=== PATIENT | male | born 1935 | race Caucasian/White ===

== ENCOUNTER 2020-05-06 13:52 | Emergency (ER) | payer MEDICARE, MEDICAID, SELFPAY ==
[2020-05-06] VITALS (7 sets, daily range): BP systolic 131–147; BP diastolic 65–89; PULSE 89–106; RESP 14–26; TEMP 36.7; O2SAT 82–97
--- NOTE | ~2020-05-06 | CT_ITS ---
EXAMINATION: CT brain wo con DATE: 05/06/2020 14:26 INDICATION: Fall. Confusion. TECHNIQUE: Computed tomography (CT) of the head was performed without intravenous contrast. The mA wa s adjusted according to patient size. Iterative reconstruction technique was employed. Exam dose: 68 1.00 mGy-cm total exam DLP. COMPARISON: 01/27/2019 CT brain FINDINGS: No intracranial mass lesion or hemorrhage, midline shift or mass effect effect. Chronic lac unar infarct of right basal ganglia. Chronic lacunar infarct of left thalamus. There is central and cortical cerebral atrophy. There is nonspecific diminished attenuation of the ce rebral white matter, likely due to chronic small vessel ischemic changes. Prominent bilateral interna l carotid artery calcifications and vertebral artery calcifications. No subdural or epidural hematoma. Mucous retention cyst or polyp of the anteromedial wall of the left maxillary sinus. Mild mucoperiost eal thickening of the anterior and lateral song of the left maxillary sinus. The paranasal sinuses o therwise are normally developed and aerated. Mastoid air cells are normally developed and aerated. No fracture or bone destruction of the cranial vault. IMPRESSION: Cerebral atherosclerosis and chronic small vessel ischemic changes of cerebral white mat ter, and bilateral chronic lacunar infarcts No acute intracranial finding Reviewed, dictated and finalized at [facility]. Reviewed, dictated and finalized at [facility]. TLING COACH IMPRESSION: Cerebral atherosclerosis and chronic small vessel ischemic changes of cerebral white matter, and bilateral chronic lacunar infarcts No acute intracranial finding
--- NOTE | 2020-05-06 14:01 | ECG_ITS ---
Measurements Intervals [place] Rate: 102 P: [place]: 0 QRS: -47 QRSD: 118 T: 78 QT: 339 QTc: 443 Interpretive Statements ATRIAL FIBRILLATION WITH RAPID VENTRICULAR RESPONSE VENTRICULAR PREMATURE COMPLEX LEFT ANTERIOR FASCICULAR BLOCK VOLTAGE CRITERIA FOR LVH BORDERLINE ST-T WAVE ABNORMALITY- HIGH LATERAL LEADS ABNORMAL ECG Electronically Signed On 05-06-2020 19:56:06 [employer] by Perez Nolen D.O.
--- NOTE | 2020-05-06 14:03 | ED.FALL ---
HPI - Fall General Chief Complaint: Fall Stated Complaint: rolled out of bed Source: patient and EMS Mode of arrival: EMS Limitations: no limitations History of Present Illness HPI Narrative: 85-year-old male came into the emergency department after a [facility] bed [facility]. Reportedly he was reaching for a drink on exam table, rolled too far and fell out of bed. According to penitentiary staff the patient had no complaints but they wanted him to get checked out anyway . Patient is able to tell me where he is, the month and year. He cannot exactly recall the events of the fall and is uncertain if he hit his head. Patient complains of no pain at this time. Related Data Home Medications Medication Instructions Recorded Confirmed clonazepam 05/06/20 furosemide 05/06/20 05/06/20 levetiracetam PO 05/06/20 lisinopril 05/06/20 memantine-donepezil [Namzaric] PO 05/06/20 mirtazapine mg 05/06/20 potassium chloride [Klor-Con 10] meq PO 05/06/20 quetiapine 05/06/20 tamsulosin mg PO 05/06/20 Allergies Allergy/AdvReac Type Severity Reaction Status Date / Time chlorpromazine Allergy Mild Unknown Verified 05/06/20 15:34 haloperidol Allergy Mild Unknown Verified 05/06/20 15:34 iodine Allergy Mild Unknown Verified 05/06/20 15:34 medrysone Allergy Mild Unknown Verified 05/06/20 15:34 olanzapine Allergy Mild Unknown Verified 05/06/20 15:34 tetanus toxoid, adsorbed Allergy Mild Unknown Verified 05/06/20 15:34 codeine Allergy Unknown Unknown Verified 05/06/20 15:34 digoxin Allergy Unknown Unknown Verified 05/06/20 15:34 fluphenazine Allergy Unknown Unknown Verified 05/06/20 15:34 LIVER AND STOM Allergy Mild Unknown Uncoded 05/06/20 15:34 SEAFOOD Allergy Mild Unknown Uncoded 05/06/20 15:34 MIKE HOSE AdvReac Unknown Unknown Uncoded 05/06/20 15:34 Review of Systems Review of Systems: Narrative: CONSTITUTIONAL: Denies fever, chills, or sweats. EYES: Denies visual changes, redness, or discharge. ENT: Denies rhinorrhea, congestion, sore throat, or otalgia. CARDIOVASCULAR: Denies chest pain, palpitations, or edema. RESPIRATORY: Denies cough or dyspnea. GASTROINTESTINAL: Denies abdominal pain, nausea, vomiting, or diarrhea. GENITOURINARY: Denies dysuria or hematuria. SKIN: Denies rash or itching. MUSCULOSKELETAL: Denies back pain, joint pain, or myalgia. NEUROLOGIC: Denies headache, numbness, dizziness, or weakness. PSYCHIATRIC: Denies anxiety or depression. Exam Narrative: Exam Narrative: GENERAL: Well-appearing, well-nourished, and in no acute distress. HEAD: Normocephalic, atraumatic. EYES: PERRLA and EOMI. ENT: Nares clear, no rhinorrhea or epistaxis. Mucous membranes moist. Oropharynx without tonsillar hypertrophy exudate or other lesions. Bilateral TMs pearly barrgia nonbulging NECK: Supple. No adenopathy or masses. No carotid bruits or JVD CHEST: Clear to auscultation. No respiratory distress. No wheezes rales or rhonchi HEART: Regular rate and rhythm. No murmur heard. Normal peripheral pulses. ABDOMEN: Soft, nontender, nondistended, normal active bowel sounds. EXTREMITIES: Normal range of motion. No edema. No TTP on either bilateral lower extremities. Chronic contractures of the bilateral upper extremities. SKIN: Warm, dry, no rash. NEURO: No focal deficits. Alert and oriented x3. PSYCH: Normal mood and affect. Course Vital Signs Vital signs: Vital Signs Temperature 36.7 C 05/06/20 13:45 Pulse Rate 95 05/06/20 13:45 Respiratory Rate 14 05/06/20 13:45 Blood Pressure 131/89 05/06/20 13:45 Temperature 36.7 C 05/06/20 13:45 Pulse Rate 95 05/06/20 13:45 Respiratory Rate 14 05/06/20 13:45 Blood Pressure 131/89 05/06/20 13:45 MDM - Fall MDM Narrative Medical decision making narrative: In brief this 85-year-old male came into the emergency department with no complaints. As the story was a little bit confused I did go ahead and CT the patient's head to rule out any signs of
== END 2020-05-06 19:15 ==
PROVIDERS: Emergency Provider Emergency Medicine; PCP Internal Medicine
DX: Z04.3 Encounter for examination and observation following other accident (principal); I48.91 Unspecified atrial fibrillation; I49.3 Ventricular premature depolarization; I44.4 Left anterior fascicular block; R94.31 Abnormal electrocardiogram [ECG] [EKG]; I67.2 Cerebral atherosclerosis; W06.XXXA Fall from bed, initial encounter
CPT/HCPCS: 70450; 93005; 99284

== ENCOUNTER 2020-09-09 13:03 | Inpatient (IN) | payer MEDICARE, MEDICAID, SELFPAY ==
[2020-09-09] VITALS (24 sets, daily range): BP systolic 72–134; BP diastolic 53–96; PULSE 54–137; RESP 16–29; TEMP 36.2; O2SAT 83–98
--- NOTE | ~2020-09-09 | US_ITS ---
EXAMINATION: US thoracentesis DATE: 09/18/2020 14:13 INDICATION: pleural effusion TECHNIQUE: The skin was prepped and draped in sterile fashion. 1% lidocaine was used for local anesth esia. Under ultrasound guidance, a 5 Fr catheter with trochar was advanced into the left pleural effu moe. Fluid was aspirated. The catheter was removed, and a dressing was applied. There were no immedi ate complications. FINDINGS: Ultrasound images demonstrate a left pleural effusion and the catheter within the fluid. IMPRESSION: 1. Successful ultrasound-guided thoracentesis yielding 1150 mL of ccfibpx-eibzs-idjeijl fluid. Reviewed, dictated and finalized at location [facility]. IMPRESSION: 1. Successful ultrasound-guided thoracentesis yielding 1150 mL of reddish-ambe r-colored fluid.
--- NOTE | ~2020-09-09 | XR_ITS ---
EXAMINATION: [id number] DATE: 09/17/2020 16:02 INDICATION: Left pleural effusion status post thoracentesis. TECHNIQUE: Anteroposterior and lateral views of the chest were obtained. COMPARISON: Chest single view 09/14/2020 FINDINGS: The patient is rotated to his left on the frontal view. There is complete opacification of left hemithorax with rightward displacement of the mediastinum, consistent with large pleural effusio n. There is a small right pleural effusion. No pneumothorax. Calcified right hilar lymph nodes are co nsistent with old granulomatous disease. The heart size is obscured. There are surgical clips in the abdomen. IMPRESSION: 1. Large left pleural effusion with complete opacification of left hemithorax and rightward displacem ent of the mediastinum. 2. Stable small right pleural effusion. Reviewed, dictated and finalized at location [facility]. IMPRESSION: 1. Large left pleural effusion with complete opacification of left hemithorax a nd rightward displacement of the mediastinum. 2. Stable small right pleural effusion.
--- NOTE | ~2020-09-09 | XR_ITS ---
EXAMINATION: XR chest 1V portable INDICATION: Pleural effusion TECHNIQUE: Portable AP chest at 0946 hours COMPARISON: 09/10/2020 FINDINGS: There is persistent complete opacification of the left hemithorax. There is mild persistent rightward shift of the mediastinum. A small right pleural effusion is noted. The cardiac silhouette is obscured. No pneumothorax is identified. Healed left-sided rib fractures are noted. IMPRESSION: 1. Persistent complete opacification of the left hemithorax, predominantly pleural effusion. 2. Small right pleural effusion. Reviewed, dictated and finalized at location [facility]. IMPRESSION: 1. Persistent complete opacification of the left hemithorax, predominantly pleu ral effusion. 2. Small right pleural effusion.
--- NOTE | ~2020-09-09 | XR_ITS ---
EXAMINATION: XR chest 1V portable INDICATION: Cough TECHNIQUE: Portable AP chest at 1359 hours COMPARISON: 01/01/2018 FINDINGS: There is complete opacification of the left hemithorax. The cardiac silhouette is obscured. There are patchy opacities of the right mid and lower lung zones. No pneumothorax is identified. IMPRESSION: 1. Complete opacification of the left hemithorax which could be due to effusion, atelectasis, mass, o r a combination thereof. Further evaluation with CT of the chest with contrast is recommended. 2. Patchy opacities of the right mid and lower lung zones, consistent with atelectasis versus pneumon ia. Reviewed, dictated and finalized at location [facility]. IMPRESSION: 1. Complete opacification of the left hemithorax which could be due to effusion , atelectasis, mass, or a combination thereof. Further evaluation with CT of th e chest with contrast is recommended. 2. Patchy opacities of the right mid and lower lung zones, consistent with atel ectasis versus pneumonia.
--- NOTE | ~2020-09-09 | US_ITS ---
EXAMINATION: US thoracentesis DATE: 09/10/2020 16:08 INDICATION: Left pleural effusion. TECHNIQUE: The skin was prepped and draped in sterile fashion. 1% lidocaine was used for local anesth esia. Under ultrasound guidance, a 5 Fr catheter with trochar was advanced into the left pleural effu moe. Fluid was aspirated. The catheter was removed, and a dressing was applied. There were no immedi ate complications. FINDINGS: Ultrasound images demonstrate a left pleural effusion and the catheter within the fluid. IMPRESSION: 1. Successful ultrasound-guided thoracentesis yielding 1000 mL of clear, yellow fluid. Reviewed, dictated and finalized at location [facility]. IMPRESSION: 1. Successful ultrasound-guided thoracentesis yielding 1000 mL of clear, yello w fluid.
--- NOTE | ~2020-09-09 | XR_ITS ---
EXAMINATION: XR barium swallow modified DATE: 09/13/2020 09:10 INDICATION: Cough TECHNIQUE: Modified barium esophagram was performed by myself to administered fluoroscopy, in conjun ction with speech pathologist who administered barium in varying consistencies as per speech patholog ist documentation. This was recorded on tape. A single fluoroscopic spot image was recorded. The DAP for this procedure was 14.662 Gycm2. Fluoroscopy exposure time was 5.9 minutes. FINDINGS: Oral stage: Adequate function. Pharyngeal phase: Adequate function. Laryngeal penetration: Present with thin and mildly thickened liquids. Aspiration: Suspected. Laryngeal sensitivity: Absent. IMPRESSION: Laryngeal penetration with suspected aspiration. Please refer to speech pathologist findi ngs and specific feeding recommendations. Reviewed, dictated and finalized at location [facility]. IMPRESSION: Laryngeal penetration with suspected aspiration. Please refer to sp eech pathologist findings and specific feeding recommendations.
--- NOTE | ~2020-09-09 | XR_ITS ---
[id number] 09/12/2020 13:59 Indication: Postthoracentesis. Evaluate for pneumothorax. Procedure: AP portable chest Comparison: 09/10/2020 Findings: Large left pleural effusion with complete opacification left hemithorax. No pneumothorax id entified. Right basilar airspace disease. Cardiomegaly. There is atherosclerosis of the aorta. Small right pleural effusion. Impression: 1: Large left pleural effusion with complete opacification of the left hemithorax. 2: Right basilar airspace disease, atelectasis versus pneumonia. 3: Small right pleural effusion. Reviewed, dictated and finalized at location [facility]. Impression: 1: Large left pleural effusion with complete opacification of the left hemithor ax. 2: Right basilar airspace disease, atelectasis versus pneumonia. 3: Small right pleural effusion.
--- NOTE | ~2020-09-09 | US_ITS ---
EXAMINATION: US art doppler w press UE BI DATE: 09/13/2020 14:11 INDICATION: Cyanosis at the right hand. TECHNIQUE: Segmental pressures and plethysmographic and Doppler waveforms of the upper extremity margarita kathy were obtained. COMPARISON: None. FINDINGS: Right and left brachial artery pressures of 137 mm Hg and 149 mm Hg, respectively, are concordant (no rmal difference <= 30 mmHg). The right wrist-brachial index is 0.96 (normal > 1.0). Finger pressures were unable to be obtained to assess for finger brachial indices due to artifact from persistent coral ent movement. Arterial waveforms are biphasic with brisk systolic upstrokes throughout the right uppe r limb (normal upstroke < 0.2 s). The right wrist brachial index is 0.96. The right wrist-brachial index is 0.96 (normal > 1.0). Finger pressures were unable to be obtained to assess for finger brachial indices due to artifact from pers istent patient movement. Arterial waveforms are biphasic with brisk systolic upstrokes throughout the left upper limb. IMPRESSION: 1. Mild arterial occlusive disease to the bilateral upper limits with mildly decreased bilateral wris t brachial indices. 2. Cardiac arrhythmia is present. Correlate with EKG. Reviewed, dictated and finalized at location A. IMPRESSION: 1. Mild arterial occlusive disease to the bilateral upper limits with mildly de creased bilateral wrist brachial indices. 2. Cardiac arrhythmia is present. Correlate with EKG.
--- NOTE | ~2020-09-09 | XR_ITS ---
XR hip RT min 3V w AP pelvis 09/12/2020 13:59 Indication: Right hip pain Procedure: AP pelvis and 3 views right hip Comparison: No prior studies for comparison. Findings: Moderate osteoarthritis of the hips. Moderate rectal fecal loading. No fracture or traumati c malalignment is identified. There are extensive vascular calcifications. Impression: 1: No acute fracture. 2: Moderate bilateral osteoarthritis of the hips. Reviewed, dictated and finalized at location B. Impression: 1: No acute fracture. 2: Moderate bilateral osteoarthritis of the hips.
--- NOTE | ~2020-09-09 | US_ITS ---
EXAMINATION: US thoracentesis DATE: 09/14/2020 13:24 INDICATION: Left pleural effusion TECHNIQUE: The procedure and its risks and benefits were discussed with the patient. Potential risks discussed included bleeding, infection, and pneumothorax. The patient understood the risks and agreed to proceed. The skin was prepped and draped in sterile fashion. 1% lidocaine was used for local anes thesia. Under ultrasound guidance, a 5 Fr catheter with trochar was advanced into the left pleural ef fusion. Fluid was aspirated. The catheter was removed, and a dressing was applied. There were no imme diate complications. FINDINGS: Ultrasound images demonstrate a large left pleural effusion and the catheter within the fluid. IMPRESSION: 1. Successful ultrasound-guided thoracentesis yielding 1100 mL of kdvgday-[id number] fluid. Reviewed, dictated and finalized at location A. IMPRESSION: 1. Successful ultrasound-guided thoracentesis yielding 1100 mL of reddish-ambe r-colored fluid.
--- NOTE | ~2020-09-09 | US_ITS ---
EXAMINATION: US venous doppler [facility] DATE: 09/10/2020 17:25 INDICATION: Lower limb swelling. TECHNIQUE: Grayscale ultrasound images without and with compression and Doppler ultrasound images of the bilateral lower extremity veins were obtained. COMPARISON: None. FINDINGS: The visualized portions of right common femoral vein, profunda (deep) femoral vein, femoral vein, pop liteal vein, peroneal veins, posterior tibial veins, and greater saphenous vein outflow are patent. The visualized portions of left common femoral vein, profunda femoral vein, femoral vein, popliteal v ein, peroneal veins, posterior tibial veins, and greater saphenous vein outflow are patent. IMPRESSION: 1. No deep venous thrombosis. Reviewed, dictated and finalized at location A.
--- NOTE | ~2020-09-09 | XR_ITS ---
EXAMINATION: [id number]_CR DATE: 09/10/2020 16:20 INDICATION: Left pleural effusion status post thoracentesis. TECHNIQUE: A single frontal view of the chest was obtained. COMPARISON: Chest single view 09/09/2020, chest CT 09/10/2020 FINDINGS: The patient is rotated to his left. There is complete opacification of left hemithorax. The re is a small right pleural effusion. There are airspace opacities at right lung base, likely atelect asis. No pneumothorax. The heart size is obscured. There are old healed left rib fractures. IMPRESSION: 1. Complete opacification of left hemithorax, likely predominantly large pleural effusion. Improvemen t in the previously seen rightward mediastinal shift status post left-sided thoracentesis. 2. Small right pleural effusion. Reviewed, dictated and finalized at location A. IMPRESSION: 1. Complete opacification of left hemithorax, likely predominantly large pleura l effusion. Improvement in the previously seen rightward mediastinal shift stat us post left-sided thoracentesis. 2. Small right pleural effusion.
--- NOTE | ~2020-09-09 | US_ITS ---
EXAMINATION: US thoracentesis DATE: 09/17/2020 16:04 INDICATION: pleural effusion TECHNIQUE: Consent was provided by the patient's daughter. The skin was prepped and draped in sterile fashion. 1% lidocaine was used for local anesthesia. Under ultrasound guidance, a 5 Fr catheter with trochar was advanced into the left pleural effusion. Fluid was aspirated. The catheter was removed, and a dressing was applied. There were no immediate complications. FINDINGS: Ultrasound images demonstrate a left pleural effusion and the catheter within the fluid. IMPRESSION: 1. Successful ultrasound-guided thoracentesis yielding 1000 mL of reddish tiffany-colored fluid. Reviewed, dictated and finalized at location A. IMPRESSION: 1. Successful ultrasound-guided thoracentesis yielding 1000 mL of reddish ambe r-colored fluid.
--- NOTE | ~2020-09-09 | XR_ITS ---
EXAMINATION: [id number]_CR DATE: 09/14/2020 13:24 INDICATION: Left pleural effusion postthoracentesis TECHNIQUE: frontal view of the chest was obtained. COMPARISON: 09/13/2020 FINDINGS: Persistent complete opacification of left hemithorax consistent with large left pleural effusion and near-complete of not complete left lung collapse. Persistent opacities in the right lower lung zone c onsistent with small right pleural effusion and associated basilar atelectasis and/or pneumonia. No p neumothorax. Cardiomegaly. IMPRESSION: 1. Persistent complete opacification of the left hemithorax consistent with large left pleural effusi on and complete or near complete collapse of the left lung. 2. Unchanged small right pleural effusion with right basilar atelectasis and/or pneumonia. Reviewed, dictated and finalized at location A. IMPRESSION: 1. Persistent complete opacification of the left hemithorax consistent with lar ge left pleural effusion and complete or near complete collapse of the left pito g. 2. Unchanged small right pleural effusion with right basilar atelectasis and/or pneumonia.
--- NOTE | ~2020-09-09 | XR_ITS ---
EXAMINATION: [id number]_CR DATE: 09/18/2020 14:17 INDICATION: Left pleural effusion status post thoracentesis. TECHNIQUE: Frontal and lateral views of the chest were obtained. COMPARISON: Chest 2 views 09/17/2020 FINDINGS: The patient is rotated to his left on the frontal view. There is a small right pleural effu moe. There is complete opacification of left hemithorax with rightward displacement of the mediastin um. There is mild atelectasis at right lung base. No pneumothorax. The heart size is obscured. There are old healed bilateral rib fractures. Surgical clips in the right upper quadrant are likely from ch olecystectomy. IMPRESSION: 1. Large left pleural effusion with complete opacification of left hemithorax and rightward displacem ent of the mediastinum. 2. Stable small right pleural effusion. Reviewed, dictated and finalized at location A. IMPRESSION: 1. Large left pleural effusion with complete opacification of left hemithorax a nd rightward displacement of the mediastinum. 2. Stable small right pleural effusion.
--- NOTE | ~2020-09-09 | CT_ITS ---
EXAMINATION: CT chest high resolution wo co DATE: 09/10/2020 08:14 INDICATION: Abnormal chest x-ray. Pleural effusion. TECHNIQUE: Computed tomography (CT) of the chest was performed without intravenous contrast. The dose -length product was 299.53 mGy-cm. Automated exposure control and iterative reconstruction technique were employed. COMPARISON: Chest x-ray dated 09/09/2020 FINDINGS: Large left pleural effusion. Moderate right pleural effusion. Mediastinal shift to the righ t. There is atherosclerosis of the aorta and coronary arteries. There is mediastinal lymphadenopathy. There is compressive atelectasis of the left lung which is completely collapsed. There is compressiv e atelectasis of the right lung. There is focal masslike consolidation in the right upper lobe with a ir bronchograms, most likely infectious/inflammatory, although neoplasm is not excluded. There is dex troscoliosis with mild thoracic spondylosis. IMPRESSION: 1. Masslike consolidation right upper lobe near the apex, most likely infectious/inflammatory, althou gh neoplasm excluded. 2: Large left and moderate right pleural effusions with underlying compressive atelectasis. 3: Mediastinal shift to the right. 4: Mediastinal lymphadenopathy, nonspecific. Reviewed, dictated and finalized at location B. IMPRESSION: 1. Masslike consolidation right upper lobe near the apex, most likely infectiou s/inflammatory, although neoplasm excluded. 2: Large left and moderate right pleural effusions with underlying compressive atelectasis. 3: Mediastinal shift to the right. 4: Mediastinal lymphadenopathy, nonspecific.
--- NOTE | ~2020-09-09 | CT_ITS ---
EXAMINATION: CT brain wo con INDICATION: Altered mental status COMPARISON: 05/06/2020 TECHNIQUE: Standard unenhanced head CT. The dose-length product (DLP) was 908.00 mGy-cm. The mA was a djusted according to patient size. Iterative reconstruction technique was employed. FINDINGS: Motion artifact 6limits the examination. There is no acute intraparenchymal hemorrhage. No evidence of mass lesion. No evidence of acute infarction. There is moderate periventricular and subco rtical hypodensity probably related to small vessel ischemic disease. There is moderate prominence of the sulci and ventricles related to cerebral atrophy. Intracranial calcified cerebral atherosclerosi s is noted. There are no extra-axial collections. There is no mass effect or midline shift. The orbit s and soft tissues are unremarkable. There is mild mucosal thickening of the paranasal sinuses. IMPRESSION: 1. No acute intracranial abnormality. 2. Age related findings. Reviewed, dictated and finalized at location A.
--- NOTE | ~2020-09-09 | US_ITS ---
EXAMINATION: US thoracentesis DATE: 09/13/2020 14:00 INDICATION: Left pleural effusion TECHNIQUE: The procedure and its risks and benefits were discussed with the patient. Potential risks discussed included bleeding, infection, and pneumothorax. The patient understood the risks and agreed to proceed. The skin was prepped and draped in sterile fashion. 1% lidocaine was used for local anes thesia. Under ultrasound guidance, a 5 Fr catheter with trochar was advanced into the left pleural ef fusion. Fluid was aspirated. The catheter was removed, and a dressing was applied. There were no imme diate complications. FINDINGS: Ultrasound images demonstrate a large left pleural effusion and the catheter within the fluid. IMPRESSION: 1. Successful ultrasound-guided thoracentesis yielding 1000 mL of clear tiffany-colored fluid. Reviewed, dictated and finalized at location A. IMPRESSION: 1. Successful ultrasound-guided thoracentesis yielding 1000 mL of clear tiffany- colored fluid.
--- NOTE | ~2020-09-09 | XR_ITS ---
EXAMINATION: [id number]_[id number]_CR DATE: 09/13/2020 14:03 INDICATION: Left pleural effusion postthoracentesis TECHNIQUE: frontal view of the chest was obtained. COMPARISON: Chest radiograph dated 09/12/2020 FINDINGS: Persistent complete opacification of the left hemithorax consistent with large left pleural effusion and near complete if not complete left lower lobar collapse. Opacities in the right lower lung zone c onsistent with small right pleural effusion and associated basilar atelectasis and/or pneumonia. No p neumothorax. Borderline heart size accounting for AP technique. Aneurysmal thoracic aorta. Thoracic d extrocurvature with moderate spondylosis. Chronic nonunited lateral left clavicle fracture. IMPRESSION: 1. Persistent complete opacification of the left hemithorax consistent with large left pleural effusi on and complete or near complete collapse of the left lung. 2. Small right pleural effusion with right basilar atelectasis and/or pneumonia. Reviewed, dictated and finalized at location A. IMPRESSION: 1. Persistent complete opacification of the left hemithorax consistent with lar ge left pleural effusion and complete or near complete collapse of the left pito g. 2. Small right pleural effusion with right basilar atelectasis and/or pneumonia .
--- NOTE | ~2020-09-09 | US_ITS ---
EXAMINATION: US renal BI DATE: 09/10/2020 17:25 INDICATION: Acute kidney injury. TECHNIQUE: Multiple ultrasound grayscale images of the kidneys were obtained. COMPARISON: None. FINDINGS: The right kidney measures 9.1 x 5.1 x 4.8 cm. The left kidney measures 7.8 x 3.8 x 4.2 cm. The kidney s demonstrate normal parenchymal echogenicity. There is a 1.3 cm cyst in left kidney. There is no hyd ronephrosis. The bladder is decompressed by a Verdugo catheter. There is a small volume of perihepatic ascites. IMPRESSION: 1. Mild atrophy of left kidney. No hydronephrosis. 2. Small volume of perihepatic ascites. Reviewed, dictated and finalized at location A.
--- NOTE | ~2020-09-09 | US_ITS ---
EXAMINATION: US venous doppler [facility] DATE: 09/18/2020 14:14 INDICATION: Lower limb swelling TECHNIQUE: Cruz scale images without and with compression and Doppler images of the bilateral lower e xtremity veins were obtained. COMPARISON: 09/10/2020 FINDINGS: The right common femoral vein, profunda femoral vein, femoral vein, popliteal vein, peroneal trunk, p osterior tibial veins, and greater saphenous vein are patent. The left common femoral vein, profunda femoral vein, femoral vein, popliteal vein, peroneal trunk, po sterior tibial veins, and greater saphenous vein are patent. IMPRESSION: 1. Patent bilateral lower extremity veins. No evidence of deep venous thrombosis. Reviewed, dictated and finalized at location B. IMPRESSION: 1. Patent bilateral lower extremity veins. No evidence of deep venous thrombosi s.
--- NOTE | ~2020-09-09 | US_ITS ---
EXAMINATION: US thoracentesis DATE: 09/12/2020 13:56 INDICATION: Left pleural effusion TECHNIQUE: The procedure and its risks and benefits were discussed with the patient. Potential risks discussed included bleeding, infection, and pneumothorax. The patient understood the risks and agreed to proceed. The skin was prepped and draped in sterile fashion. 1% lidocaine was used for local anes thesia. Under ultrasound guidance, a 5 Fr catheter with trochar was advanced into the left pleural ef fusion. Fluid was aspirated. The catheter was removed, and a dressing was applied. There were no imme diate complications. FINDINGS: Ultrasound images demonstrate a large left pleural effusion and the catheter within the fluid. IMPRESSION: 1. Successful ultrasound-guided thoracentesis yielding 1000 mL of clear tiffany-colored fluid. Reviewed, dictated and finalized at location A. IMPRESSION: 1. Successful ultrasound-guided thoracentesis yielding 1000 mL of clear tiffany- colored fluid.
--- NOTE | 2020-09-09 13:19 | ECG_ITS ---
Measurements Intervals [place] Rate: 115 P: [place]: 0 QRS: -3 QRSD: 94 T: 208 QT: 296 QTc: 410 Interpretive Statements ATRIAL FIBRILLATION WITH RAPID VENTRICULAR RESPONSE INCOMPLETE RIGHT BUNDLE BRANCH BLOCK ST-T WAVE ABNORMALITY IN ANTEROLAT/HIGH LAT LEADS- CONSIDER ISCHEMIA ABNORMAL ECG Electronically Signed On 09-09-2020 19:25:05 CDT by Perez Nolen D.O.
[2020-09-09] MEDS: IPRATROPIUM BR 0.02% INH SOLN 0.5 MG/2.5 ML VIAL INHALATION ×2 (13:58→21:10)
[2020-09-09] MEDS: ALBUTEROL SULFATE NEB 2.5 MG/0.5 ML INH 5 MG INHALATION ×2 (13:58→21:10)
[2020-09-09 14:22] LABS: Basophils Percent Auto 0.3 % (0.2-1.2); Hematocrit 47.2 % (42.0-52.0); Hemoglobin 14.4 g/dL (14.0-18.0); Immature Granulocyte Absolute 0.04 K/mm3 (0.00-0.031); Immature Granulocyte Percent A 0.4 % (0-0.5); Lymphocytes Absolute Auto 0.77 K/mm3 (0.9-3.2); Mean Corpuscular HGB Conc 30.5 g/dl (32-36); Mean Corpuscular Hemoglobin 31.1 pg (26-34); Mean Corpuscular Volume 101.9 fl (80-100); Monocytes Absolute Auto 0.5 K/mm3 (0.1-0.6); Neutrophils Absolute Auto 8.3 K/mm3 (1.3-6.7); Neutrophils Percent Auto 86.3 % (45.5-73.1); Platelet Count Result 256 k/mm3 (150-375); Red Blood Count 4.63 M/mm3 (4.6-6.20); White Blood Count 9.6 K/mm3 (4.5-10.0)
[2020-09-09 14:31] LABS: Lactic Acid Reflex 1.4 mmol/L (0.7-2.1)
[2020-09-09 15:03] LABS: Anion Gap 13 mmol/L (8-16); Blood Urea Nitrogen 62 mg/dL (9-20); Calcium 9.7 mg/dL (8.4-10.2); Carbon Dioxide 20 mmol/L (22-30); Chloride 111 mmol/L (98-107); Estimated CRCL calculation 22 ml/min; Estimated Glomerular Filt Rate 30; Glucose 122 mg/dL (75-110); Potassium 5.2 mmol/L (3.4-5.0); Sodium 144 mmol/L (137-145)
--- NOTE | 2020-09-09 16:34 | ED.AMS ---
HPI - Altered Mental Status General Chief Complaint: Altered Mental Status Stated Complaint: unresponsive Time Seen by Provider: 09/09/20 13:41 Source: EMS and old records reviewed Mode of arrival: EMS Limitations: clinical condition and dementia History of Present Illness HPI narrative: 85-year-old male Sent from nursing facility for evaluation of unresponsiveness There is a bit of lack of clarity as to whether he is a comfort measures patient or a DNR patient penitentiary is unclear and family cannot be reached Either way there is not a ton of history in their paperwork and the patient cannot contribute Related Data Home Medications Medication Instructions Recorded Confirmed clonazepam 05/06/20 furosemide 05/06/20 05/06/20 levetiracetam PO 05/06/20 lisinopril 05/06/20 memantine-donepezil [Namzaric] PO 05/06/20 mirtazapine mg 05/06/20 potassium chloride [Klor-Con 10] meq PO 05/06/20 quetiapine 05/06/20 tamsulosin mg PO 05/06/20 Allergies Allergy/AdvReac Type Severity Reaction Status Date / Time chlorpromazine Allergy Mild Unknown Verified 05/06/20 15:34 haloperidol Allergy Mild Unknown Verified 05/06/20 15:34 iodine Allergy Mild Unknown Verified 05/06/20 15:34 medrysone Allergy Mild Unknown Verified 05/06/20 15:34 olanzapine Allergy Mild Unknown Verified 05/06/20 15:34 tetanus toxoid, adsorbed Allergy Mild Unknown Verified 05/06/20 15:34 codeine Allergy Unknown Unknown Verified 05/06/20 15:34 digoxin Allergy Unknown Unknown Verified 05/06/20 15:34 fluphenazine Allergy Unknown Unknown Verified 05/06/20 15:34 LIVER AND STOM Allergy Mild Unknown Uncoded 05/06/20 15:34 SEAFOOD Allergy Mild Unknown Uncoded 05/06/20 15:34 MIKE HOSE AdvReac Unknown Unknown Uncoded 05/06/20 15:34 Review of Systems Review of Systems: ROS unobtainable: Yes unobtainable due to medical condition and unobtainable due to mental status PMFSH Social History Social History Gender identity (if verbalized by the patient): Male Exam Const: General: cooperative Limitations: altered mental status Other: Opens eyes to command HENMT: Head: normal to inspection, normocephalic and atraumatic Ears: external ears normal General nose exam: no epistaxis Mouth: Yes dry mucous membranes Eyes: Conjunctivae: conjunctivae normal EOM: EOMs intact bilaterally Neck: Neck: normal visual inspection, supple and no JVD Resp: Effort & Inspection: normal respiratory effort, labored and tachypneic Auscultation: diminished lung sounds and other (BS =) Cardio: Rate: tachycardic Rhythm: abnormal rhythm irregularly irregular GI: GI Palp: Yes Soft to palpation and No Guarding due to palpation present (GI) Skin: General skin exam: normal color and no rashes or lesions noted Neuro: Other: Limited exam, opens eyes Extrem: General: edema Course Vital Signs Vital signs: Vital Signs Temperature 36.2 C L 09/09/20 13:15 Pulse Rate 125 H 09/09/20 13:15 Respiratory Rate 18 09/09/20 13:15 Blood Pressure 122/96 H 09/09/20 13:15 Pulse Oximetry 98 09/09/20 13:15 Temperature 36.2 C L 09/09/20 13:15 Pulse Rate 115 H 09/09/20 15:27 Respiratory Rate 26 H 09/09/20 15:27 Blood Pressure 101/78 09/09/20 15:27 Pulse Oximetry 94 09/09/20 15:27 MDM - Altered Mental Status Lab Data Result diagrams: 09/09/20 14:15 09/09/20 14:44 Labs: Lab Results 09/09/20 09/09/20 09/09/20 Range/Units 14:15 14:15 14:44 WBC 9.6 (4.5-10.0) K/mm3 RBC 4.63 (4.6-6.20) M/mm3 Hgb 14.4 (14.0-18.0) g/dL Hct 47.2 (42.0-52.0) % MCV 101.9 H (80-100) fl MCH 31.1 (26-34) pg MCHC 30.5 L (32-36) g/dl RDW 15.0 H (11.5-14.5) % Plt Count 256 (150-375) k/mm3 MPV 11.0 H (7.4-10.4) fl Immature Gran % (Auto) 0.4 (0-0.5) % Neut % (Auto) 86.3 H (45.5-73.1) % Lymph % (Auto) 8.0 L (18.3-44.2) % [place] % (Auto) 5
[2020-09-09] MEDS: METOPROLOL TARTRATE INJ 5 MG/5 ML VIAL IV PUSH (17:13)
[2020-09-09] MEDS: LACTATED RINGERS 1,000 ML 150 ML IV CONT (17:17)
[2020-09-09] MEDS: LORazepam INJ (*CRX) 2 MG/ML VIAL 1 MG IV PUSH (18:09)
--- NOTE | 2020-09-09 21:35 | PM.IMHP ---
H&P: HPI History of Present Illness Date/Time: 09/09/20 21:35 this is a 85-year-old male patient who resides at [facility]. The patient is listed as a DNR. Patient is not able to answer questions. Initially in the emergency room there was some question whether the patient was DNR full code. But after reviewing the half-way paperwork it is clear that the patient is a DNR. The patient does have a history of altered mental status. He has signs involving cognitive function and awareness. The patient has a history of nontraumatic intracranial hemorrhage. He has a history of dysphagia. Of the left blue thorax which could be due to fusion, atelectasis, mass or combination thereof. Patchy opacities of the right in the lower lung zones, consistent with atelectasis versus pneumonia. The patient was started on azithromycin Rocephin. The patient is hypoxic. He was placed on oxygen 2-3 L. He was started on IV fluids. He was given Ativan, a azithromycin Rocephin in the emergency room. The patient is being admitted to inpatient services on the date of service of 09/09/2020. Chief Complaint: Unresponsiveness Review of Systems Review of Systems: ROS unobtainable: Yes unobtainable due to mental status PMFSH Past Medical History Medical History (Updated 09/09/20 @ 22:05 by Angeli Renteria NP) Anxiety Atrial fibrillation BPH (benign prostatic hyperplasia) Chronic GERD Dementia Dysphagia History of DVT (deep vein thrombosis) History of intracranial hemorrhage HTN (hypertension), malignant Seizure disorder Surgical History Surgical History (Updated 09/09/20 @ 21:49 by Angeli Renteria NP) H/O abdominal surgery The patient has multiple scars on his abdomen Family History Family History (Updated 09/09/20 @ 21:51 by Angeli Renteria NP) Unknown Unknown family medical history Social History Social History (Updated 09/09/20 @ 21:52 by Angeli Renteria NP) Social History: The patient is listed as a DNR. According to his face sheet he is retired and . There was a ector that is listed as durable power litigation attorney. Gender identity (if verbalized by the patient): Male Meds Home Medications and Allergies Home Medications Medication Instructions Recorded Confirmed Type clonazepam 05/06/20 History furosemide 05/06/20 05/06/20 History levetiracetam PO 05/06/20 History lisinopril 05/06/20 History memantine-donepezil [Namzaric] PO 05/06/20 History mirtazapine mg 05/06/20 History potassium chloride [Klor-Con 10] meq PO 05/06/20 History quetiapine 05/06/20 History tamsulosin mg PO 05/06/20 History acetaminophen 325 mg PO ONCE PRN 09/09/20 09/09/20 History azithromycin 09/09/20 History calcium carbonate 600 mg PO DAILY 09/09/20 09/09/20 History ferrous sulfate [iron] 325 mg PO DAILY 09/09/20 09/09/20 History Allergies Allergy/AdvReac Type Severity Reaction Status Date / Time chlorpromazine Allergy Mild Unknown Verified 09/09/20 19:14 haloperidol Allergy Mild Unknown Verified 09/09/20 19:14 iodine Allergy Mild Unknown Verified 09/09/20 19:14 medrysone Allergy Mild Unknown Verified 09/09/20 19:14 olanzapine Allergy Mild Unknown Verified 09/09/20 19:14 tetanus toxoid, adsorbed Allergy Mild Unknown Verified 09/09/20 19:14 codeine Allergy Unknown Unknown Verified 09/09/20 19:14 digoxin Allergy Unknown Unknown Verified 09/09/20 19:14 fluphenazine Allergy Unknown Unknown Verified 09/09/20 19:14 LIVER AND STOM Allergy Mild Unknown Uncoded 09/09/20 19:14 SEAFOOD Allergy Mild Unknown Uncoded 09/09/20 19:14 MIKE HOSE AdvReac Unknown Unknown Uncoded 09/09/20 19:14 Vital Signs Vital Signs - 24 hr 09/09/20 13:15 09/09/20 13:31 09/09/20 13:46 Temperature 36.2 C L Pulse Rate 125 H 135 H 135 H Respiratory Rate 18 20 22 H Blood Pressure 122/96 H 134/94 H 120/81 Pulse Oximetry 98 94 94 09/09/20 13:58 09/09/20 14:02 09/09/20 14:09 Temperature Pulse Rate 122 H 137 H
[2020-09-09] MEDS: FAMOTIDINE 20 MG/2 ML VIAL IV PUSH (22:37)
[2020-09-09] MEDS: levETIRAcetam 500MG/NACL 100ML 500 MG/100 ML BAG 400 MG IVPB (23:22)
[2020-09-10] VITALS (18 sets, daily range): BP systolic 87–132; BP diastolic 61–90; PULSE 50–102; RESP 20–47; TEMP 35.8–36.7; O2SAT 81–100
[2020-09-10] MEDS: IPRATROPIUM BR 0.02% INH SOLN 0.5 MG/2.5 ML VIAL INHALATION ×4 (02:07→20:23)
[2020-09-10] MEDS: ALBUTEROL SULFATE NEB 2.5 MG/0.5 ML INH 5 MG INHALATION ×4 (02:07→20:23)
--- NOTE | 2020-09-10 06:26 | ADMGEN ---
This patient, Rich Elliott, was admitted to [address] [facility] Surg Room 321-01. Patient/family oriented to hospital policies and general routines including ID bracelet, bed and alarms, visiting hours, pain management, procedures, bathroom and other care routines, personal items, smoking policy, room service/diet, and visiting hours. Information on how to activate the Rapid Response Team has been discussed. Patient/Family are encouraged to report perceived risks to care and to ask questions if they do not understand what they are told or what they should do. Patient has been unresponsive for the entire shift. He was admitted at 1930. ED held him for approximately 3 hours after they said they would admit him. Then the ED nurse demanded that the receiving RN take report immediately while they were taking shift report for their other patients. Report was taken by the charge nurse and it was briefly relayed to the receiving nurse after shift report. It was reported that he was here for comfort care though the orders and report appear to indicate he is here for treatment of pleural effusion. Only his R upper lobe appeared clear, the rest of his lung su were severely diminished to absent. He was not responsive to anything but sternal rub, all 4 extremities were flaccid. He came with a medication list from his facility. A Verdugo was inserted with immediate results of about 50 ml clear yellow urine. It was reported that family was not responding to phone calls.
[2020-09-10 06:31] LABS: Basophils Percent Auto 0.4 % (0.2-1.2); Hematocrit 44.5 % (42.0-52.0); Hemoglobin 13.6 g/dL (14.0-18.0); Immature Granulocyte Absolute 0.03 K/mm3 (0.00-0.031); Immature Granulocyte Percent A 0.4 % (0-0.5); Lymphocytes Absolute Auto 0.92 K/mm3 (0.9-3.2); Lymphocytes Percent Auto 11.5 % (18.3-44.2); Mean Corpuscular HGB Conc 30.6 g/dl (32-36); Mean Corpuscular Hemoglobin 31.1 pg (26-34); Mean Corpuscular Volume 101.6 fl (80-100); Mean Platelet Volume 10.2 fl (7.4-10.4); Monocytes Absolute Auto 0.6 K/mm3 (0.1-0.6); Neutrophils Absolute Auto 6.4 K/mm3 (1.3-6.7); Neutrophils Percent Auto 79.7 % (45.5-73.1); Platelet Count Result 250 k/mm3 (150-375); Red Blood Count 4.38 M/mm3 (4.6-6.20); Red Cell Distribution Width 14.7 % (11.5-14.5)
[2020-09-10 06:39] LABS: Alanine Aminotransferase 26 U/L (4-50); Albumin Level 3.8 g/dL (3.5-5.1); Alkaline Phosphatase 105 U/L (38-126); Anion Gap 12 mmol/L (8-16); Aspartate Amino Transferase 34 U/L (17-59); Bilirubin,Total 0.5 mg/dL (0.2-1.3); Blood Urea Nitrogen 70 mg/dL (9-20); Calcium 9.5 mg/dL (8.4-10.2); Carbon Dioxide 25 mmol/L (22-30); Chloride 108 mmol/L (98-107); Estimated CRCL calculation 16 ml/min; Estimated Glomerular Filt Rate 22; Glucose 108 mg/dL (75-110); Lactic Acid Reflex 1.7 mmol/L (0.7-2.1); Magnesium 2.4 mg/dL (1.6-2.3); Potassium 5.1 mmol/L (3.4-5.0); Sodium 145 mmol/L (137-145)
[2020-09-10 10:10] LABS: Alveolar/Arterial O2 Gradient 86.5 mmHg; Base Excess ABG -4.8 mEq/l (+/-2.0); Carboxyhemoglobin 0.4 % THb (0-2.0); Fractional Inspired Oxygen 32 %; HCO3 ABG 23.7 mEq/l (22.0-26.0); Methemoglobin ABG 0.3 %THb (0-1.5); Oxygen Content ABG 19.2 %vol (16.0-22.0); Oxygen Saturation ABG 91.8 % (95.0-100.0); PO2 ABG 73.8 mmHg (80.0-100.0); PO2 FiO2 Ratio Arterial Blood 2.31 %; Reduced Hemoglobin 6.3 %THb (0-5.0); Total Hemoglobin 14.7 g/dL (12.0-18.0)
[2020-09-10 10:12] LABS: Ammonia < 9 umol/L (9-30)
[2020-09-10 10:13] LABS: Lactic Acid Reflex 1.5 mmol/L (0.7-2.1)
[2020-09-10 10:15] LABS: Modified Allen's Test Pass; Site Drawn LEFT RADIAL; pH ABG 7.229 (7.350-7.450)
[2020-09-10 10:15] LABS: INR 1.2; Prothrombin Time 16.2 Seconds (11.1-14.7)
[2020-09-10 10:16] LABS: Device NASAL CANNULA
[2020-09-10 10:27] LABS: Troponin I 0.072 ng/mL (0.000-0.034)
[2020-09-10 10:29] LABS: Estimated CRCL calculation 16 ml/min; Estimated Glomerular Filt Rate 21
[2020-09-10 11:22] LABS: Folic Acid 11.5 ng/mL (2.76->20); Vitamin B12 > 1000.0 pg/mL (239-931)
--- NOTE | 2020-09-10 12:06 | PM.IMPN ---
Progress Note: A&P Assessment and Plan (1) Respiratory acidosis: Code(s): E87.2 - Acidosis Status: Acute Assessment and Plan: ABG reveals respiratory acidosis with a pH is 7.229 -consistent with primary respiratory acidosis with possible metabolic acidosis. Anion gap is normal. Lactic acid normal -likely due to pneumonia -patient is a DNR and I cannot get a hold of any family for further direction. He is unable to answer any questions -will start BiPAP therapy and recheck an ABG in 2 hours -proceed with urgent thoracentesis since he is in respiratory failure (2) Acute respiratory failure with hypoxia and hypercapnia: Code(s): J96.01 - Acute respiratory failure with hypoxia; J96.02 - Acute respiratory failure with hypercapnia Status: Acute Assessment and Plan: Patient will be placed on BiPAP, please see above (3) PNA (pneumonia): Code(s): J18.9 - Pneumonia, unspecified organism Status: Acute Assessment and Plan: Patient was placed on Zosyn and vancomycin -thoracentesis ordered (4) Pleural effusion: Code(s): J90 - Pleural effusion, not elsewhere classified Status: Acute Assessment and Plan: As above (5) Atrial fibrillation: Code(s): I48.91 - Unspecified atrial fibrillation Status: Chronic Assessment and Plan: Patient is in atrial fibrillation -I am unsure if he has a history of this but when he was in the ER April this year it was noted -he is not on any rate controlling medications or anticoagulation -obtain stat EKG -troponins mildly elevated likely due to AFib with RVR and acute illness (6) Sacral ulcer: Code(s): L98.429 - Non-pressure chronic ulcer of back with unspecified severity Status: Acute Assessment and Plan: Patient was being treated at the shelter -will continue IV antibiotics as above -wound consult once the patient is more stable (7) BPH (benign prostatic hyperplasia): Code(s): N40.0 - Benign prostatic hyperplasia without lower urinary tract symptoms Status: Chronic Assessment and Plan: Verdugo catheter inserted (8) Dementia: Code(s): F03.90 - Unspecified dementia without behavioral disturbance Status: Chronic Assessment and Plan: Chronic (9) Seizure disorder: Code(s): G40.909 - Epilepsy, unspecified, not intractable, without status epilepticus Status: Chronic Assessment and Plan: Continue IV Keppra, increase to 750 BID (10) Anxiety: Code(s): F41.9 - Anxiety disorder, unspecified Status: Chronic (11) Chronic GERD: Code(s): K21.9 - Gastro-esophageal reflux disease without esophagitis Status: Chronic (12) HTN (hypertension), malignant: Code(s): I10 - Essential (primary) hypertension Status: Chronic Assessment and Plan: Patient is hypotensive this morning at 96/72 -recheck blood pressure (13) Acute kidney injury: Code(s): N17.9 - Acute kidney failure, unspecified Status: Acute Assessment and Plan: Patient's creatinine 2.9 today -unclear baseline as he has never had a BMP here -request records -he appears fluid overloaded, will hold on fluids at this time. He is receiving vancomycin and Keppra which has a good amount of fluids. -could be 3rd spacing, albumin is normal. (14) Acute metabolic encephalopathy: Code(s): G93.41 - Metabolic encephalopathy Status: Acute Assessment and Plan: Likely due to pneumonia -will order UA -cannot exclude seizure activity, continue Keppra. Check CK. Order EEG. -continue zosyn & Vanc -blood cultures pending Additional Plan 65 min of critical care time spent with this patient due to life threatening findings. Time Spent With Patient Time with patient: 25 - 35 minutes Subjective Date/time seen: 09/10/20 12:06 Interval h
[2020-09-10] MEDS: PANTOPRAZOLE SODIUM IV 40 MG VIAL IV PUSH ×2 (12:23→20:52)
--- NOTE | 2020-09-10 12:35 | ECG_ITS ---
Measurements Intervals [place] Rate: 117 P: [place]: 0 QRS: 2 QRSD: 98 T: 180 QT: 314 QTc: 439 Interpretive Statements ATRIAL FIBRILLATION WITH RAPID VENTRICULAR RESPONSE VENTRICULAR PREMATURE COMPLEX BORDERLINE R WAVE PROGRESSION, ANTERIOR LEADS BORDERLINE ST-T WAVE ABNORMALITY- INF/LAT LEADS ABNORMAL ECG Electronically Signed On 09-10-2020 13:23:51 CDT by Perez Nolen D.O.
[2020-09-10 13:28] LABS: Anion Gap 10 mmol/L (8-16); Blood Urea Nitrogen 76 mg/dL (9-20); Calcium 9.2 mg/dL (8.4-10.2); Carbon Dioxide 25 mmol/L (22-30); Chloride 109 mmol/L (98-107); Estimated CRCL calculation 16 ml/min; Estimated Glomerular Filt Rate 22; Glucose 116 mg/dL (75-110); Potassium 5.4 mmol/L (3.4-5.0); Sodium 144 mmol/L (137-145)
[2020-09-10 13:40] LABS: Creatine Kinase 130 U/L (55-170); Troponin I 0.069 ng/mL (0.000-0.034)
[2020-09-10 14:38] LABS: Alveolar/Arterial O2 Gradient 188.7 mmHg; Base Excess ABG -3.5 mEq/l (+/-2.0); Carboxyhemoglobin 0.5 % THb (0-2.0); Fractional Inspired Oxygen 60 %; HCO3 ABG 24.5 mEq/l (22.0-26.0); Methemoglobin ABG 0.2 %THb (0-1.5); Oxygen Content ABG 20.5 %vol (16.0-22.0); Oxyhemoglobin 98.1 % THb (90.0-100.0); PCO2 ABG 56.4 mmHg (35.0-45.0); PO2 ABG 177.1 mmHg (80.0-100.0); PO2 FiO2 Ratio Arterial Blood 2.95 %; Reduced Hemoglobin 1.2 %THb (0-5.0); Total Hemoglobin 14.6 g/dL (12.0-18.0)
[2020-09-10 14:40] LABS: Device NON-INVASIVE VENT; Modified Allen's Test Pass; Site Drawn LEFT RADIAL; pH ABG 7.256 (7.350-7.450)
[2020-09-10 14:41] LABS: Non-Invasive Expiratory Pressure 6 CMH2O; Non-Invasive Inspiratory Pressure 12 CMH2O; Non-Invasive Vent Rate 20 /MIN
[2020-09-10 16:20] LABS: pH Pleural Fluid 7.266 (7.210-7.500)
[2020-09-10 17:23] LABS: Troponin I 0.065 ng/mL (0.000-0.034)
[2020-09-10] MEDS: levETIRAcetam IV 750 MG in DEXTROSE 5% 100 ML 430 MG IVPB (20:52)
[2020-09-10] MEDS: FAMOTIDINE 20 MG/2 ML VIAL IV PUSH (20:52)
--- NOTE | 2020-09-10 23:22 | PC.NURSE ---
Called Angeli Renteria about patient being nonresponsive and respiratory status, lab work that was completed during the day and ECG. Orders are to give Ativan to help with if respiratory status. She is aware of patient status.
[2020-09-11] VITALS (19 sets, daily range): BP systolic 102–129; BP diastolic 79–88; PULSE 58–117; RESP 16–43; TEMP 35.5–36.6; O2SAT 91–96
[2020-09-11] MEDS: LORazepam INJ (*CRX) 2 MG/ML VIAL 0.5 MG IV PUSH (00:12)
[2020-09-11] MEDS: IPRATROPIUM BR 0.02% INH SOLN 0.5 MG/2.5 ML VIAL INHALATION ×4 (02:00→20:38)
[2020-09-11] MEDS: ALBUTEROL SULFATE NEB 2.5 MG/0.5 ML INH 5 MG INHALATION ×4 (02:01→20:38)
[2020-09-11 06:13] LABS: Basophils Absolute Auto 0.1 K/mm3 (0.0-0.1); Basophils Percent Auto 0.7 % (0.2-1.2); Eosinophils Percent Auto 0.4 % (0-4.4); Hematocrit 41.2 % (42.0-52.0); Hemoglobin 13.1 g/dL (14.0-18.0); Immature Granulocyte Absolute 0.03 K/mm3 (0.00-0.031); Immature Granulocyte Percent A 0.4 % (0-0.5); Lymphocytes Absolute Auto 0.53 K/mm3 (0.9-3.2); Mean Corpuscular HGB Conc 31.8 g/dl (32-36); Mean Corpuscular Volume 97.4 fl (80-100); Mean Platelet Volume 10.5 fl (7.4-10.4); Monocytes Absolute Auto 0.5 K/mm3 (0.1-0.6); Monocytes Percent Auto 6.7 % (2.6-8.5); Neutrophils Absolute Auto 6.5 K/mm3 (1.3-6.7); Neutrophils Percent Auto 84.8 % (45.5-73.1); Nucleated Red Blood Cells Perc 0.3 % (0.0-0.2); Platelet Count Result 197 k/mm3 (150-375); Red Blood Count 4.23 M/mm3 (4.6-6.20); Red Cell Distribution Width 14.6 % (11.5-14.5); White Blood Count 7.6 K/mm3 (4.5-10.0)
[2020-09-11 06:24] LABS: Alanine Aminotransferase 21 U/L (4-50); Albumin Level 3.4 g/dL (3.5-5.1); Alkaline Phosphatase 88 U/L (38-126); Anion Gap 10 mmol/L (8-16); Aspartate Amino Transferase 28 U/L (17-59); Bilirubin,Total 0.6 mg/dL (0.2-1.3); Blood Urea Nitrogen 85 mg/dL (9-20); CRP 5.4 mg/dL (<1.0); Calcium 9.2 mg/dL (8.4-10.2); Carbon Dioxide 23 mmol/L (22-30); Chloride 111 mmol/L (98-107); Estimated CRCL calculation 15 ml/min; Estimated Glomerular Filt Rate 19; Glucose 99 mg/dL (75-110); Magnesium 2.5 mg/dL (1.6-2.3); Potassium 4.2 mmol/L (3.4-5.0); Sodium 144 mmol/L (137-145)
[2020-09-11 08:24] LABS: Creatinine Urine 113.3 mg/dL
[2020-09-11 08:26] LABS: Sodium Urine Random 7 meq/L
[2020-09-11 08:32] LABS: Add Urine Microscopic? YES; Appearance Urine Cloudy (Clear); Bacteria Urine Trace /hpf; Bilirubin Urine Negative (Negative); Blood Urine 3+ (Negative); Color Urine Yellow (Yellow); Glucose Urine UA Negative (Negative); Ketones Urine Negative (Negative); Leukocyte Esterase Ur 2+ LEU/UL (Negative); Mucus Urine Rare /lpf; Nitrate Urine Negative (Negative); Protein Urine 1+ mg/dL (Negative); RBC Urine 51-75 /hpf (0-2); Specific Grav Ur 1.015 (1.001-1.035); Squamous Epithelial Cell Urine Occasional /hpf (Few); Urobilinogen Urine Negative mg/dL (<2.0); WBC Clumps Urine Present /HPF; WBC Urine 21-30 /hpf
[2020-09-11] MEDS: levETIRAcetam IV 750 MG in DEXTROSE 5% 100 ML 430 MG IVPB ×2 (09:24→22:32)
[2020-09-11] MEDS: SODIUM CHLORIDE 0.9% IV 1,000 ML 70 ML IV CONT (09:24)
[2020-09-11] MEDS: PANTOPRAZOLE SODIUM IV 40 MG VIAL IV PUSH ×2 (09:30→22:32)
--- NOTE | 2020-09-11 10:22 | PM.IMPN ---
Progress Note: A&P Assessment and Plan (1) Acute respiratory failure with hypoxia and hypercapnia: Code(s): J96.01 - Acute respiratory failure with hypoxia; J96.02 - Acute respiratory failure with hypercapnia Status: Acute Assessment and Plan: ABG reveals respiratory acidosis with a pH is 7.23 with pCO2 of 58 and a PO2 of 74 on 3 L. Serum bicarb was normal. Patient was started on BiPAP. Most likely primary respiratory acidosis with possible metabolic acidosis (less likely with normal Anion gap and Lactic acid). Resp failure related to PNA and large pleural effusion. Consider malignancy also. Patient is a DNR. COntinue supportive care. (2) Acute kidney injury: Code(s): N17.9 - Acute kidney failure, unspecified Status: Acute Assessment and Plan: Patient's creatinine 2.1 on admission but climbed quickly to 2.9. Creatinine this morning is 3.1. Renal ultrasound was negative. Unclear baseline but BUN elevated to suggest dehydration. Urine sodium is 7. Will start IV fluids. Monitor renal function. (3) Pleural effusion: Code(s): J90 - Pleural effusion, not elsewhere classified Status: Acute Assessment and Plan: Patient has a large left pleural effusion unclear etiology. Studies are pending. No cell count was ordered. No pathology was ordered which was added. Trying to contact family to discuss about repeat thoracentesis. If not able to contact, will proceed with a repeat thoracentesis later today. (4) PNA (pneumonia): Code(s): J18.9 - Pneumonia, unspecified organism Status: Acute Assessment and Plan: CT of the chest showing masslike consolidation right upper lobe near the apex as well as a large left and moderate right pleural effusion with atelectasis. There was a mediastinal shift to the right and adenopathy. Patient started on Zosyn and vancomycin. Thoracentesis has been done with minimal change on the repeat chest x-ray. Cultures thus far are no growth. Continue to monitor. (5) Acute metabolic encephalopathy: Code(s): G93.41 - Metabolic encephalopathy Status: Acute Assessment and Plan: Patient with underlying dementia. Patient is DNR and it is unclear if he is comfort measures. Having difficulty contacting family to clarify this. Staff have spoken to the half-way will also has stated that the family is difficult to contact. Patient alert today. Suspect patient with acute encephalopathy related to the pneumonia with chronic component with dementia. Related to seizure seems less likely. EEG has been ordered. Will follow. (6) Atrial fibrillation: Code(s): I48.91 - Unspecified atrial fibrillation Status: Chronic Assessment and Plan: Patient has chronic atrial fibrillation. Patient is not on any rate controlling medications or anticoagulation. EKG showing Atrial fibrillation with RVR. Occasionally elevated but would be more concerned that this is related to either dehydration and/or his large pleural effusion. Troponins are mildly elevated likely due to AFib with RVR and acute illness (7) Sacral ulcer: Code(s): L98.429 - Non-pressure chronic ulcer of back with unspecified severity Status: Acute Assessment and Plan: Present on admission. Patient was being treated at the half-way. Will continue IV antibiotics as above. Wound consult (8) BPH (benign prostatic hyperplasia): Code(s): N40.0 - Benign prostatic hyperplasia without lower urinary tract symptoms Status: Chronic Assessment and Plan: Patient on Flomax chronically. Verdugo catheter has been inserted. Continue to hold Flomax for now. (9) Dementia: Code(s): F03.90 - Unspecified dementia without behavioral disturbance Status: Chronic Assessment and Plan: Patient with chronic dementia. His Namenda and Aricept on hold. Resume when able. (10) Seizure disorder:
[2020-09-11 11:50] LABS: Alveolar/Arterial O2 Gradient 219.7 mmHg; Base Excess ABG -3.3 mEq/l (+/-2.0); Fractional Inspired Oxygen 50 %; HCO3 ABG 21.6 mEq/l (22.0-26.0); Oxygen Content ABG 18.9 %vol (16.0-22.0); Oxyhemoglobin 95.7 % THb (90.0-100.0); PCO2 ABG 38.4 mmHg (35.0-45.0); PO2 ABG 93.6 mmHg (80.0-100.0); PO2 FiO2 Ratio Arterial Blood 1.87 %; pH ABG 7.367 (7.350-7.450)
[2020-09-11 11:52] LABS: Device NON-INVASIVE VENT; Site Drawn RIGHT BRACHIAL
[2020-09-11 11:53] LABS: Non-Invasive Expiratory Pressure 6 CMH2O; Non-Invasive Inspiratory Pressure 12 CMH2O; Non-Invasive Vent Rate 20 /MIN
[2020-09-12] VITALS (20 sets, daily range): BP systolic 118–140; BP diastolic 72–89; PULSE 53–120; RESP 10–25; TEMP 36.3–36.5; O2SAT 91–100
[2020-09-12] MEDS: IPRATROPIUM BR 0.02% INH SOLN 0.5 MG/2.5 ML VIAL INHALATION ×4 (01:54→21:31)
[2020-09-12] MEDS: ALBUTEROL SULFATE NEB 2.5 MG/0.5 ML INH 5 MG INHALATION ×4 (01:54→21:31)
[2020-09-12 06:20] LABS: Basophils Absolute Auto 0.1 K/mm3 (0.0-0.1); Basophils Percent Auto 0.6 % (0.2-1.2); Eosinophils Absolute Auto 0.1 K/mm3 (0-0.3); Eosinophils Percent Auto 0.7 % (0-4.4); Hematocrit 46.4 % (42.0-52.0); Hemoglobin 14.1 g/dL (14.0-18.0); Immature Granulocyte Absolute 0.03 K/mm3 (0.00-0.031); Immature Granulocyte Percent A 0.4 % (0-0.5); Lymphocytes Absolute Auto 0.53 K/mm3 (0.9-3.2); Lymphocytes Percent Auto 6.3 % (18.3-44.2); Mean Corpuscular HGB Conc 30.4 g/dl (32-36); Monocytes Absolute Auto 0.6 K/mm3 (0.1-0.6); Monocytes Percent Auto 7.5 % (2.6-8.5); Neutrophils Absolute Auto 7.2 K/mm3 (1.3-6.7); Neutrophils Percent Auto 84.5 % (45.5-73.1); Platelet Count Result 189 k/mm3 (150-375); Red Blood Count 4.55 M/mm3 (4.6-6.20); Red Cell Distribution Width 14.9 % (11.5-14.5); White Blood Count 8.5 K/mm3 (4.5-10.0)
[2020-09-12 06:29] LABS: Alanine Aminotransferase 21 U/L (4-50); Albumin Level 3.5 g/dL (3.5-5.1); Alkaline Phosphatase 82 U/L (38-126); Anion Gap 10 mmol/L (8-16); Aspartate Amino Transferase 30 U/L (17-59); Bilirubin,Total 0.8 mg/dL (0.2-1.3); Blood Urea Nitrogen 86 mg/dL (9-20); Calcium 9.1 mg/dL (8.4-10.2); Carbon Dioxide 22 mmol/L (22-30); Chloride 113 mmol/L (98-107); Estimated CRCL calculation 14 ml/min; Estimated Glomerular Filt Rate 19; Glucose 94 mg/dL (75-110); Magnesium 2.7 mg/dL (1.6-2.3); Phosphorus 4.7 mg/dL (2.5-4.5); Potassium 4.4 mmol/L (3.4-5.0); Sodium 145 mmol/L (137-145)
[2020-09-12] MEDS: levETIRAcetam IV 750 MG in DEXTROSE 5% 100 ML 430 MG IVPB ×2 (08:26→20:48)
[2020-09-12] MEDS: SODIUM CHLORIDE 0.9% IV 1,000 ML 70 ML IV CONT ×2 (08:26→20:50)
[2020-09-12] MEDS: PANTOPRAZOLE SODIUM IV 40 MG VIAL IV PUSH ×2 (08:26→20:49)
--- NOTE | 2020-09-12 09:17 | PM.IMPN ---
Progress Note: A&P Assessment and Plan (1) Acute respiratory failure with hypoxia and hypercapnia: Code(s): J96.01 - Acute respiratory failure with hypoxia; J96.02 - Acute respiratory failure with hypercapnia Status: Acute Assessment and Plan: ABG reveals respiratory acidosis with a pH is 7.23 with pCO2 of 58 and a PO2 of 74 on 3 L. Serum bicarb was normal. Patient was started on BiPAP. Most likely primary respiratory acidosis with possible metabolic acidosis (less likely with normal Anion gap and Lactic acid). Resp failure related to PNA and large pleural effusion. Consider lung malignancy also. Patient is a DNR. Wean off BiPAP today. Repeat thoracentesis. Continue supportive care. (2) Acute kidney injury: Code(s): N17.9 - Acute kidney failure, unspecified Status: Acute Assessment and Plan: Patient's creatinine 2.1 on admission but climbed quickly to 2.9. Creatinine this morning is 3.2. Renal ultrasound was negative. UOP 600mL overnight. Unclear baseline. Urine sodium is 7 to suggest dehydration but no improvement with IV fluids. Probably ATN from the HoTN/infection/resp failure. Will monitor renal function. (3) Pleural effusion: Code(s): J90 - Pleural effusion, not elsewhere classified Status: Acute Assessment and Plan: Patient has a large left pleural effusion unclear etiology. Studies are pending. No cell count or cultures were ordered. Pathology was added. Tried to contact family yesterday and again today to discuss about repeat thoracentesis but not able to contact. Will proceed with a repeat thoracentesis today. No RBC/WBC but 51% PMNs and 42% lymph. pH 7.29. Gram stain negative for MO. 1L removed of cloudy yellow fluid. CXR still showing large pleural effusion. No hip fracture noted. (4) PNA (pneumonia): Code(s): J18.9 - Pneumonia, unspecified organism Status: Acute Assessment and Plan: CT of the chest showing masslike consolidation right upper lobe near the apex as well as a large left and moderate right pleural effusion with atelectasis. There was a mediastinal shift to the right and adenopathy. Patient started on Zosyn and vancomycin. Thoracentesis has been done with minimal change on the repeat chest x-ray. Cultures thus far are no growth. Continue to monitor. (5) Acute metabolic encephalopathy: Code(s): G93.41 - Metabolic encephalopathy Status: Acute Assessment and Plan: Patient with underlying dementia. Patient is DNR and it is unclear if he is comfort measures. Having difficulty contacting family to clarify this. Staff have spoken to the correction who also has stated that the family is difficult to contact. Patient alert today. Suspect patient with acute encephalopathy related to the pneumonia with chronic component with dementia. Related to seizure seems less likely. EEG result pending. ST to assess swallow ability. Hopefully be able to feed today. (6) Atrial fibrillation: Code(s): I48.91 - Unspecified atrial fibrillation Status: Chronic Assessment and Plan: Patient has chronic atrial fibrillation. Patient is not on any rate controlling medications or anticoagulation. EKG showing Atrial fibrillation with RVR. Occasionally elevated but would be more concerned that this is related to either dehydration and/or his large pleural effusion. Troponins are mildly elevated likely due to AFib with RVR and acute illness (7) Sacral ulcer: Code(s): L98.429 - Non-pressure chronic ulcer of back with unspecified severity Status: Acute Assessment and Plan: Present on admission. Patient was being treated at the correction. Will continue IV antibiotics as above. Wound consult (8) BPH (benign prostatic hyperplasia): Code(s): N40.0 - Benign prostatic hyperplasia without lower urinary tract symptoms Status: Chronic Assessment and Pl
--- NOTE | 2020-09-12 09:59 | WPDNEUROLOGY ---
Neurology EEG Report General Information Date of Study: 09/11/20 TEST eeg DIAGNOSIS altered mental status CONDITION OF RECORDING awake EEG NUMBER [id number] CLINICAL HISTORY Patient confused and unable to give any particular history. Eye movements and electrode artifacts were noted throughout the whole tracing EEG DESCRIPTION background rhythm consists of 5 to 7 hertz per 2nd low to medium voltage theta admixed with 2 to 3 hertz per 2nd low to medium voltage delta and superimposed by low-voltage beta activity. hyperventilation not done photic .stimulation not done. Non paroxysmal. Nonfocal. Nonlateralizing. IMPRESSION Abnormal record due to the presence of bihemispheric theta and delta activity without evidence of any paroxysmal discharge. These abnormalities could be consistent with the diagnosis of organic or metabolic encephalopathy or the postictal state. Clinical correlation recommended.
--- NOTE | 2020-09-12 13:17 | PCSTNOTE ---
THIS PATIENT WILL NOT BE SEEN FOR A MODIFIED BARIUM SWALLOW STUDY THIS AFTERNOON DUE TO HAVING THORASCENTESIS PROCEDURE THIS AFTERNOON AND SCHEDULING DRAWING KILN OPERATOR INDICATED THAT IT WOULD NOT BE APPROPRIATE TO COMPLETE THE MBS FOLLOWING THIS PROCEDURE.
[2020-09-12 13:37] LABS: pH Pleural Fluid 7.289 (7.210-7.500)
--- NOTE | 2020-09-12 14:35 | PCWOUND ---
WOCN NOTE asked to assess patients sacrum as he has had a previous ulcer to the area. Upon assessment, no open wounds present, scar tissue noted to left side of sacrum. No wound care needed.
[2020-09-12 14:54] LABS: Pleural fluid source Pleural fluid
[2020-09-12 14:56] LABS: Appearance Pleural Fluid Cloudy (Clear); Color Pleural Fluid Yellow (Colorless)
[2020-09-12 14:57] LABS: Lymphocytes Pleural Fluid 42 %; Monocytes Pleural Fluid 4 %; Neutrophils Pleural Fluid 51 % (0-25)
[2020-09-12 14:58] LABS: Other Cells Pleural Fluid 3 %
[2020-09-13] VITALS (14 sets, daily range): BP systolic 98–138; BP diastolic 71–82; PULSE 61–113; RESP 12–27; TEMP 36.2–36.5; O2SAT 93–100; BMI 29.3
[2020-09-13 00:48] LABS: Albumin Pleural Fluid 2.7 g/dL
[2020-09-13] MEDS: IPRATROPIUM BR 0.02% INH SOLN 0.5 MG/2.5 ML VIAL INHALATION ×4 (02:39→20:44)
[2020-09-13] MEDS: ALBUTEROL SULFATE NEB 2.5 MG/0.5 ML INH 5 MG INHALATION ×4 (02:40→20:44)
[2020-09-13 06:29] LABS: Hematocrit 42.8 % (42.0-52.0); Hemoglobin 13.7 g/dL (14.0-18.0); Mean Corpuscular Volume 96.8 fl (80-100); Platelet Count Result 187 k/mm3 (150-375); Red Blood Count 4.42 M/mm3 (4.6-6.20); Red Cell Distribution Width 14.8 % (11.5-14.5); White Blood Count 7.8 K/mm3 (4.5-10.0)
[2020-09-13 06:52] LABS: Albumin Level 3.5 g/dL (3.5-5.1); Anion Gap 9 mmol/L (8-16); Blood Urea Nitrogen 77 mg/dL (9-20); Calcium 8.7 mg/dL (8.4-10.2); Carbon Dioxide 25 mmol/L (22-30); Chloride 115 mmol/L (98-107); Estimated CRCL calculation 17 ml/min; Estimated Glomerular Filt Rate 24; Glucose 94 mg/dL (75-110); Magnesium 2.5 mg/dL (1.6-2.3); Phosphorus 3.8 mg/dL (2.5-4.5); Potassium 4.6 mmol/L (3.4-5.0); Sodium 149 mmol/L (137-145)
[2020-09-13] MEDS: levETIRAcetam IV 750 MG in DEXTROSE 5% 100 ML 430 MG IVPB ×2 (09:42→21:44)
[2020-09-13] MEDS: PANTOPRAZOLE SODIUM IV 40 MG VIAL IV PUSH ×2 (09:42→21:45)
[2020-09-13] MEDS: SILVERGEL (ELTA) 45 ML 1 APPLIC TOPICAL (09:43)
--- NOTE | 2020-09-13 09:50 | PM.IMPN ---
Progress Note: A&P Assessment and Plan (1) Acute respiratory failure with hypoxia and hypercapnia: Code(s): J96.01 - Acute respiratory failure with hypoxia; J96.02 - Acute respiratory failure with hypercapnia Status: Acute Assessment and Plan: ABG reveals respiratory acidosis with a pH is 7.23 with pCO2 of 58 and a PO2 of 74 on 3 L. Serum bicarb was normal. Patient was started on BiPAP. Most likely primary respiratory acidosis with possible metabolic acidosis (less likely with normal Anion gap and Lactic acid). Resp failure related to PNA and large pleural effusion. Consider lung malignancy also. Patient is a DNR. Weaned off BiPAP during the day but continue at night. Repeat thoracentesis. Continue supportive care. Spoke with family finally. Updated family about hospital course. Patient remains a DNR. (2) Acute kidney injury: Code(s): N17.9 - Acute kidney failure, unspecified Status: Acute Assessment and Plan: Patient's creatinine 2.1 on admission but climbed quickly to 3.2. With IV fluids, creatinine this morning is 2.6. Renal ultrasound was negative. Unclear on baseline Cr. Urine sodium is 7 to suggest dehydration. Probably ATN from the HoTN/infection/resp failure. Will continue to monitor renal function. (3) Pleural effusion: Code(s): J90 - Pleural effusion, not elsewhere classified Status: Acute Assessment and Plan: Patient has a large left pleural effusion unclear etiology. Underwent thoracentesis 09/10 with 1L removed. Most studies are pending. No cell count or cultures were ordered. Pathology was added. 2nd thoracentesis 09/12 with removal of 1L; No RBC/WBC but 51% PMNs and 42% lymph. pH 7.29. Gram stain negative for MO. CXR still showing large pleural effusion. Path showing atypical cells with further testing in process. Tried to contact family 09/11, 09/12 and again today to discuss about repeat thoracentesis but not able to contact. Will repeat thoracentesis. (4) PNA (pneumonia): Code(s): J18.9 - Pneumonia, unspecified organism Status: Acute Assessment and Plan: CT of the chest showing masslike consolidation right upper lobe near the apex as well as a large left and moderate right pleural effusion with atelectasis. There was a mediastinal shift to the right and adenopathy. Patient started on Zosyn and vancomycin. Thoracentesis has been done with minimal change on the repeat chest x-ray. Cultures thus far are no growth. Continue to monitor. (5) Acute metabolic encephalopathy: Code(s): G93.41 - Metabolic encephalopathy Status: Acute Assessment and Plan: Patient with underlying dementia. Patient is DNR and it is unclear if he is comfort measures. Having difficulty contacting family to clarify this. Staff have spoken to the alf who also has stated that the family is difficult to contact. Patient more alert and oriented today. Suspect patient with acute encephalopathy related to the pneumonia with chronic component with dementia. Related to seizure seems less likely. MBS ordered for today and results from ST pending. (6) Atrial fibrillation: Code(s): I48.91 - Unspecified atrial fibrillation Status: Chronic Assessment and Plan: Patient has chronic atrial fibrillation. Patient is not on any rate controlling medications or anticoagulation. EKG showing Atrial fibrillation with RVR. Occasionally elevated HR but felt related to either dehydration and/or his large pleural effusion. Troponins are mildly elevated likely due to AFib with RVR and acute illness. Okay to stop tele since rate better (7) Sacral ulcer: Code(s): L98.429 - Non-pressure chronic ulcer of back with unspecified severity Status: Acute Assessment and Plan: Present on admission. Patient was being treated at the alf. Wound RN evaluated the patient ans stated the sacral ulcer has h
--- NOTE | 2020-09-13 10:37 | PCSTNOTE ---
Please refer to the Modified Barium Swallow Evaluation in the EMR.
--- NOTE | 2020-09-13 12:30 | PC.NURSE ---
Dr. Pope aware of pleural fluid cultures. Nothing new resulted 09/13/2020.
--- NOTE | 2020-09-13 13:12 | PCNSR ---
On 09/13/20, the student,Magaly Estrada, provided care and completed [facility] documentation on this patient. I have reviewed the student's documentation and agree with the findings.
--- NOTE | 2020-09-13 13:12 | PC.NURSE ---
Spoke with Marychuy Sister of patient today. She gave a contact phone number of [phone]. Informed Dr Pope and Care Coordination of contact and provided above telephone number.
[2020-09-13] MEDS: ASPIRIN 81 MG CHEWABLE TABLET PO (14:55)
[2020-09-13] MEDS: DEXTROSE 5%/0.45% SOD CHL 1,000 ML 70 ML IV CONT (18:15)
[2020-09-13 19:33] LABS: Glucose Pleural Fluid 110 mg/dL; LDH Pleural Fluid 341 U/L; Total Protein Pleural Fluid 4.6 g/dL
[2020-09-13] MEDS: ACETAMINOPHEN 325 MG TABLET 650 MG PO (22:03)
[2020-09-14] VITALS (20 sets, daily range): BP systolic 115–137; BP diastolic 77–94; PULSE 24–125; RESP 12–108; TEMP 35.6–36.9; O2SAT 90–98
[2020-09-14] MEDS: IPRATROPIUM BR 0.02% INH SOLN 0.5 MG/2.5 ML VIAL INHALATION ×4 (01:47→20:53)
[2020-09-14] MEDS: ALBUTEROL SULFATE NEB 2.5 MG/0.5 ML INH 5 MG INHALATION ×4 (01:47→20:53)
[2020-09-14 09:03] LABS: Anion Gap 12 mmol/L (8-16); Blood Urea Nitrogen 61 mg/dL (9-20); Calcium 8.7 mg/dL (8.4-10.2); Carbon Dioxide 21 mmol/L (22-30); Chloride 116 mmol/L (98-107); Estimated CRCL calculation 22 ml/min; Estimated Glomerular Filt Rate 30; Glucose 100 mg/dL (75-110); Potassium 3.5 mmol/L (3.4-5.0); Sodium 149 mmol/L (137-145)
[2020-09-14] MEDS: ASPIRIN 81 MG CHEWABLE TABLET PO (09:20)
[2020-09-14] MEDS: levETIRAcetam IV 750 MG in DEXTROSE 5% 100 ML 430 MG IVPB (09:20)
[2020-09-14] MEDS: SILVERGEL (ELTA) 45 ML 1 APPLIC TOPICAL (09:21)
[2020-09-14] MEDS: PANTOPRAZOLE SODIUM IV 40 MG VIAL IV PUSH ×2 (09:21→20:16)
--- NOTE | 2020-09-14 09:35 | PM.IMPN ---
Progress Note: A&P Assessment and Plan (1) Acute respiratory failure with hypoxia and hypercapnia: Code(s): J96.01 - Acute respiratory failure with hypoxia; J96.02 - Acute respiratory failure with hypercapnia Status: Acute Assessment and Plan: ABG reveals respiratory acidosis with a pH is 7.23 with pCO2 of 58 and a PO2 of 74 on 3 L. Serum bicarb was normal. Patient was started on BiPAP. Most likely primary respiratory acidosis with possible metabolic acidosis (less likely with normal Anion gap and Lactic acid). Resp failure related to PNA and large pleural effusion. Consider lung malignancy also. Patient is a DNR. Weaned off BiPAP during the day but continue at night. Repeat thoracentesis. Continue supportive care. (2) Acute kidney injury: Code(s): N17.9 - Acute kidney failure, unspecified Status: Acute Assessment and Plan: Patient's creatinine 2.1 on admission but climbed quickly to 3.2. With IV fluids, creatinine this morning is back to baseline 2.1. Renal ultrasound was negative. Unclear on baseline Cr. Urine sodium is 7 to suggest dehydration. Probably ATN from the HoTN/infection/resp failure. Will continue to monitor renal function. Continue IV fluids one more day. (3) Pleural effusion: Code(s): J90 - Pleural effusion, not elsewhere classified Status: Acute Assessment and Plan: Patient has a large left pleural effusion unclear etiology. Underwent thoracentesis 09/10 with 1L removed. Pathology was added. 2nd thoracentesis 09/12 with removal of 1L; No RBC/WBC total but 51% PMNs and 42% lymph. pH 7.29. Gram stain negative for MO. CXR still showing large pleural effusion. Path showing atypical cells with further testing in process. Appears to be Exudative by Light criteria and Pl Chol>55. Third thoracentesis performed 09/13 with 1L removed but persistent white out. Repeat thoracentesis again today. Follow up on pathology report (4) PNA (pneumonia): Code(s): J18.9 - Pneumonia, unspecified organism Status: Acute Assessment and Plan: CT of the chest showing masslike consolidation right upper lobe near the apex as well as a large left and moderate right pleural effusion with atelectasis. There was a mediastinal shift to the right and adenopathy. Patient started on Zosyn and vancomycin. Multiple thoracentesis have been done with minimal change on the repeat chest x-rays. Cultures thus far are no growth. Continue to monitor. (5) Acute metabolic encephalopathy: Code(s): G93.41 - Metabolic encephalopathy Status: Acute Assessment and Plan: Patient with underlying dementia. Patient is DNR. He is not comfort measures pe dtr. Was having difficulty contacting family and were finally able to discuss patient's care with family yesterdy. Staff have spoken to the residential who also has stated that the family is difficult to contact. Patient more alert and orientedoverall. Suspect patient with acute encephalopathy related to the pneumonia with chronic component with dementia. Related to seizure seems less likely. (6) Atrial fibrillation: Code(s): I48.91 - Unspecified atrial fibrillation Status: Chronic Assessment and Plan: Patient has chronic atrial fibrillation. Patient is not on any rate controlling medications or anticoagulation. EKG showing Atrial fibrillation with RVR. Occasionally elevated HR but felt related to either dehydration and/or his large pleural effusion. Troponins are mildly elevated likely due to AFib with RVR and acute illness. HR better with re-hydration. (7) BPH (benign prostatic hyperplasia): Code(s): N40.0 - Benign prostatic hyperplasia without lower urinary tract symptoms Status: Chronic Assessment and Plan: Patient on Flomax chronically. Verdugo catheter has been inserted. Resume Flomax (8) Dementia: Code(s): F03.90 - Unspecified dementia wi
[2020-09-14 10:07] LABS: Vancomycin Trough 10.5 ug/mL (10.0-20.0)
--- NOTE | 2020-09-14 10:42 | PCNFU ---
Nutrition Follow-Up Complete: Nutrition Diagnosis: Swallowing difficulties related to dyspnea and dementia as evidenced by a modified diet and inability to consume solid foods. Nutrition Goal: Have patient meet estimated nutritional needs. Goal is in progress, patient is only consuming 5-25% of his meals. Nutrition recommendation: Continue with Regular, Moderately Thick, Pureed Diet Level 4 and Ensure Enlive (350 calories and 20 grams of protein) supplement BID. Last recorded weight is 85 kg. Recommend obtaining new weight. Bowel Motility: Last documented on 09/14. Labs Reviewed: Hgb(13.7), Na(149), GFR(24), BUN(61), Cr(2.6) Meds Noted: Albuterol, Atrovent, Protonix, Zosyn 2.25gm, Aricept, Levetiracetam, Memantine, Flomax, Vancomycin HCl 1250mg Additional Notes: Unstageable pressure ulcer bilateral ankles. Agree with diet orders. Will follow up in 3 days.
[2020-09-14] MEDS: MEMANTINE HCL XR 28 MG CAP PO ×2 (10:44→20:16)
[2020-09-14] MEDS: DONEPEZIL HCL 10 MG TABLET PO ×2 (10:44→20:16)
[2020-09-14] MEDS: ACETAMINOPHEN 325 MG TABLET 650 MG PO (10:45)
--- NOTE | 2020-09-14 11:59 | PCNSR ---
On 09/14/20, the student,Magaly Estrada, provided care and completed [facility] documentation on this patient. I have reviewed the student's documentation and agree with the findings.
[2020-09-14] MEDS: levETIRAcetam 250 MG TABLET PO (17:05)
[2020-09-14] MEDS: levETIRAcetam 500 MG TABLET PO (17:05)
[2020-09-14] MEDS: DEXTROSE 5%/0.45% SOD CHL 1,000 ML 70 ML IV CONT (17:10)
[2020-09-14] MEDS: TAMSULOSIN HCL 0.4 MG CAPSULE PO (20:16)
[2020-09-15] VITALS (15 sets, daily range): BP systolic 109–136; BP diastolic 77–81; PULSE 69–778; RESP 18–28; TEMP 36.4–36.6; O2SAT 92–100
[2020-09-15] MEDS: IPRATROPIUM BR 0.02% INH SOLN 0.5 MG/2.5 ML VIAL INHALATION ×4 (02:51→21:38)
[2020-09-15] MEDS: ALBUTEROL SULFATE NEB 2.5 MG/0.5 ML INH 5 MG INHALATION ×4 (02:51→21:38)
[2020-09-15] MEDS: DEXTROSE 5%/0.45% SOD CHL 1,000 ML 70 ML IV CONT (05:39)
[2020-09-15 06:35] LABS: Hematocrit 42.3 % (42.0-52.0); Hemoglobin 13.5 g/dL (14.0-18.0); Mean Corpuscular HGB Conc 31.9 g/dl (32-36); Mean Corpuscular Volume 97.2 fl (80-100); Mean Platelet Volume 10.5 fl (7.4-10.4); Platelet Count Result 192 k/mm3 (150-375); Red Blood Count 4.35 M/mm3 (4.6-6.20); Red Cell Distribution Width 15.2 % (11.5-14.5); White Blood Count 8.1 K/mm3 (4.5-10.0)
[2020-09-15 06:51] LABS: Albumin Level 3.3 g/dL (3.5-5.1); Anion Gap 7 mmol/L (8-16); Blood Urea Nitrogen 49 mg/dL (9-20); Calcium 8.4 mg/dL (8.4-10.2); Carbon Dioxide 27 mmol/L (22-30); Chloride 114 mmol/L (98-107); Estimated CRCL calculation 24 ml/min; Estimated Glomerular Filt Rate 34; Glucose 129 mg/dL (75-110); Magnesium 2.3 mg/dL (1.6-2.3); Potassium 3.3 mmol/L (3.4-5.0); Sodium 148 mmol/L (137-145)
[2020-09-15] MEDS: ACETAMINOPHEN 325 MG TABLET 650 MG PO (07:36)
[2020-09-15] MEDS: levETIRAcetam 250 MG TABLET PO ×2 (08:18→17:29)
[2020-09-15] MEDS: levETIRAcetam 500 MG TABLET PO ×2 (08:18→17:30)
[2020-09-15] MEDS: ASPIRIN 81 MG CHEWABLE TABLET PO (08:18)
[2020-09-15] MEDS: POTASSIUM CHLORIDE 20 MEQ PACKET (FOR LIQUID) PO (08:18)
[2020-09-15] MEDS: SILVERGEL (ELTA) 45 ML 1 APPLIC TOPICAL (08:19)
[2020-09-15] MEDS: PANTOPRAZOLE SODIUM IV 40 MG VIAL IV PUSH ×2 (08:26→21:36)
--- NOTE | 2020-09-15 12:09 | PM.IMPN ---
Progress Note: A&P Assessment and Plan (1) Acute respiratory failure with hypoxia and hypercapnia: Code(s): J96.01 - Acute respiratory failure with hypoxia; J96.02 - Acute respiratory failure with hypercapnia Status: Acute Assessment and Plan: ABG revealed respiratory acidosis with a pH is 7.23 with pCO2 of 58 and a PO2 of 74 on 3 L. Serum bicarb was normal. Patient was started on BiPAP. Most likely primary respiratory acidosis with possible metabolic acidosis (less likely with normal Anion gap and Lactic acid). Resp failure related to PNA and large pleural effusion. Consider lung malignancy also. Patient is a DNR. Weaned off BiPAP during the day but continue at night. Repeat thoracentesis 09/14. Continue supportive care. (2) Acute kidney injury: Code(s): N17.9 - Acute kidney failure, unspecified Status: Acute Assessment and Plan: Patient's creatinine 2.1 on admission but climbed quickly to 3.2. With IV fluids, creatinine this morning is back to baseline 2.1. Renal ultrasound was negative. Unclear on baseline Cr. Urine sodium is 7 to suggest dehydration. Probably ATN from the HoTN/infection/resp failure. Creatinine 1.9. D/c IVF. (3) Pleural effusion: Code(s): J90 - Pleural effusion, not elsewhere classified Status: Acute Assessment and Plan: Patient has a large left pleural effusion unclear etiology. Underwent thoracentesis 09/10 with 1L removed. Pathology was added. 2nd thoracentesis 09/12 with removal of 1L; No RBC/WBC total but 51% PMNs and 42% lymph. pH 7.29. Gram stain negative for MO. CXR still showing large pleural effusion. Path showing atypical cells with further testing in process. Appears to be Exudative by Light criteria and Pl Chol>55. Third thoracentesis performed 09/13 with 1L removed but persistent white out. Repeat thoracentesis again 09/14. Follow up on pathology report (Atypical cells from first two, 09/14 results pending). (4) PNA (pneumonia): Code(s): J18.9 - Pneumonia, unspecified organism Status: Acute Assessment and Plan: CT of the chest showing masslike consolidation right upper lobe near the apex as well as a large left and moderate right pleural effusion with atelectasis. There was a mediastinal shift to the right and adenopathy. Patient started on Zosyn and vancomycin. Multiple thoracentesis have been done with minimal change on the repeat chest x-rays. Cultures thus far are no growth. Continue to monitor. (5) Acute metabolic encephalopathy: Code(s): G93.41 - Metabolic encephalopathy Status: Acute Assessment and Plan: Patient with underlying dementia. Patient is DNR. He is not comfort measures pe dtr. Was having difficulty contacting family and were finally able to discuss patient's care with family yesterdy. Staff have spoken to the jail who also has stated that the family is difficult to contact. Patient more alert and orientedoverall. Suspect patient with acute encephalopathy related to the pneumonia with chronic component with dementia. Related to seizure seems less likely. (6) Atrial fibrillation: Code(s): I48.91 - Unspecified atrial fibrillation Status: Chronic Assessment and Plan: Patient has chronic atrial fibrillation. Patient is not on any rate controlling medications or anticoagulation. EKG showing Atrial fibrillation with RVR. Occasionally elevated HR but felt related to either dehydration and/or his large pleural effusion. Troponins are mildly elevated likely due to AFib with RVR and acute illness. HR better with re-hydration. (7) BPH (benign prostatic hyperplasia): Code(s): N40.0 - Benign prostatic hyperplasia without lower urinary tract symptoms Status: Chronic Assessment and Plan: Patient on Flomax chronically. Verdugo catheter has been inserted. Resume Flomax (8) Dementia: Code(s): F03.90 - Unspecified
[2020-09-15 14:52] LABS: Amylase, Pleural Fluid 36 U/L
[2020-09-15] MEDS: DONEPEZIL HCL 10 MG TABLET PO (21:31)
[2020-09-15] MEDS: MEMANTINE HCL XR 28 MG CAP PO (21:31)
[2020-09-15] MEDS: TAMSULOSIN HCL 0.4 MG CAPSULE PO (21:37)
[2020-09-16] VITALS (13 sets, daily range): BP systolic 108–129; BP diastolic 71–86; PULSE 59–88; RESP 14–26; TEMP 36.6–37.1; O2SAT 91–100
[2020-09-16] MEDS: IPRATROPIUM BR 0.02% INH SOLN 0.5 MG/2.5 ML VIAL INHALATION ×3 (03:03→20:12)
[2020-09-16] MEDS: ALBUTEROL SULFATE NEB 2.5 MG/0.5 ML INH 5 MG INHALATION ×3 (03:03→20:12)
[2020-09-16 07:40] LABS: Albumin Level 3.1 g/dL (3.5-5.1); Anion Gap 12 mmol/L (8-16); Blood Urea Nitrogen 47 mg/dL (9-20); Calcium 8.5 mg/dL (8.4-10.2); Carbon Dioxide 21 mmol/L (22-30); Chloride 114 mmol/L (98-107); Estimated CRCL calculation 26 ml/min; Estimated Glomerular Filt Rate 38; Glucose 111 mg/dL (75-110); Phosphorus 2.6 mg/dL (2.5-4.5); Potassium 3.8 mmol/L (3.4-5.0); Sodium 147 mmol/L (137-145)
[2020-09-16] MEDS: levETIRAcetam 250 MG TABLET PO ×2 (09:13→17:49)
[2020-09-16] MEDS: levETIRAcetam 500 MG TABLET PO ×2 (09:13→17:48)
[2020-09-16] MEDS: SILVERGEL (ELTA) 45 ML 1 APPLIC TOPICAL (09:14)
[2020-09-16] MEDS: PANTOPRAZOLE SODIUM IV 40 MG VIAL IV PUSH ×2 (09:14→20:36)
[2020-09-16] MEDS: ASPIRIN 81 MG CHEWABLE TABLET PO (09:14)
--- NOTE | 2020-09-16 10:28 | PCRCNOTE ---
Window of time for administration has passed. See next scheduled administration.
--- NOTE | 2020-09-16 11:33 | PM.IMPN ---
Progress Note: A&P Assessment and Plan (1) Acute respiratory failure with hypoxia and hypercapnia: Code(s): J96.01 - Acute respiratory failure with hypoxia; J96.02 - Acute respiratory failure with hypercapnia Status: Acute Assessment and Plan: ABG revealed respiratory acidosis with a pH is 7.23 with pCO2 of 58 and a PO2 of 74 on 3 L. Serum bicarb was normal. Patient was started on BiPAP. Most likely primary respiratory acidosis with possible metabolic acidosis (less likely with normal Anion gap and Lactic acid). Resp failure related to PNA and large pleural effusion. Consider lung malignancy also. Patient is a DNR. Weaned off BiPAP during the day but continue at night. Repeated thoracentesis 09/14. Continue supportive care. (2) Acute kidney injury: Code(s): N17.9 - Acute kidney failure, unspecified Status: Acute Assessment and Plan: Patient's creatinine 2.1 on admission but climbed quickly to 3.2. With IV fluids, creatinine this morning is back to baseline 2.1. Renal ultrasound was negative. Unclear on baseline Cr. Urine sodium is 7 to suggest dehydration. Probably ATN from the HoTN/infection/resp failure. 09/15 Creatinine 1.9 -> D/c IVF. 09/16 creatinine 1.7. (3) Pleural effusion: Code(s): J90 - Pleural effusion, not elsewhere classified Status: Acute Assessment and Plan: Patient has a large left pleural effusion unclear etiology. Underwent thoracentesis 09/10 with 1L removed. Pathology was added. 2nd thoracentesis 09/12 with removal of 1L; No RBC/WBC total but 51% PMNs and 42% lymph. pH 7.29. Gram stain negative for MO. CXR still showing large pleural effusion. Path showing atypical cells with further testing in process. Appears to be Exudative by Light criteria and Pl Chol>55. Third thoracentesis performed 09/13 with 1L removed but persistent white out. Repeat thoracentesis again 09/14. Follow up on pathology report (Atypical cells from first two, 09/14 results pending). 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 With a PPS 30 in this elderly gentleman with dementia, the prognosis is very poor. (4) PNA (pneumonia): Code(s): J18.9 - Pneumonia, unspecified organism Status: Acute Assessment and Plan: CT of the chest showing masslike consolidation right upper lobe near the apex as well as a large left and moderate right pleural effusion with atelectasis. There was a mediastinal shift to the right and adenopathy. Patient started on Zosyn and vancomycin. Multiple thoracentesis have been done with minimal change on the repeat chest x-rays. Cultures thus far are no growth. DAY 7 ANTIBIOTICS ON 09/16. (5) Acute metabolic encephalopathy: Code(s): G93.41 - Metabolic encephalopathy Status: Acute Assessment and Plan: Patient with underlying dementia. Patient is DNR, but not comfort meaures only. Suspect patient with acute encephalopathy related to the pneumonia with chronic component with dementia. Related to seizure seems less likely. (6) Atrial fibrillation: Code(s): I48.91 - Unspecified atrial fibrillation Status: Chronic Assessment and Plan: Patient has chronic atrial fibrillation. Patient is not on any rate controlling medications or anticoagulation. EKG showing Atrial fibrillation with RVR. Occasionally elevated HR but felt related to either dehydration and/or his large pleural effusion. Troponins are mildly elevated likely due to AFib with RVR and acute illness. HR better with re-hydration. (7) BPH (benign prostatic hyperplasia): Code(s): N40.0 - Benign prostatic hyperplasia without lower urinary tract symptoms Status: Chronic Assessment and Plan: Patient on Flomax chronically. Verdugo catheter has been inserted. Resumed Flomax. (8) Dementia: Code(s): F03.90 - Unspecified dementia without behavioral disturbance Status: Chronic Assessment and Plan: Patient
[2020-09-16] MEDS: ACETAMINOPHEN 325 MG TABLET 650 MG PO (16:31)
[2020-09-16] MEDS: DONEPEZIL HCL 10 MG TABLET PO (20:34)
[2020-09-16] MEDS: TAMSULOSIN HCL 0.4 MG CAPSULE PO (20:35)
[2020-09-16] MEDS: MEMANTINE HCL XR 28 MG CAP PO (20:35)
[2020-09-17] VITALS (18 sets, daily range): BP systolic 109–141; BP diastolic 83–97; PULSE 40–92; RESP 2–28; TEMP 36.2–36.8; O2SAT 95–100
[2020-09-17] MEDS: ALBUTEROL SULFATE NEB 2.5 MG/0.5 ML INH 5 MG INHALATION ×4 (01:40→20:28)
[2020-09-17] MEDS: IPRATROPIUM BR 0.02% INH SOLN 0.5 MG/2.5 ML VIAL INHALATION ×4 (01:41→20:28)
[2020-09-17 06:34] LABS: Albumin Level 3.4 g/dL (3.5-5.1); Anion Gap 8 mmol/L (8-16); Blood Urea Nitrogen 50 mg/dL (9-20); Calcium 8.8 mg/dL (8.4-10.2); Carbon Dioxide 27 mmol/L (22-30); Chloride 112 mmol/L (98-107); Estimated CRCL calculation 21 ml/min; Estimated Glomerular Filt Rate 29; Glucose 127 mg/dL (75-110); Potassium 4.2 mmol/L (3.4-5.0); Sodium 147 mmol/L (137-145)
[2020-09-17] MEDS: levETIRAcetam 500 MG TABLET PO ×2 (08:36→17:37)
[2020-09-17] MEDS: levETIRAcetam 250 MG TABLET PO ×2 (08:36→17:37)
[2020-09-17] MEDS: ASPIRIN 81 MG CHEWABLE TABLET PO (08:36)
[2020-09-17] MEDS: PANTOPRAZOLE SODIUM IV 40 MG VIAL IV PUSH ×2 (08:37→20:16)
[2020-09-17] MEDS: SILVERGEL (ELTA) 45 ML 1 APPLIC TOPICAL (08:37)
--- NOTE | 2020-09-17 10:55 | PCNFU ---
Nutrition Follow-Up Complete: Nutrition Diagnosis: Swallowing difficulties related to dyspnea and dementia as evidenced by a modified diet and inability to consume solid foods. Nutrition Goal: Have patient meet estimated nutritional needs. Goal is in progress, patient is consuming 10-30% of meals. Nutrition recommendation: Continue with Regular, Moderately Thick level 3, Pureed level 4 diet and Ensure Enlive BID Last recorded weight is 85 kg. Recommend obtaining new weight. Bowel Motility: Last documented on 09/15 Labs Reviewed:Hgb(13.5), Alb (3.4), Na (147), GFR(29), BUN(50), Cr(2.2), Glu(127) Meds Noted:Albuterol, Aricept, Atrovent, Protonix, Zosyn at 2.25 gm, Vancomycin HCl, Flomax, Levetiracetam, Memantine Additional Notes: Unstageable pressure ulcers on bilateral ankles. Bilateral buttocks wound from friction. Agree with diet orders. Patient reports he 'doesn't need food', which is why he is not consuming much. He reports food tastes good, but isn't necessary. No questions/ concerns reported during this time. Will follow up in 3 days.
--- NOTE | 2020-09-17 13:04 | PCNSR ---
On 09/17/20, the student,Magaly Estrada, provided care and completed [facility] documentation on this patient. I have reviewed the student's documentation and agree with the findings.
--- NOTE | 2020-09-17 13:59 | PM.IMPN ---
Progress Note: A&P Assessment and Plan (1) Acute respiratory failure with hypoxia and hypercapnia: Code(s): J96.01 - Acute respiratory failure with hypoxia; J96.02 - Acute respiratory failure with hypercapnia Status: Acute Assessment and Plan: ABG revealed respiratory acidosis with a pH is 7.23 with pCO2 of 58 and a PO2 of 74 on 3 L. Serum bicarb was normal. Patient was started on BiPAP. Resp failure related to PNA and large pleural effusion. Consider lung malignancy. Patient is a DNR. Weaned off BiPAP during the day but continue at night. Continue supportive care. Spoke with family and they were updated. All questions answered. (2) Acute kidney injury: Code(s): N17.9 - Acute kidney failure, unspecified Status: Acute Assessment and Plan: Patient's creatinine 2.1 on admission but climbed quickly to 3.2. With IV fluids, creatinine this morning is back to baseline 2.2. Renal ultrasound was negative. Unclear on baseline Cr. Urine sodium is 7 to suggest dehydration. Probably ATN from the HoTN/infection/resp failure. Follow (3) Pleural effusion: Code(s): J90 - Pleural effusion, not elsewhere classified Status: Acute Assessment and Plan: Patient has a large left pleural effusion unclear etiology. Underwent thoracentesis 09/10 with 1L removed. Pathology was added. 2nd thoracentesis 09/12 with removal of 1L; No RBC/WBC total but 51% PMNs and 42% lymph. pH 7.29. Gram stain negative for MO. CXR still showing large pleural effusion. Path showing atypical cells but too few of cells to make a definite diagnosis. Appears to be Exudative by Light criteria and Pl Chol>55. Third thoracentesis performed 09/13 with 1L removed but persistent white out. Repeat thoracentesis again 09/14. Concerning findings for malignancy. With a PPS 30 in this elderly gentleman with dementia, the prognosis is very poor. (4) PNA (pneumonia): Code(s): J18.9 - Pneumonia, unspecified organism Status: Acute Assessment and Plan: CT of the chest showing masslike consolidation right upper lobe near the apex as well as a large left and moderate right pleural effusion with atelectasis. There was a mediastinal shift to the right and adenopathy. Patient started on Zosyn and vancomycin. Multiple thoracentesis have been done with minimal change on the repeat chest x-rays. Cultures thus far are no growth. He has completed 7 days of IV abx so will stop. (5) Acute metabolic encephalopathy: Code(s): G93.41 - Metabolic encephalopathy Status: Acute Assessment and Plan: Patient with underlying dementia. Patient is DNR. Suspect patient with acute encephalopathy related to the pneumonia with chronic component with dementia. Related to seizure seems less likely. Improved overall. (6) Atrial fibrillation: Code(s): I48.91 - Unspecified atrial fibrillation Status: Chronic Assessment and Plan: Patient has chronic atrial fibrillation. Patient is not on any rate controlling medications or anticoagulation. EKG showing Atrial fibrillation with RVR. Occasionally elevated HR but felt related to either dehydration and/or his large pleural effusion. Troponins are mildly elevated likely due to AFib with RVR and acute illness. HR better with re-hydration. (7) BPH (benign prostatic hyperplasia): Code(s): N40.0 - Benign prostatic hyperplasia without lower urinary tract symptoms Status: Chronic Assessment and Plan: Patient on Flomax chronically. Verdugo catheter has been inserted. Continue Flomax. (8) Dementia: Code(s): F03.90 - Unspecified dementia without behavioral disturbance Status: Chronic Assessment and Plan: Patient with chronic dementia. Orientation improved but still waxes/wanes. His Namenda and Aricept have been resumed. (9) Seizure disorder: Code(s): G40.909 - Epilepsy, unspecified, not intract
[2020-09-17 17:22] LABS: Appearance Pleural Fluid Hazy (Clear); Color Pleural Fluid Other (Colorless); Pleural fluid source Pleural fluid
[2020-09-17 17:24] LABS: Lymphocytes Pleural Fluid 20 %; Neutrophils Pleural Fluid 72 % (0-25)
[2020-09-17 17:25] LABS: Macrophages Pleural Fluid 8 %
[2020-09-17] MEDS: ACETAMINOPHEN 325 MG TABLET 650 MG PO (20:16)
[2020-09-17] MEDS: TAMSULOSIN HCL 0.4 MG CAPSULE PO (21:15)
[2020-09-17] MEDS: MEMANTINE HCL XR 28 MG CAP PO (21:15)
[2020-09-17] MEDS: DONEPEZIL HCL 10 MG TABLET PO (21:15)
[2020-09-18] VITALS (17 sets, daily range): BP systolic 119–145; BP diastolic 54–88; PULSE 53–103; RESP 20–33; TEMP 36–37; O2SAT 91–100
[2020-09-18] MEDS: IPRATROPIUM BR 0.02% INH SOLN 0.5 MG/2.5 ML VIAL INHALATION ×4 (02:18→20:23)
[2020-09-18] MEDS: ALBUTEROL SULFATE NEB 2.5 MG/0.5 ML INH 5 MG INHALATION ×4 (02:18→20:22)
[2020-09-18 09:05] LABS: Hematocrit 45.3 % (42.0-52.0); Hemoglobin 14.6 g/dL (14.0-18.0); Mean Corpuscular HGB Conc 32.2 g/dl (32-36); Mean Corpuscular Hemoglobin 31.1 pg (26-34); Mean Corpuscular Volume 96.6 fl (80-100); Mean Platelet Volume 10.3 fl (7.4-10.4); Platelet Count Result 258 k/mm3 (150-375); Red Blood Count 4.69 M/mm3 (4.6-6.20); White Blood Count 9.6 K/mm3 (4.5-10.0)
[2020-09-18] MEDS: ASPIRIN 81 MG CHEWABLE TABLET PO (09:23)
[2020-09-18] MEDS: PANTOPRAZOLE SODIUM IV 40 MG VIAL IV PUSH ×2 (09:23→20:31)
[2020-09-18] MEDS: levETIRAcetam 500 MG TABLET PO ×2 (09:24→16:58)
[2020-09-18] MEDS: levETIRAcetam 250 MG TABLET PO ×2 (09:24→16:58)
[2020-09-18] MEDS: SILVERGEL (ELTA) 45 ML 1 APPLIC TOPICAL (09:26)
[2020-09-18 09:43] LABS: Alanine Aminotransferase 23 U/L (4-50); Albumin Level 3.5 g/dL (3.5-5.1); Alkaline Phosphatase 89 U/L (38-126); Anion Gap 10 mmol/L (8-16); Aspartate Amino Transferase 29 U/L (17-59); Bilirubin,Total 0.8 mg/dL (0.2-1.3); Blood Urea Nitrogen 54 mg/dL (9-20); Calcium 8.6 mg/dL (8.4-10.2); Carbon Dioxide 26 mmol/L (22-30); Chloride 109 mmol/L (98-107); Estimated CRCL calculation 24 ml/min; Estimated Glomerular Filt Rate 34; Glucose 114 mg/dL (75-110); Potassium 3.6 mmol/L (3.4-5.0); Sodium 145 mmol/L (137-145)
[2020-09-18 10:19] LABS: Vancomycin Trough 12.9 ug/mL (10.0-20.0)
--- NOTE | 2020-09-18 11:12 | PM.IMPN ---
Progress Note: A&P Assessment and Plan (1) Acute respiratory failure with hypoxia and hypercapnia: Code(s): J96.01 - Acute respiratory failure with hypoxia; J96.02 - Acute respiratory failure with hypercapnia Status: Acute Assessment and Plan: ABG revealed respiratory acidosis with a pH is 7.23 with pCO2 of 58 and a PO2 of 74 on 3 L. Serum bicarb was normal. Patient was started on BiPAP. Resp failure related to PNA and large pleural effusion. Consider lung malignancy. Patient is a DNR. Weaned off BiPAP during the day but continue at night. Down to 2L O2 NC. Continue supportive care. (2) Acute kidney injury: Code(s): N17.9 - Acute kidney failure, unspecified Status: Acute Assessment and Plan: Patient's creatinine 2.1 on admission but climbed quickly to 3.2. With IV fluids, creatinine this morning is back to baseline 1.9. Renal ultrasound was negative. Unclear on baseline Cr. Urine sodium is 7 to suggest dehydration. Probably ATN from the HoTN/infection/resp failure. Patient with diffuse edema. Albumin normal. Bumex once. Follow (3) Pleural effusion: Code(s): J90 - Pleural effusion, not elsewhere classified Status: Acute Assessment and Plan: Patient has a large left pleural effusion unclear etiology. Underwent thoracentesis x5 with removal of about 5L from his left chest without much change in the CXR findings. pH 7.29. Gram stain negative for MO. Path showing atypical cells but too few of cells to make a definite diagnosis. Appears to be Exudative by Light criteria and Pl Chol>55. Concerning for malignancy vs trapped lung. Unclear on duration of these findings but subtle airspace opacity in the JULIET seen by CXR 01/01/18. With a PPS 30 in this elderly gentleman with dementia, the prognosis is very poor. Dtr however does not feel comfort measures are warranted. Will discuss with Surgery about possible Pleurex Catheter. Pulmonary consult. (4) PNA (pneumonia): Code(s): J18.9 - Pneumonia, unspecified organism Status: Acute Assessment and Plan: CT of the chest showing masslike consolidation right upper lobe near the apex as well as a large left and moderate right pleural effusion with atelectasis. There was a mediastinal shift to the right and adenopathy. Patient started on Zosyn and vancomycin. Multiple thoracentesis have been done with minimal change on the repeat chest x-rays. Cultures thus far are no growth. Abx stopped. (5) Acute metabolic encephalopathy: Code(s): G93.41 - Metabolic encephalopathy Status: Acute Assessment and Plan: Patient with underlying dementia. Patient is DNR. Suspect patient with acute encephalopathy related to the pneumonia with chronic component with dementia. Related to seizure seems less likely. Improved overall. (6) Atrial fibrillation: Code(s): I48.91 - Unspecified atrial fibrillation Status: Chronic Assessment and Plan: Patient has chronic atrial fibrillation. Patient is not on any rate controlling medications or anticoagulation. EKG showing Atrial fibrillation with RVR. Occasionally elevated HR but felt related to either dehydration and/or his large pleural effusion. Troponins are mildly elevated likely due to AFib with RVR and acute illness. HR better with re-hydration. (7) BPH (benign prostatic hyperplasia): Code(s): N40.0 - Benign prostatic hyperplasia without lower urinary tract symptoms Status: Chronic Assessment and Plan: Patient on Flomax chronically. Verdugo catheter in place. Continue Flomax. (8) Dementia: Code(s): F03.90 - Unspecified dementia without behavioral disturbance Status: Chronic Assessment and Plan: Patient with chronic dementia. Orientation seems to waxes/wanes. His Namenda and Aricept have been resumed. (9) Seizure disorder: Code(s): G40.909 - Epilepsy, unspecified, not
[2020-09-18] MEDS: ENOXAPARIN 30 MG/0.3 ML SYRINGE SUB-Q (16:57)
[2020-09-18] MEDS: BUMETANIDE INJ 1 MG/4 ML VIAL IV PUSH (16:57)
[2020-09-18] MEDS: TAMSULOSIN HCL 0.4 MG CAPSULE PO (20:31)
[2020-09-18] MEDS: MEMANTINE HCL XR 28 MG CAP PO (20:32)
[2020-09-18] MEDS: DONEPEZIL HCL 10 MG TABLET PO (20:32)
[2020-09-19] VITALS (10 sets, daily range): BP systolic 128–132; BP diastolic 80–81; PULSE 34–72; RESP 16–36; TEMP 35.9–36.2; O2SAT 90–98
[2020-09-19] MEDS: ALBUTEROL SULFATE NEB 2.5 MG/0.5 ML INH 5 MG INHALATION ×3 (02:47→14:03)
[2020-09-19] MEDS: IPRATROPIUM BR 0.02% INH SOLN 0.5 MG/2.5 ML VIAL INHALATION ×3 (02:47→14:03)
[2020-09-19 06:31] LABS: Hematocrit 45.8 % (42.0-52.0); Hemoglobin 14.5 g/dL (14.0-18.0); Mean Corpuscular HGB Conc 31.7 g/dl (32-36); Mean Corpuscular Hemoglobin 31.1 pg (26-34); Mean Corpuscular Volume 98.3 fl (80-100); Mean Platelet Volume 10.1 fl (7.4-10.4); Platelet Count Result 228 k/mm3 (150-375); Red Blood Count 4.66 M/mm3 (4.6-6.20); Red Cell Distribution Width 16.1 % (11.5-14.5); White Blood Count 8.6 K/mm3 (4.5-10.0)
[2020-09-19 06:50] LABS: Albumin Level 3.2 g/dL (3.5-5.1); Anion Gap 7 mmol/L (8-16); Blood Urea Nitrogen 54 mg/dL (9-20); Calcium 8.6 mg/dL (8.4-10.2); Carbon Dioxide 28 mmol/L (22-30); Chloride 110 mmol/L (98-107); Estimated CRCL calculation 26 ml/min; Estimated Glomerular Filt Rate 38; Glucose 104 mg/dL (75-110); Magnesium 2.5 mg/dL (1.6-2.3); Phosphorus 2.7 mg/dL (2.5-4.5); Potassium 3.9 mmol/L (3.4-5.0); Sodium 145 mmol/L (137-145)
[2020-09-19] MEDS: levETIRAcetam 500 MG TABLET PO (09:08)
[2020-09-19] MEDS: BUMETANIDE INJ 1 MG/4 ML VIAL IV PUSH (09:08)
[2020-09-19] MEDS: ASPIRIN 81 MG CHEWABLE TABLET PO (09:08)
[2020-09-19] MEDS: ENOXAPARIN 30 MG/0.3 ML SYRINGE SUB-Q (09:08)
[2020-09-19] MEDS: levETIRAcetam 250 MG TABLET PO (09:09)
[2020-09-19] MEDS: SILVERGEL (ELTA) 45 ML 1 APPLIC TOPICAL (09:09)
[2020-09-19] MEDS: PANTOPRAZOLE SODIUM IV 40 MG VIAL IV PUSH (09:10)
--- NOTE | 2020-09-19 13:55 | PM.DS ---
DS: Admitting Diagnosis Admitting Diagnosis Admitting Diagnosis: unresponsiveness DS: Discharge Diagnosis Discharge Diagnosis (1) Acute respiratory failure with hypoxia and hypercapnia: Code(s): J96.01 - Acute respiratory failure with hypoxia; J96.02 - Acute respiratory failure with hypercapnia Status: Acute Assessment and Plan: ABG revealed respiratory acidosis with a pH is 7.23 with pCO2 of 58 and a PO2 of 74 on 3 L. Serum bicarb was normal. Patient was started on BiPAP. Resp failure related to PNA and large left pleural effusion. Consider lung malignancy. Patient is a DNR. He underwent multiple thoracenteses and was treated with IV abx. Able to wean off BiPAP during the day but this was continued at night. Down to 2L O2 nasal cannula while awake. (2) Acute kidney injury: Code(s): N17.9 - Acute kidney failure, unspecified Status: Acute Assessment and Plan: Patient's creatinine 2.1 on admission but climbed quickly to 3.2. Unclear on baseline Cr. Renal ultrasound was normal. Urine sodium is 7 to suggest dehydration. With IV fluids, creatinine improved but he became mildly edematous. Probably dehydration but can not exclude ATN from the HoTN/infection/resp failure. Albumin okay. LE Doppler negative for DVT. He was treated with intermittent doses of Bumex with good UOP. Cr tolerated this and Cr at time of discharge was 1.7. Follow at the correction (3) Pleural effusion: Code(s): J90 - Pleural effusion, not elsewhere classified Status: Acute Assessment and Plan: Patient has a large left pleural effusion unclear etiology. CT chest 09/10 showing masslike consolidation right upper lobe near the apex, large left and moderate right pleural effusions with underlying compressive atelectasis, mediastinal shift to the right and mediastinal lymphadenopathy. We had trouble contacting family for the first 4-5 days of this patient's hospitalization. He underwent thoracentesis x6 with removal of about 6L from his left chest without much change in the CXR findings. pH 7.29. Gram stain negative for MO. Path showing atypical cells but too few of cells to make a definite diagnosis. Appears to be Exudative by Light criteria and Pl Chol>55. Concerning for malignancy. Probably trapped lung. Unclear on duration of these findings but subtle airspace opacity in the JULIET seen by CXR 01/01/18. With a PPS 30 in this elderly gentleman with dementia who is bed bound, the prognosis is very poor. We were able to contact the daughter finally(she stated she was in the hospital). Personally spoke with daughter multiple times and recommended hospice given the poor prognosis. Patient does have dementia but states he does not want to proceed with further testing. Dtr however does not feel comfort measures are warranted. Discussed with Pulmonary who recommended transfer to a tertiary care center. [facility] called 09/18 but since patient is now improving (down to 2L) and not in need of immediate intervention that he could be discharged with plans for outpatient follow up and evaluation. (4) PNA (pneumonia): Code(s): J18.9 - Pneumonia, unspecified organism Status: Acute Assessment and Plan: CT of the chest showing masslike consolidation right upper lobe near the apex as well as a large left and moderate right pleural effusion with atelectasis. There was a mediastinal shift to the right and adenopathy. Cultures are no growth. Patietn with dysphagia as mentioned below so aspiration PNA was considered. Patient completed 7 day course of broad spectrum abx. (5) Acute metabolic encephalopathy: Code(s): G93.41 - Metabolic encephalopathy Status: Acute Assessment and Plan: Patient with underlying dementia. CT brain showing no acute findings. Patient is DNR. Suspect patient with acute encephalopathy related to the acute respiratory failure and pneumonia with chronic c
--- NOTE | 2020-09-26 10:35 | PC.NURSE ---
SANDRA is negative. Dr. Niko brooke.
--- NOTE | 2020-10-08 13:36 | PC.NURSE ---
Aerobic and Anaerobic are negative. Dr. Niko brooke.
--- NOTE | 2020-10-16 10:29 | PC.NURSE ---
Body fluid and fungal cx are all negative. Dr. Niko brooke.
--- NOTE | 2020-10-30 10:14 | PC.NURSE ---
AFB cx is negative.
== END 2020-09-19 17:10 | DRG 189 ==
LOC: ANHED 16:57 → ANH3MEDSUR 09-10 06:58
PROVIDERS: Internal Medicine; Nurse Practitioner; Admitting Provider Family Medicine; Emergency Provider Emergency Medicine; PCP Internal Medicine; Visit Provider Physician Assistant
DX: J96.01 Acute respiratory failure with hypoxia (principal); J18.9 Pneumonia, unspecified organism; G93.41 Metabolic encephalopathy; J90 Pleural effusion, not elsewhere classified; N17.9 Acute kidney failure, unspecified; J96.02 Acute respiratory failure with hypercapnia; R13.10 Dysphagia, unspecified; I48.91 Unspecified atrial fibrillation; L98.429 Non-pressure chronic ulcer of back with unspecified severity; N40.0 Benign prostatic hyperplasia without lower urinary tract symptoms; F03.90 Unspecified dementia, unspecified severity, without behavioral disturbance, psychotic disturbance, mood disturbance, and anxiety; G40.909 Epilepsy, unspecified, not intractable, without status epilepticus; F41.9 Anxiety disorder, unspecified; K21.9 Gastro-esophageal reflux disease without esophagitis; I10 Essential (primary) hypertension; I73.89 Other specified peripheral vascular diseases; Z66 Do not resuscitate; Z79.899 Other long term (current) drug therapy; Z86.718 Personal history of other venous thrombosis and embolism
CPT/HCPCS: 32555; 36415; 36600; 70450; 71045; 71250; 73502; 76775; 80048; 80053; 80069; 80076; 80202; 81001; 82042; 82140; 82150; 82375; 82550; 82565; 82570; 82607; 82746; 82805; 82945; 83050; 83605; 83615; 83735; 83986; 84100; 84157; 84300; 84311; 84443; 84478; 84484; 85025; 85027; 85610; 86038; 86140; 87015; 87040; 87070; 87075; 87086; 87102; 87116; 87205; 87206; 88104; 88108; 88184; 88305; 88313; 88342; 89051; 92526; 92611; 93005; 93923; 93970; 94002; 94003; 94640; 94660; 95816; 97161; 97165; 99285; A9270; C9113; J0456; J0696; J1650; J1953; J2060; J2543; J3370; J7030; J7120

== ENCOUNTER 2020-09-25 09:01 | Inpatient (IN) | payer MEDICARE, MEDICAID, SELFPAY ==
[2020-09-25] VITALS (58 sets, daily range): BP systolic 55–156; BP diastolic 19–124; PULSE 88–132; RESP 12–26; TEMP 36.4; O2SAT 89–100; BMI 25.6
--- NOTE | ~2020-09-25 | XR_ITS ---
EXAMINATION: XR chest port-a-cath/central EXAM DATE: 09/25/2020 11:40 INDICATION: Central line insertion dr refused another picture due to. TECHNIQUE: Portable AP frontal chest x-ray was obtained. Comparison is made to prior examination from 09/25/2020. FINDINGS: There is a new right-sided IJ venous line. No evidence of postprocedure pneumothorax. Right lung is clear. Completely opacified left hemithorax unchanged. Can't evaluate cardiac silhouette. IMPRESSION: 1. Right IJ line in position. 2. Completely opacified left hemithorax unchanged. Reviewed, dictated and finalized at location B.
--- NOTE | ~2020-09-25 | US_ITS ---
EXAMINATION: US venous doppler UE RT DATE: 09/28/2020 16:35 INDICATION: Right upper limb swelling. TECHNIQUE: Grayscale ultrasound images without and with compression and Doppler ultrasound images of the right upper extremity veins were obtained. COMPARISON: None. FINDINGS: The visualized portions of the right internal jugular vein, subclavian vein, axillary vein, brachial veins, basilic vein, cephalic vein, radial vein, and ulnar vein are patent. There is a catheter in ri ght internal jugular vein. IMPRESSION: 1. No deep venous thrombosis. Reviewed, dictated and finalized at location A.
--- NOTE | ~2020-09-25 | US_ITS ---
EXAMINATION:US venous doppler LE BI INDICATION:Leg swelling TECHNIQUE: Multiple grayscale, color flow and Doppler images of the right and left lower extremity de ep venous systems were obtained and reviewed. COMPARISON: 09/18/2020. FINDINGS: The common femoral, superficial femoral and popliteal veins demonstrate normal respiratory variation, augmentation and compressibility. Color flow is also seen within the posterior tibial, pe roneal, greater saphenous and profunda veins. IMPRESSION: 1: No lower extremity deep venous thrombosis. Reviewed, dictated and finalized at location A.
--- NOTE | ~2020-09-25 | CT_ITS ---
EXAMINATION: CT chest abdomen wo con DATE: 09/28/2020 10:40 INDICATION: Left pleural effusion. TECHNIQUE: Computed tomography (CT) of the chest and abdomen was performed without intravenous contra st. Automated exposure control and iterative reconstruction technique were employed. The dose-length product was 907.60 mGy-cm. COMPARISON: Chest CT 09/10/2020 FINDINGS: CHEST CT: There is a large left pleural effusion with rightward displacement of the mediastinum and inferior di splacement of the diaphragm. There are areas of pleural thickening in left hemithorax. There is a mo derate-sized right pleural effusion. There is complete atelectasis of left lung and dependent atelect asis in right lung. There is an ill-defined 3 cm mass in left lung upper lobe. There is a 2.0 cm nodu le in right lung apex with air bronchograms. There are mild peripheral air groundglass opacities in r ight upper lobe. The heart demonstrates left atrial enlargement. There are coronary artery calcificat ions. There are calcifications of the aortic valve. No pericardial effusion. There is mild mediastina l lymphadenopathy. For example, a right paratracheal node measures 1.7 x 2.1 cm. There is moderate t horacic spondylosis. ABDOMEN CT: Motion artifact is noted. The liver is normal. There are changes of cholecystectomy. The spleen, panc reas, and adrenal glands are normal. There are cysts in the kidneys measuring up to 17 mm on the righ t. There is a 4 mm stone in left kidney. Partially visualized is distention of the rectosigmoid with stool. There are no pathologically enlarged lymph nodes. There is trace ascites. There is moderate l umbar spondylosis. IMPRESSION: 1. Large malignant left pleural effusion with rightward mediastinal shift and inferior displacement o f the diaphragm. 2. Ill-defined 3 cm mass in left lung upper lobe suspicious for primary malignancy. 3. Moderate-sized right pleural effusion. 4. 2.0 cm nodule in right lung upper lobe, consistent with scarring versus primary bronchogenic carci noma. 5. Mild peripheral groundglass opacities in right lung upper lobe, consistent with inflammation/infec tion versus mild edema. 6. Partially visualized rectosigmoid distention. Reviewed, dictated and finalized at location A. IMPRESSION: 1. Large malignant left pleural effusion with rightward mediastinal shift and i nferior displacement of the diaphragm. 2. Ill-defined 3 cm mass in left lung upper lobe suspicious for primary maligna ncy. 3. Moderate-sized right pleural effusion. 4. 2.0 cm nodule in right lung upper lobe, consistent with scarring versus prim carlos alberto bronchogenic carcinoma. 5. Mild peripheral groundglass opacities in right lung upper lobe, consistent w ith inflammation/infection versus mild edema. 6. Partially visualized rectosigmoid distention.
--- NOTE | ~2020-09-25 | US_ITS ---
EXAMINATION: US thoracentesis DATE: 09/25/2020 16:22 INDICATION: pleural effusion TECHNIQUE: The skin was prepped and draped in sterile fashion. 1% lidocaine was used for local anesth esia. Under ultrasound guidance, a 5 Fr catheter with trochar was advanced into the left pleural effu moe. Fluid was aspirated. The catheter was removed, and a dressing was applied. There were no immedi ate complications. FINDINGS: Ultrasound images demonstrate a left pleural effusion and the catheter within the fluid. IMPRESSION: 1. Successful ultrasound-guided thoracentesis yielding 1200 mL of red fluid. Reviewed, dictated and finalized at location A.
--- NOTE | ~2020-09-25 | US_ITS ---
US renal BI 09/25/2020 16:19 Procedure: Realtime transabdominal ultrasound of the kidneys and bladder. Indication: Acute renal insufficiency Comparison: 09/10/2020 Findings: Renal echotexture is normal bilaterally without hydronephrosis, contour deforming mass or r enal calculus. The right kidney measures 9.4 cm and left kidney measures 9.9 cm. Limited visualizatio n of the left kidney due to overlying bowel. Bladder is not well distended due to catheterization. Impression: 1: Unremarkable renal ultrasound. No stones, masses or hydronephrosis. Limited evaluation of the lef t kidney. Reviewed, dictated and finalized at location A. Impression: 1: Unremarkable renal ultrasound. No stones, masses or hydronephrosis. Limited evaluation of the left kidney.
--- NOTE | ~2020-09-25 | US_ITS ---
EXAMINATION: US thoracentesis DATE: 09/28/2020 16:42 INDICATION: pleural effusion TECHNIQUE: The procedure and its risks were discussed with Marychuy Elliott, who provided informed cons ent. Potential risks discussed included bleeding, infection, and pneumothorax. The skin was prepped a nd draped in sterile fashion. 1% lidocaine was used for local anesthesia. Under ultrasound guidance, a 5 Fr catheter with trochar was advanced into the left pleural effusion. Fluid was aspirated. The ca theter was removed, and a dressing was applied. There were no immediate complications. FINDINGS: Ultrasound images demonstrate a left pleural effusion and the catheter within the fluid. IMPRESSION: 1. Successful ultrasound-guided thoracentesis yielding 2000 mL of red fluid. Reviewed, dictated and finalized at location A.
--- NOTE | ~2020-09-25 | XR_ITS ---
EXAMINATION: XR_[id number]_CR DATE: 09/25/2020 16:24 INDICATION: Left pleural effusion status post thoracentesis. TECHNIQUE: A single frontal view of the chest was obtained. COMPARISON: Chest single view at 11:30 AM FINDINGS: The patient is rotated to his left. There is complete opacification of left hemithorax, con sistent with large pleural effusion. There is rightward deviation of the mediastinum. No pneumothorax . The heart size is obscured. There is a right internal jugular central venous catheter with tip at s uperior cavoatrial junction. There are old healed left rib fractures. IMPRESSION: 1. Large left pleural effusion with improvement in rightward deviation of the mediastinum status post thoracentesis. Reviewed, dictated and finalized at location A. IMPRESSION: 1. Large left pleural effusion with improvement in rightward deviation of the m ediastinum status post thoracentesis.
--- NOTE | ~2020-09-25 | XR_ITS ---
EXAMINATION: XR_[id number]_CR DATE: 09/27/2020 15:41 INDICATION: Left pleural effusion status post thoracentesis. TECHNIQUE: A single frontal view of the chest was obtained on 2 radiographs. COMPARISON: Chest single view at 5:12 AM FINDINGS: The patient is rotated to his left. There is complete opacification of left hemithorax. The re is mild rightward shift of the mediastinum. There is a small right pleural effusion. There are air space opacities at right lung base. No pneumothorax. The heart size is obscured. A right internal jug ular central venous catheter is seen with tip in the right atrium. There are old healed left rib frac tures. IMPRESSION: 1. Persistent complete opacification of left hemithorax with slightly improved rightward mediastinal shift, consistent with large pleural effusion. 2. Stable small right pleural effusion. 3. Stable airspace opacities at right lung base, consistent with atelectasis versus pneumonia. Reviewed, dictated and finalized at location A. IMPRESSION: 1. Persistent complete opacification of left hemithorax with slightly improved rightward mediastinal shift, consistent with large pleural effusion. 2. Stable small right pleural effusion. 3. Stable airspace opacities at right lung base, consistent with atelectasis ve rsus pneumonia.
--- NOTE | ~2020-09-25 | XR_ITS ---
XR chest 1V portable DATE: 09/28/2020 05:35 INDICATION: Left pleural effusion TECHNIQUE: Portable AP chest on 09/28/2020 at 0510 hours COMPARISON: 10/09/2020 portable AP chest at 1539 hours FINDINGS: There is virtually complete opacification of the left hemithorax due to pleural effusion an d associated left lung atelectasis. There is pulmonary vascular congestion and redistribution on the right as well as prominence of minor fissure, mild right pleural effusion and mild right perihilar infiltrates greater extent right lower lung infiltrate and/atelectasis. Aortic calcification. Right internal jugular central venous catheter tip overlies the upper right atrium. No pneumothorax. IMPRESSION: Persistent opacification of left hemithorax due to large pleural effusion and left lung a telectasis Preoperative evaluation and redistribution, subpleural edema, probable right pulmonary edema, right p leural effusion Infiltrate and/atelectasis in the right perihilar and particularly right lower lung zones which may b e due to pulmonary edema, atelectasis and/or pneumonia. The congestive changes and infiltrates are mi ldly increased compared to 09/27/2020 Reviewed, dictated and finalized at location A. IMPRESSION: Persistent opacification of left hemithorax due to large pleural ef fusion and left lung atelectasis Preoperative evaluation and redistribution, subpleural edema, probable right pu lmonary edema, right pleural effusion Infiltrate and/atelectasis in the right perihilar and particularly right lower lung zones which may be due to pulmonary edema, atelectasis and/or pneumonia. T he congestive changes and infiltrates are mildly increased compared to 09/27/2020
--- NOTE | ~2020-09-25 | XR_ITS ---
XR chest 1V portable DATE: 09/26/2020 05:31 INDICATION: Left-sided pleural effusion TECHNIQUE: Portable AP chest views on 09/26/2020 at 0505 hours COMPARISON: 09/25/2020 portable AP chest post thoracentesis 09/25/2020 portable AP chest 1130 hours 09/10/2020 CT chest high resolution scan FINDINGS: There is persistent complete opacification of the left hemithorax due to a combination of p leural effusion and left lung atelectasis. There is some rightward shift of the heart mediastinum. Small infiltrate or atelectasis in the right lower lung primarily. No right pleural effusion is evident. No pneumothorax. Right internal jugular central venous catheter tip overlies the right atrium. Diffuse osteopenia. IMPRESSION: Persistent opacification of the left thorax due to large pleural effusion and left lung a telectasis Reviewed, dictated and finalized at location A. IMPRESSION: Persistent opacification of the left thorax due to large pleural ef fusion and left lung atelectasis
--- NOTE | ~2020-09-25 | XR_ITS ---
EXAMINATION: XR chest 1V portable DATE: 09/25/2020 10:13 INDICATION: Shortness of breath. TECHNIQUE: A single frontal view of the chest was obtained. COMPARISON: Chest 2 views 09/18/2020 FINDINGS: The patient is rotated to his left. There is complete opacification of left hemithorax with rightward shift of the mediastinum. There is mild atelectasis in right lung. No pneumothorax. The he art size is obscured. There are old healed left rib fractures. IMPRESSION: 1. Persistent complete opacification of left hemithorax with worsened rightward displacement of the m ediastinum, consistent with large pleural effusion. 2. Mild atelectasis in right lung. Reviewed, dictated and finalized at location A. IMPRESSION: 1. Persistent complete opacification of left hemithorax with worsened rightward displacement of the mediastinum, consistent with large pleural effusion. 2. Mild atelectasis in right lung.
--- NOTE | ~2020-09-25 | XR_ITS ---
EXAMINATION: XR_[id number]_CR DATE: 09/28/2020 16:18 INDICATION: Left pleural effusion status post thoracentesis. TECHNIQUE: A single frontal view of the chest was obtained on 2 radiographs. COMPARISON: Chest single view at 5:05 AM FINDINGS: The patient is rotated to his left. There is persistent complete opacification of left blue thorax, consistent with large pleural effusion. There is a small right pleural effusion. There are ai rspace opacities in right lower lung zone, likely atelectasis. No pneumothorax. The heart size is obs cured. There are old healed left rib fractures. There are surgical clips in right abdomen. A right in ternal jugular central venous catheter is seen with tip at the superior cavoatrial junction. IMPRESSION: 1. Large left pleural effusion with persistent complete opacification of left hemithorax. 2. Stable small right pleural effusion. 3. Stable airspace opacities in right lower lung zone, likely atelectasis. Reviewed, dictated and finalized at location A. IMPRESSION: 1. Large left pleural effusion with persistent complete opacification of left h emithorax. 2. Stable small right pleural effusion. 3. Stable airspace opacities in right lower lung zone, likely atelectasis.
--- NOTE | ~2020-09-25 | US_ITS ---
EXAMINATION: US thoracentesis DATE: 09/27/2020 15:37 INDICATION: pleural effusion TECHNIQUE: The skin was prepped and draped in sterile fashion. 1% lidocaine was used for local anesth esia. Under ultrasound guidance, a 5 Fr catheter with trochar was advanced into the left pleural effu moe. Fluid was aspirated. The catheter was removed, and a dressing was applied. There were no immedi ate complications. FINDINGS: Ultrasound images demonstrate a left pleural effusion and the catheter within the fluid. IMPRESSION: 1. Successful ultrasound-guided thoracentesis yielding 1200 mL of reddish tiffany-colored fluid. Reviewed, dictated and finalized at location A. IMPRESSION: 1. Successful ultrasound-guided thoracentesis yielding 1200 mL of reddish ambe r-colored fluid.
--- NOTE | ~2020-09-25 | XR_ITS ---
XR chest 1V portable DATE: 09/27/2020 05:25 INDICATION: Left pleural effusion TECHNIQUE: Portable AP chest on 09/27/2020 at 0516 hours COMPARISON: 09/26/2020 portable AP chest at 0505 hours FINDINGS: There is complete opacification of the left hemithorax due to combination of left pleural e ffusion and left lung atelectasis, with mild rightward shift of heart and mediastinum. There is infiltrate or atelectasis in the right lower lung zone. Small right pleural effusion is sugg ested. Right internal jugular central venous catheter tip overlies the upper right atrium. There is aortic c alcification. No pneumothorax is evident. Surgical clips, right upper quadrant, consistent with cholecystectomy. Diffuse osteopenia. Old healed left rib fractures. IMPRESSION: Persistent opacification of left hemithorax due to pleural effusion and left lung atelect asis, with some] shift of the heart mediastinum Increased infiltrate or atelectasis in the right lower lung and suggestion of mild right pleural effu moe Reviewed, dictated and finalized at location A. IMPRESSION: Persistent opacification of left hemithorax due to pleural effusion and left lung atelectasis, with some] shift of the heart mediastinum Increased infiltrate or atelectasis in the right lower lung and suggestion of m ild right pleural effusion
--- NOTE | 2020-09-25 09:08 | ECG_ITS ---
Measurements Intervals Docena Rate: 131 P: WA: 0 QRS: -3 QRSD: 101 T: 161 QT: 294 QTc: 435 Interpretive Statements ATRIAL FIBRILLATION WITH RAPID VENTRICULAR RESPONSE VENTRICULAR PREMATURE COMPLEX INCOMPLETE RIGHT BUNDLE BRANCH BLOCK NONSPECIFIC ST & T-WAVE ABNORMALITY- DIFFUSE LEADS BASELINE ARTIFACT- I, III, AVR, AVL, AVF, V2-V5 ABNORMAL ECG Electronically Signed On 09-25-2020 9:56:30 CDT by Preez Nolen D.O.
--- NOTE | 2020-09-25 09:18 | PC.NURSE ---
Per EDP verbal order patient given 500 ml normal saline bolus.
--- NOTE | 2020-09-25 09:24 | ED.SOB ---
HPI - SOB/Dyspnea General Chief Complaint: Shortness of Breath/Dyspnea Stated Complaint: SOB Time Seen by Provider: 09/25/20 09:06 Source: EMS Mode of arrival: EMS Limitations: altered mental status, physical limitation and dementia History of Present Illness HPI Narrative: Patient is an 85-year-old male brought in respiratory distress. EMS states that nursing called this morning due to patient in respiratory distress. Patient is from senior care has severe dementia and nonverbal. Unable to get any history from the patient. Related Data Home Medications Medication Instructions Recorded Confirmed Namzaric 1 cap PO HS 05/06/20 09/10/20 furosemide 20 mg PO BID 05/06/20 09/10/20 levetiracetam 750 mg PO BID 05/06/20 09/10/20 mirtazapine 15 mg PO HS 05/06/20 09/10/20 potassium chloride [Klor-Con 10] 10 meq PO DAILY 05/06/20 09/10/20 quetiapine 50 mg PO BID 05/06/20 09/10/20 tamsulosin 0.4 mg PO DAILY 05/06/20 09/10/20 sennosides [senna] 8.6 mg PO BID PRN 09/10/20 09/10/20 Allergies Allergy/AdvReac Type Severity Reaction Status Date / Time chlorpromazine Allergy Mild Unknown Verified 09/09/20 19:14 haloperidol Allergy Mild Unknown Verified 09/09/20 19:14 iodine Allergy Mild Unknown Verified 09/09/20 19:14 medrysone Allergy Mild Unknown Verified 09/09/20 19:14 olanzapine Allergy Mild Unknown Verified 09/09/20 19:14 tetanus toxoid, adsorbed Allergy Mild Unknown Verified 09/09/20 19:14 codeine Allergy Unknown Unknown Verified 09/09/20 19:14 digoxin Allergy Unknown Unknown Verified 09/09/20 19:14 fluphenazine Allergy Unknown Unknown Verified 09/09/20 19:14 LIVER AND STOM Allergy Mild Unknown Uncoded 09/09/20 19:14 SEAFOOD Allergy Mild Unknown Uncoded 09/09/20 19:14 MIKE HOSE AdvReac Unknown Unknown Uncoded 09/09/20 19:14 Review of Systems Review of Systems: All systems reviewed & are unremarkable except as noted in HPI and below PMFSH Past Medical History Medical History Anxiety Atrial fibrillation BPH (benign prostatic hyperplasia) Chronic GERD Dementia Dysphagia History of DVT (deep vein thrombosis) History of intracranial hemorrhage HTN (hypertension), malignant Seizure disorder Surgical History Surgical History H/O abdominal surgery The patient has multiple scars on his abdomen Family History Family History Unknown Unknown family medical history Social History Social History Social History: The patient is listed as a DNR. According to his face sheet he is retired and . There was a ector that is listed as durable power director of distance learning. Smoking status: Unknown if ever smoked Gender identity (if verbalized by the patient): Male Spiritual care concerns: No Exam Const: Limitations: physical limitations and other limitations (Dementia, nonverbal) Other: Patient in severe distress, ill-appearing HENMT: Head: normal to inspection, normocephalic and atraumatic Ears: hearing grossly normal bilaterally, TM normal on the right and TM normal on the left General nose exam: Normal external nose present, Normal nares present and No nasal discharge present Face and sinus: normal facial exam Mouth: Yes Normal oral and palatal mucosa present, Yes lip normal, Yes tongue normal and Yes oropharynx normal Throat: posterior oropharynx normal, tonsils normal and uvula midline Eyes: General: appearance normal, both eyes and all related structures Pupils: Equal, round and reactive pupils present EOM: EOMs intact bilaterally Neck: Neck: normal visual inspection, full ROM, no lymphadenopathy and no meningeal signs Chest: Chest palpation & inspection: normal inspection of the chest Resp: Other: Severe respiratory distress, tachypneic, Rales throughout, rhonchi throughout decreased breath sounds bilat
[2020-09-25 09:27] LABS: Alveolar/Arterial O2 Gradient 449.2 mmHg; Base Excess ABG -9.3 mEq/l (+/-2.0); Carboxyhemoglobin 0.4 % THb (0-2.0); Fractional Inspired Oxygen 100 %; HCO3 ABG 15.1 mEq/l (22.0-26.0); Methemoglobin ABG 0.4 %THb (0-1.5); Oxygen Content ABG 20.3 %vol (16.0-22.0); Oxygen Saturation ABG 99.5 % (95.0-100.0); Oxyhemoglobin 98.2 % THb (90.0-100.0); PCO2 ABG 29.3 mmHg (35.0-45.0); PO2 ABG 234.5 mmHg (80.0-100.0); PO2 FiO2 Ratio Arterial Blood 2.35 %; Total Hemoglobin 14.3 g/dL (12.0-18.0)
[2020-09-25 09:28] LABS: Device NON-REBREATHER MASK; Modified Allen's Test Unable to perform; Site Drawn RIGHT RADIAL
[2020-09-25 09:30] LABS: Basophils Percent Auto 0.1 % (0.2-1.2); Hematocrit 44.6 % (42.0-52.0); Hemoglobin 14.3 g/dL (14.0-18.0); Immature Granulocyte Absolute 0.08 K/mm3 (0.00-0.031); Immature Granulocyte Percent A 0.6 % (0-0.5); Lymphocytes Absolute Auto 0.64 K/mm3 (0.9-3.2); Lymphocytes Percent Auto 4.6 % (18.3-44.2); Mean Corpuscular HGB Conc 32.1 g/dl (32-36); Mean Corpuscular Hemoglobin 31.5 pg (26-34); Mean Corpuscular Volume 98.2 fl (80-100); Mean Platelet Volume 10.4 fl (7.4-10.4); Monocytes Absolute Auto 0.9 K/mm3 (0.1-0.6); Monocytes Percent Auto 6.2 % (2.6-8.5); Neutrophils Absolute Auto 12.3 K/mm3 (1.3-6.7); Neutrophils Percent Auto 88.5 % (45.5-73.1); Nucleated Red Blood Cells Absolute Auto 0.1 K/mm3 (0.0-0.012); Platelet Count Result 350 k/mm3 (150-375); Red Blood Count 4.54 M/mm3 (4.6-6.20); Red Cell Distribution Width 17.5 % (11.5-14.5); White Blood Count 13.9 K/mm3 (4.5-10.0)
[2020-09-25 09:38] LABS: Lactic Acid Reflex 1.9 mmol/L (0.7-2.1)
[2020-09-25] MEDS: SODIUM CHLORIDE 0.9% IV 500 ML (09:38)
[2020-09-25 09:39] LABS: INR 1.7; Prothrombin Time 19.8 Seconds (11.1-14.7)
[2020-09-25 09:40] LABS: Partial Thromboplastin Time 30.4 SECONDS (22.3-36.8)
[2020-09-25 09:45] LABS: Add Urine Microscopic? YES; Appearance Urine Cloudy (Clear); Bacteria Urine Trace /hpf; Bilirubin Urine Negative (Negative); Blood Urine Negative (Negative); Color Urine Amber (Yellow); Glucose Urine UA Negative (Negative); Hyaline Casts Urine 50+ /lpf; Ketones Urine Negative (Negative); Leukocyte Esterase Ur 1+ LEU/UL (Negative); Mucus Urine Rare /lpf; Nitrate Urine Negative (Negative); Protein Urine 1+ mg/dL (Negative); Specific Grav Ur 1.024 (1.001-1.035); Squamous Epithelial Cell Urine Occasional /hpf (Few); Urobilinogen Urine Negative mg/dL (<2.0); WBC Urine 21-30 /hpf
[2020-09-25 09:50] LABS: Alanine Aminotransferase 81 U/L (4-50); Albumin Level 3.2 g/dL (3.5-5.1); Alkaline Phosphatase 149 U/L (38-126); Anion Gap 19 mmol/L (8-16); Aspartate Amino Transferase 101 U/L (17-59); Bilirubin,Total 0.8 mg/dL (0.2-1.3); Calcium 8.3 mg/dL (8.4-10.2); Carbon Dioxide 17 mmol/L (22-30); Chloride 103 mmol/L (98-107); Glucose 96 mg/dL (75-110); Potassium 5.3 mmol/L (3.4-5.0); Sodium 139 mmol/L (137-145)
[2020-09-25] MEDS: SODIUM CHLORIDE 0.9% IV 1,000 ML 1000 ML (09:58)
--- NOTE | 2020-09-25 09:58 | PC.NURSE ---
patient given 1000ml bolus at this time per EDP verbal order.
--- NOTE | 2020-09-25 10:03 | PC.NURSE ---
LASHONDA called without answer at this time. Left message to please return call.
[2020-09-25 10:20] LABS: D Dimer 4.54 ug/mL (<0.48)
[2020-09-25 10:21] LABS: CRP 17.4 mg/dL (<1.0); Estimated CRCL calculation 8 ml/min; Estimated Glomerular Filt Rate 9
[2020-09-25 10:33] LABS: Blood Urea Nitrogen 136 mg/dL (9-20)
--- NOTE | 2020-09-25 11:10 | PC.NURSE ---
EDP at bedside for central line placement at this time. Consent obtained by two RN verification method prior to procedure.
[2020-09-25] MEDS: SODIUM CHLORIDE 0.9% IV 500 ML 999 ML (11:28)
--- NOTE | 2020-09-25 11:28 | PC.NURSE ---
Levophed started per EDP verbal order at this time at 7.5mcg/min
--- NOTE | 2020-09-25 11:49 | PC.NURSE ---
Addendum entered by Edgar Whipple RN 09/25/20 12:07: Levophed initially started at 4mcg/min or 7.5ml/hr. Rate now 7mcg/min. Original Note: Levophed drip increased to 7mcg/min. Current blood pressure 76/60.
[2020-09-25] MEDS: NOREPINEPHRINE 8 MG/D5W 250 ML 8 MG/250 ML BAG 13.13 MG IV CONT (12:00)
[2020-09-25] MEDS: DEXTROSE 50% 25 GM/50 ML SYRINGE IV PUSH (12:40)
[2020-09-25] MEDS: INSULIN HUMAN REGULAR (*BKC) 100 UNITS/ML 8 UNITS IV PUSH (12:41)
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
--- NOTE | 2020-09-25 13:45 | ADMGEN ---
This patient, Rich Elliott, was admitted to Intensive Care Unit-2. Patient/family oriented to hospital policies and general routines including ID bracelet, bed and alarms, visiting hours, pain management, procedures, bathroom and other care routines, personal items, smoking policy, room service/diet, and visiting hours. Information on how to activate the Rapid Response Team has been discussed. Patient/Family are encouraged to report perceived risks to care and to ask questions if they do not understand what they are told or what they should do.
[2020-09-25] MEDS: IPRATROPIUM BR 0.02% INH SOLN 0.5 MG/2.5 ML VIAL INHALATION ×2 (14:03→19:59)
[2020-09-25] MEDS: ALBUTEROL SULFATE NEB 2.5 MG/0.5 ML INH INHALATION ×2 (14:03→19:58)
--- NOTE | 2020-09-25 14:15 | WPDCNINT ---
Assessment and Plan Assessment and plan (1) Acute hypercapnic respiratory failure: Code(s): J96.02 - Acute respiratory failure with hypercapnia Status: Acute Assessment and Plan: patient presented with shortness of breath with dosing, chest x-ray revealed a large left-sided pleural effusion - off note patient was admitted from 09/09/2020 to 09/19/2020 with similar complains of left sided pleural effusion requiring multiple thoracenteses with removal of total of 6 L. - pathology of the pleural fluid at that time showed few atypical cells suspicious for neoplasm - patient was supposed to follow-up and [facility] with thoracic surgery - chest x-ray again on admission this time shows large left-sided pleural effusion - will have interventional radiology perform thoracentesis with ultrasound guidance - have placed orders for fluid analysis - patient could have underlying pneumonia given elevated white cell count, septic shock - started patient on cefepime and vancomycin - continue BiPAP, currently on 30% FiO2 (2) Pleural effusion: Code(s): J90 - Pleural effusion, not elsewhere classified Status: Acute Assessment and Plan: recurrent large left-sided pleural effusion - treatment as above (3) Septic shock: Code(s): A41.9 - Sepsis, unspecified organism; R65.21 - Severe sepsis with septic shock Status: Acute Assessment and Plan: acute respiratory failure, acute on chronic kidney injury, hypotension - source could be pneumonia, UTI - left IJ central line in place - continue Levophed, maintain mean arterial pressures greater than 65 mmHg for adequate end organ perfusion - continue antibiotics as above - continue maintenance IV fluids with sodium bicarbonate (4) Acute renal failure superimposed on chronic kidney disease: Qualifiers: Acute renal failure type: unspecified Chronic kidney disease stage: unspecified stage Qualified Code(s): N17.9 - Acute kidney failure, unspecified; N18.9 - Chronic kidney disease, unspecified Code(s): N17.9 - Acute kidney failure, unspecified; N18.9 - Chronic kidney disease, unspecified Status: Acute Assessment and Plan: acute on chronic kidney disease, could be related to septic shock, hypotension, infection, patient also on Lasix at home which could have contributed to the acute kidney injury - patient has received adequate amount of IV fluid - will switch IV fluids to sodium bicarbonate - continue to monitor urine output, renal function and electrolytes - check renal ultrasound and urine lytes (5) Acute hyperkalemia: Code(s): E87.5 - Hyperkalemia Status: Acute Assessment and Plan: hyperkalemia likely related to acute kidney injury - patient given IV fluids, will recheck BMP this evening (6) Dementia: Code(s): F03.90 - Unspecified dementia without behavioral disturbance Status: Chronic Assessment and Plan: chronic (7) Chronic GERD: Code(s): K21.9 - Gastro-esophageal reflux disease without esophagitis Status: Chronic Assessment and Plan: continue Protonix (8) Atrial fibrillation: Code(s): I48.91 - Unspecified atrial fibrillation Status: Chronic Assessment and Plan: patient has a history of atrial fibrillation not on any anticoagulation - initially patient was AFib RVR, currently rate controlled after IV fluids - continue to monitor (9) Seizure disorder: Code(s): G40.909 - Epilepsy, unspecified, not intractable, without status epilepticus Status: Chronic Assessment and Plan: continue Keppra IV (10) DVT prophylaxis: Code(s): Z29.9 - Encounter for prophylactic measures, unspecified Status: Acute Assessment and Plan: SCDs Additional Plan tried calling the daughter Marychuy, left a message. Code status: Do not resuscitate critical care time spent: 46 minutes This dictatio
[2020-09-25] MEDS: hetaSTARCH 6%/NACL 500 ML 250 ML IV CONT (14:35)
[2020-09-25] MEDS: SODIUM BICARBONATE 8.4% 50 MEQ/50 ML SYRINGE 100 MEQ IV PUSH (14:36)
[2020-09-25] MEDS: CENTRAL LINE FLUSH 10 ML IV PUSH ×3 (14:49→21:03)
[2020-09-25 16:04] LABS: Creatinine Urine 268.7 mg/dL
[2020-09-25 16:14] LABS: Eosinophil Urine None Seen % (None Seen); Potassium Urine Random 65.1 meq/L; Sodium Urine Random 14 meq/L
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
[2020-09-25] MEDS: SODIUM BICARBONATE 8.4% 150 MEQ in DEXTROSE 5% 1,000 ML 950 ML 100 MEQ IV CONT (16:34)
[2020-09-25 16:47] LABS: pH Pleural Fluid 7.246 (7.210-7.500)
[2020-09-25 17:27] LABS: Lactate Dehydrogenase 654 U/L (313-618)
[2020-09-25 18:06] LABS: Appearance Pleural Fluid Bloody (Clear); Color Pleural Fluid Red (Colorless); Lymphocytes Pleural Fluid 74 %; Macrophages Pleural Fluid 4 %; Monocytes Pleural Fluid 9 %; Neutrophils Pleural Fluid 13 % (0-25); Nucleated Cell Pleural Fluid 110 /uL (0-1000); Pleural fluid source Pleural fluid; RBC Pleural Fluid 19841 /uL (0-0)
[2020-09-25] MEDS: levETIRAcetam IV 750 MG in DEXTROSE 5% 100 ML 200 MG IVPB (18:25)
[2020-09-25] MEDS: PANTOPRAZOLE SODIUM IV 40 MG VIAL IV PUSH (21:03)
[2020-09-26] VITALS (36 sets, daily range): BP systolic 71–194; BP diastolic 50–96; PULSE 87–111; RESP 14–24; TEMP 36.2–36.6; O2SAT 94–98; BMI 23.5
[2020-09-26] MEDS: IPRATROPIUM BR 0.02% INH SOLN 0.5 MG/2.5 ML VIAL INHALATION ×4 (01:43→20:12)
[2020-09-26] MEDS: ALBUTEROL SULFATE NEB 2.5 MG/0.5 ML INH INHALATION ×4 (01:44→20:12)
[2020-09-26] MEDS: NOREPINEPHRINE 8 MG/D5W 250 ML 8 MG/250 ML BAG 16.88 MG IV CONT (02:29)
[2020-09-26] MEDS: SODIUM BICARBONATE 8.4% 150 MEQ in DEXTROSE 5% 1,000 ML 950 ML 100 MEQ IV CONT ×2 (02:29→16:46)
[2020-09-26] MEDS: CENTRAL LINE FLUSH 10 ML IV PUSH ×4 (04:07→19:54)
[2020-09-26 04:31] LABS: Basophils Percent Auto 0.1 % (0.2-1.2); Eosinophils Percent Auto 0.1 % (0-4.4); Hematocrit 33.8 % (42.0-52.0); Hemoglobin 11.2 g/dL (14.0-18.0); Immature Granulocyte Absolute 0.06 K/mm3 (0.00-0.031); Immature Granulocyte Percent A 0.6 % (0-0.5); Lymphocytes Absolute Auto 0.39 K/mm3 (0.9-3.2); Lymphocytes Percent Auto 3.7 % (18.3-44.2); Mean Corpuscular HGB Conc 33.1 g/dl (32-36); Mean Corpuscular Hemoglobin 31.1 pg (26-34); Mean Corpuscular Volume 93.9 fl (80-100); Mean Platelet Volume 10.1 fl (7.4-10.4); Monocytes Absolute Auto 0.6 K/mm3 (0.1-0.6); Monocytes Percent Auto 5.5 % (2.6-8.5); Neutrophils Absolute Auto 9.4 K/mm3 (1.3-6.7); Nucleated Red Blood Cells Absolute Auto 0.1 K/mm3 (0.0-0.012); Nucleated Red Blood Cells Perc 0.7 % (0.0-0.2); Platelet Count Result 269 k/mm3 (150-375); Red Cell Distribution Width 16.4 % (11.5-14.5); White Blood Count 10.5 K/mm3 (4.5-10.0)
[2020-09-26 05:14] LABS: Alanine Aminotransferase 52 U/L (4-50); Albumin Level 2.2 g/dL (3.5-5.1); Alkaline Phosphatase 110 U/L (38-126); Anion Gap 12 mmol/L (8-16); Aspartate Amino Transferase 60 U/L (17-59); Bilirubin,Total 0.5 mg/dL (0.2-1.3); CRP 14.1 mg/dL (<1.0); Calcium 6.8 mg/dL (8.4-10.2); Carbon Dioxide 25 mmol/L (22-30); Chloride 101 mmol/L (98-107); Estimated CRCL calculation 8 ml/min; Estimated Glomerular Filt Rate 9; Glucose 159 mg/dL (75-110); Lactate Dehydrogenase 739 U/L (313-618); Magnesium 2.8 mg/dL (1.6-2.3); Potassium 3.4 mmol/L (3.4-5.0); Sodium 138 mmol/L (137-145)
[2020-09-26 05:15] LABS: Blood Urea Nitrogen 124 mg/dL (9-20)
--- NOTE | 2020-09-26 08:10 | WPDINTPN ---
Progress Note: A&P Assessment and Plan (1) Acute respiratory failure with hypoxia and hypercapnia: Code(s): J96.01 - Acute respiratory failure with hypoxia; J96.02 - Acute respiratory failure with hypercapnia Status: Acute Assessment and Plan: patient presented with shortness of breath with dosing, chest x-ray revealed a large left-sided pleural effusion - off note patient was admitted from 09/09/2020 to 09/19/2020 with similar complains of left sided pleural effusion requiring multiple thoracenteses with removal of total of 6 L. - pathology of the pleural fluid at that time showed few atypical cells suspicious for neoplasm - patient was supposed to follow-up at [facility] with thoracic surgery - chest x-ray again on admission this time shows large left-sided pleural effusion - 09/25/2020 ultrasound-guided thoracentesis with removal of 1200 mL of red fluid - patient could have underlying pneumonia given elevated white cell count, septic shock - continue cefepime and vancomycin - continue BiPAP, currently on 30% FiO2 (2) Pleural effusion: Code(s): J90 - Pleural effusion, not elsewhere classified Status: Acute Assessment and Plan: recurrent large left-sided pleural effusion - 09/25/2020 ultrasound-guided thoracentesis with removal of 1200 mL of red fluid (3) Septic shock: Code(s): A41.9 - Sepsis, unspecified organism; R65.21 - Severe sepsis with septic shock Status: Acute Assessment and Plan: acute respiratory failure, acute on chronic kidney injury, hypotension - source could be pneumonia, UTI - left IJ central line in place - continue Levophed, maintain mean arterial pressures greater than 65 mmHg for adequate end organ perfusion - continue antibiotics as above - continue maintenance IV fluids with sodium bicarbonate (4) Acute renal failure superimposed on chronic kidney disease: Qualifiers: Acute renal failure type: unspecified Chronic kidney disease stage: unspecified stage Qualified Code(s): N17.9 - Acute kidney failure, unspecified; N18.9 - Chronic kidney disease, unspecified Code(s): N17.9 - Acute kidney failure, unspecified; N18.9 - Chronic kidney disease, unspecified Status: Acute Assessment and Plan: acute on chronic kidney disease, could be related to septic shock, hypotension, infection, patient also on Lasix at home which could have contributed to the acute kidney injury - patient has received adequate amount of IV fluid - continue to monitor urine output, renal function and electrolytes - 09/25/2020: renal ultrasound did not show any stones, masses or hydronephrosis - Urine lytes likely prerenal, patient has received adequate amount of IV fluids, will continue to monitor - nephrology following the patient (5) Acute hyperkalemia: Code(s): E87.5 - Hyperkalemia Status: Acute Assessment and Plan: RESOLVED (6) Dementia: Code(s): F03.90 - Unspecified dementia without behavioral disturbance Status: Chronic Assessment and Plan: chronic (7) Chronic GERD: Code(s): K21.9 - Gastro-esophageal reflux disease without esophagitis Status: Chronic Assessment and Plan: continue Protonix (8) Atrial fibrillation: Code(s): I48.91 - Unspecified atrial fibrillation Status: Chronic Assessment and Plan: patient has a history of atrial fibrillation not on any anticoagulation - initially patient was AFib RVR, currently rate controlled after IV fluids - continue to monitor (9) Seizure disorder: Code(s): G40.909 - Epilepsy, unspecified, not intractable, without status epilepticus Status: Chronic Assessment and Plan: continue Keppra IV (10) DVT prophylaxis: Code(s): Z29.9 - Encounter for prophylactic measures, unspecified Status: Acute Assessment and Plan: SCDs Additional Plan discuss with Ebonie
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
[2020-09-26] MEDS: PANTOPRAZOLE SODIUM IV 40 MG VIAL IV PUSH ×2 (08:38→19:54)
[2020-09-26] MEDS: levETIRAcetam IV 750 MG in DEXTROSE 5% 100 ML 200 MG IVPB (08:38)
[2020-09-26 08:41] LABS: Free T4 Free Thyroxine Reflex 0.67 ng/dL (0.78-2.19)
--- NOTE | 2020-09-26 10:54 | PM.IMPN ---
Progress Note: A&P Assessment and Plan (1) Acute respiratory failure with hypoxia: Code(s): J96.01 - Acute respiratory failure with hypoxia Status: Acute Assessment and Plan: The patient presents in acute respiratory failure. ABG 7.33/29/234 on NRB. CXR showing persistent large left pleural effusion. Patient was just here and had thoracentesis 6 times without resolution of the pleural effusion but was able to have him down to 2L NC prior to discharge. The patient is a DNR. He remains stable on BiPAP. Wean BiPAP to NC as possible. Pulmonary following. Continue nebulizer treatments. (2) Septic shock: Code(s): A41.9 - Sepsis, unspecified organism; R65.21 - Severe sepsis with septic shock Status: Acute Assessment and Plan: BP 65/51 on admission. Central line placed and pressors started. Bryan possible septic shock from PNA? or infected pleural space? or another source but he just completed a course of broad spectrum abx last admission. WBC 14K on admission but no fevers. Suspect more likely that he has HoTN from large pleural effusion and mediastinal shift with compression of the heart and great vessels. The patient is on Levophed and this is being weaned as BP tolerates. He may need repeat thoracentesis to improve this. Continue with Cefepime and Vanco. Pleural fluid showing many WBC but no MO (but bloody with 19K RBC and 110 WBC). Cultures are pending. (3) Acute renal failure superimposed on chronic kidney disease: Qualifiers: Acute renal failure type: unspecified Chronic kidney disease stage: unspecified stage Qualified Code(s): N17.9 - Acute kidney failure, unspecified; N18.9 - Chronic kidney disease, unspecified Code(s): N17.9 - Acute kidney failure, unspecified; N18.9 - Chronic kidney disease, unspecified Status: Acute Assessment and Plan: The patient's creatinine was 5.9 on admission. Baseline Cr around 1.7. Renal ultrasound on 09/10/2020 with mildly atrophy of left kidney. No hydronephrosis. Probably ATN from hypoperfusion. Nephrology consulted and appreciate their input. (4) Acute hyperkalemia: Code(s): E87.5 - Hyperkalemia Status: Acute Assessment and Plan: Mild hyperkalemia with potassium at 5.3. Resolved now. Follow. (5) Atrial fibrillation: Code(s): I48.91 - Unspecified atrial fibrillation Status: Chronic Assessment and Plan: The patient with chronic atrial fibrillation. He is not on mcfp anticoagulated. Was tachycardic on admisison but felt related to the HoTN and/or mediastinal shift. Rate better with rehydration. (6) Seizure disorder: Code(s): G40.909 - Epilepsy, unspecified, not intractable, without status epilepticus Status: Chronic Assessment and Plan: Patient is on Keppra chronically the longterm. Keppra has been switched to IV form. (7) Pleural effusion: Code(s): J90 - Pleural effusion, not elsewhere classified Status: Acute Assessment and Plan: Patient has a large left pleural effusion of unclear etiology. He has undergone multiple thoracentesis without much change in the CXR findings. Path showing atypical cells but too few of cells to make a definite diagnosis. Appeared to be Exudative last admission. Unclear on duration of these findings but subtle airspace opacity in the JULIET seen by CXR 01/01/18. Dtr wants to continue treatment. Discussed with Olman last admission but patient was doing well at that time so they recommended outpatient evaluation. Patient will need to be transferred once more stable. Toelrated the thoracentesis on 09/25. (8) Dementia: Code(s): F03.90 - Unspecified dementia without behavioral disturbance Status: Chronic Assessment and Plan: Patient with chronic dementia. His orientation did wax/wane last admission. Namenda and Aricept on hold. (9) DVT prophylaxis: Code
--- NOTE | 2020-09-26 11:25 | PCNSR ---
On 09/26/20, the student, Magaly Estrada, provided care and completed [facility] documentation on this patient. I have reviewed the student's documentation and agree with the findings.
[2020-09-26] MEDS: SILVERGEL (ELTA) 45 ML 1 APPLIC TOPICAL (11:39)
[2020-09-26 16:19] LABS: Eosinophil Urine None Seen % (None Seen)
--- NOTE | 2020-09-26 18:30 | PC.NURSE ---
pt had episodes of b/p all of a sudden going into the 200's, levophed going at 7, adjusted, switched out b/p cuffs, no changes in blood pressures, turned off levo and attempts to inform dr. Knapp, continues to have b/p bounces high to sbp in 100's
[2020-09-26] MEDS: levETIRAcetam IV 750 MG in DEXTROSE 5% 100 ML 430 MG IVPB (19:52)
[2020-09-26] MEDS: HEPARIN SODIUM 5,000 UNITS/ML VIAL 5000 UNITS SUB-Q (19:54)
[2020-09-27] VITALS (30 sets, daily range): BP systolic 78–157; BP diastolic 61–91; PULSE 88–132; RESP 11–27; TEMP 36.1–36.7; O2SAT 91–98
[2020-09-27] MEDS: SODIUM BICARBONATE 8.4% 150 MEQ in DEXTROSE 5% 1,000 ML 950 ML 100 MEQ IV CONT (01:46)
[2020-09-27] MEDS: NOREPINEPHRINE 8 MG/D5W 250 ML 8 MG/250 ML BAG 26.25 MG IV CONT ×2 (01:47→11:55)
[2020-09-27] MEDS: IPRATROPIUM BR 0.02% INH SOLN 0.5 MG/2.5 ML VIAL INHALATION ×4 (02:37→20:37)
[2020-09-27] MEDS: ALBUTEROL SULFATE NEB 2.5 MG/0.5 ML INH INHALATION ×4 (02:37→20:37)
[2020-09-27 03:38] LABS: Creatine Kinase 272 U/L (55-170)
[2020-09-27] MEDS: CENTRAL LINE FLUSH 10 ML IV PUSH ×3 (04:53→21:37)
[2020-09-27 05:14] LABS: Basophils Percent Auto 0.1 % (0.2-1.2); Eosinophils Percent Auto 0.3 % (0-4.4); Hematocrit 36.8 % (42.0-52.0); Hemoglobin 11.9 g/dL (14.0-18.0); Immature Granulocyte Absolute 0.05 K/mm3 (0.00-0.031); Immature Granulocyte Percent A 0.5 % (0-0.5); Lymphocytes Absolute Auto 0.41 K/mm3 (0.9-3.2); Lymphocytes Percent Auto 3.7 % (18.3-44.2); Mean Corpuscular HGB Conc 32.3 g/dl (32-36); Mean Corpuscular Hemoglobin 31.3 pg (26-34); Mean Corpuscular Volume 96.8 fl (80-100); Mean Platelet Volume 10.3 fl (7.4-10.4); Monocytes Absolute Auto 0.5 K/mm3 (0.1-0.6); Monocytes Percent Auto 4.4 % (2.6-8.5); Nucleated Red Blood Cells Perc 0.4 % (0.0-0.2); Platelet Count Result 253 k/mm3 (150-375); Red Cell Distribution Width 17.2 % (11.5-14.5)
[2020-09-27 05:26] LABS: Alanine Aminotransferase 56 U/L (4-50); Albumin Level 2.5 g/dL (3.5-5.1); Alkaline Phosphatase 113 U/L (38-126); Anion Gap 10 mmol/L (8-16); Aspartate Amino Transferase 61 U/L (17-59); Bilirubin,Total 0.6 mg/dL (0.2-1.3); Blood Urea Nitrogen 121 mg/dL (9-20); Calcium 6.6 mg/dL (8.4-10.2); Carbon Dioxide 31 mmol/L (22-30); Chloride 99 mmol/L (98-107); Estimated CRCL calculation 9 ml/min; Estimated Glomerular Filt Rate 10; Glucose 157 mg/dL (75-110); Magnesium 2.7 mg/dL (1.6-2.3); Potassium 3.4 mmol/L (3.4-5.0); Sodium 140 mmol/L (137-145)
[2020-09-27 06:12] LABS: Vancomycin Random 17.5 ug/mL (10-20)
[2020-09-27] MEDS: SILVERGEL (ELTA) 45 ML 1 APPLIC TOPICAL (09:13)
[2020-09-27] MEDS: HEPARIN SODIUM 5,000 UNITS/ML VIAL 5000 UNITS SUB-Q ×2 (09:14→21:37)
[2020-09-27] MEDS: PANTOPRAZOLE SODIUM IV 40 MG VIAL IV PUSH ×2 (09:17→21:37)
[2020-09-27] MEDS: levETIRAcetam IV 750 MG in DEXTROSE 5% 100 ML 430 MG IVPB (09:31)
--- NOTE | 2020-09-27 10:25 | PM.PNNEP ---
Progress Note: A&P Assessment and Plan (1) Acute kidney failure, unspecified: Code(s): N17.9 - Acute kidney failure, unspecified Status: Acute Assessment and Plan: the patient has acute kidney injury. Urine electrolytes are pre renal. renal ultrasound is negative. Urine eosinophils are negative his blood pressure is still low and he is on norepinephrine 14 mics. IV fluids were discontinued because he has swelling. most likely pre renal azotemia is due to his low blood pressure and pressors. His creatinine is marginally better and he made some urine yesterday. (2) Septic shock: Code(s): A41.9 - Sepsis, unspecified organism; R65.21 - Severe sepsis with septic shock Status: Acute Assessment and Plan: The patient is on broad-spectrum antibiotics. He did have a few white cells in his urine. Blood and urine cultures are negative so far. (3) Acute hyperkalemia: Code(s): E87.5 - Hyperkalemia Status: Acute Assessment and Plan: potassium is better today (4) HTN (hypertension), benign: Code(s): I10 - Essential (primary) hypertension Status: Acute Assessment and Plan: antihypertensives are on hold. He is on pressors (5) Metabolic acidosis: Code(s): E87.2 - Acidosis Status: Acute Assessment and Plan: the patient had metabolic acidosis with anion gap. His anion gap and bicarbonate levels have all improved today. His CO2 level is up now. He is off the bicarb drip. (6) Pleural effusion: Code(s): J90 - Pleural effusion, not elsewhere classified Status: Acute Assessment and Plan: He had a thoracentesis yesterday. (7) Dementia: Code(s): F03.90 - Unspecified dementia without behavioral disturbance Status: Chronic Assessment and Plan: The patient is a DNR Subjective Date/time seen: 09/27/20 10:25 Interval history: Mr. Elliott looks a little bit better today. no longer on BiPAP mask. He regards examiner and answers yes no questions. He denies shortness of breath or pain. Exam Narrative: Exam Narrative: WDWN in NAD skin no rash head ncat lungs Decreased breath sounds at the bases cor reg no rub abd BS+ nontender and soft ext 2+ bilateral pre sacral edema. Objective Data Vital Signs Vital Signs: Vital Signs - 24 hr 09/26/20 10:34 09/26/20 12:00 09/26/20 13:13 Temperature 36.2 C L Pulse Rate 103 H 98 94 Respiratory Rate 19 18 18 Blood Pressure Pulse Oximetry 97 96 09/26/20 13:25 09/26/20 14:00 09/26/20 16:00 Temperature 36.4 C Pulse Rate 106 H 105 H 88 Respiratory Rate 17 18 22 H Blood Pressure 105/62 160/96 H Pulse Oximetry 96 96 09/26/20 18:00 09/26/20 19:18 09/26/20 19:42 Temperature Pulse Rate 107 H 97 102 H Respiratory Rate 22 H 21 H Blood Pressure 194/56 H 98/73 L 80/64 L Pulse Oximetry 98 95 09/26/20 19:49 09/26/20 20:00 09/26/20 20:04 Temperature 36.2 C L Pulse Rate 94 98 103 H Respiratory Rate 21 H Blood Pressure 71/50 L 89/58 L 89/58 L Pulse Oximetry 95 09/26/20 20:13 09/26/20 20:19 09/26/20 20:23 Temperature Pulse Rate 94 94 107 H Respiratory Rate 21 H 21 H 24 H Blood Pressure Pulse Oximetry 96 09/26/20 22:00 09/26/20 22:15 09/26/20 23:03 Temperature Pulse Rate 110 H 103 H 101 H Respiratory Rate 21 H 18 Blood Pressure 88/61 L 93/63 L 83/69 L Pulse Oximetry 96 94 09/26/20 23:11 09/26/20 23:16 09/27/20 00:00 Temperature 36.1 C L Pulse Rate 101 H 102 H 103 H Respiratory Rate 18 22 H 23 H Blood Pressure 101/87 103/87 Pulse Oximetry 96 96 96 09/27/20 01:00 09/27/20 01:47 09/27/20 02:00 Temperature Pulse Rate 98 105 H 92 Respiratory Rate 18 21 H Blood Pressure 115/69 93/66 L 97/75 L Pulse Oximetry 96 96 09/27/20 02:37 09/27/20 02:50 09/27/20 03:17 Temperature Pulse Rate 88 94 94 Respiratory Rate 21 H 20 20 Bloo
--- NOTE | 2020-09-27 11:21 | PCFNICU ---
ICU Rounding Note: Patient is still NPO and is going in for another thoracentesis later today. Patient is refusing BiPAP. Last recorded weight is 70.7kg. Slightly up from admission on 09/25, which was 70.1kg. Bowel Motility: Last documented on 09/26. Labs Reviewed:WBC(11.0), Hgb(11.9), Hct(36.8), Alb(2.5), BUN(121), Cr(5.4), Glu(157), Mg(2.7), PO4(7.0), Ca(7.8) Meds Noted:Albuterol, Atrovent, Protonix, Norepinephrine, Vancomycin HCl, Cefepime HCl Additional Notes: Patient is non-verbal. Recommend calcium replacement if medically appropriate. No changes in wounds reported. Following daily in ICU rounds. Assessing/reassessing every 3 days.
--- NOTE | 2020-09-27 11:34 | PCNSR ---
On 09/27/20, the student, Magaly Estrada, provided care and completed [facility] documentation on this patient. I have reviewed the student's documentation and agree with the findings.
--- NOTE | 2020-09-27 11:36 | WPDINTPN ---
Progress Note: A&P Assessment and Plan (1) Acute respiratory failure with hypoxia and hypercapnia: Code(s): J96.01 - Acute respiratory failure with hypoxia; J96.02 - Acute respiratory failure with hypercapnia Status: Acute Assessment and Plan: patient presented with shortness of breath with dosing, chest x-ray revealed a large left-sided pleural effusion - off note patient was admitted from 09/09/2020 to 09/19/2020 with similar complains of left sided pleural effusion requiring multiple thoracenteses with removal of total of 6 L. - pathology of the pleural fluid at that time showed few atypical cells suspicious for neoplasm - patient was supposed to follow-up at [facility] with thoracic surgery - chest x-ray again on admission this time shows large left-sided pleural effusion - 09/25/2020 ultrasound-guided thoracentesis with removal of 1200 mL of red fluid - patient could have underlying pneumonia given elevated white cell count, septic shock - continue cefepime and vancomycin - patient in 1-2 L nasal cannula with adequate O2 sats. - Will have interventional radiology perform ultrasound-guided thoracentesis again today (2) Pleural effusion: Code(s): J90 - Pleural effusion, not elsewhere classified Status: Acute Assessment and Plan: recurrent large left-sided pleural effusion - 09/25/2020 ultrasound-guided thoracentesis with removal of 1200 mL of red fluid - repeat thoracentesis again today by intervention radiology (3) Septic shock: Code(s): A41.9 - Sepsis, unspecified organism; R65.21 - Severe sepsis with septic shock Status: Acute Assessment and Plan: acute respiratory failure, acute on chronic kidney injury, hypotension - source could be pneumonia, UTI - left IJ central line in place - continue Levophed, maintain mean arterial pressures greater than 65 mmHg for adequate end organ perfusion - continue antibiotics as above - continue maintenance IV fluids with sodium bicarbonate (4) Acute renal failure superimposed on chronic kidney disease: Qualifiers: Acute renal failure type: unspecified Chronic kidney disease stage: unspecified stage Qualified Code(s): N17.9 - Acute kidney failure, unspecified; N18.9 - Chronic kidney disease, unspecified Code(s): N17.9 - Acute kidney failure, unspecified; N18.9 - Chronic kidney disease, unspecified Status: Acute Assessment and Plan: acute on chronic kidney disease, could be related to septic shock, hypotension, infection, patient also on Lasix at home which could have contributed to the acute kidney injury - patient has received adequate amount of IV fluid - continue to monitor urine output, renal function and electrolytes - 09/25/2020: renal ultrasound did not show any stones, masses or hydronephrosis - Urine lytes likely prerenal, patient has received adequate amount of IV fluids, will continue to monitor - nephrology following the patient (5) Acute hyperkalemia: Code(s): E87.5 - Hyperkalemia Status: Acute Assessment and Plan: RESOLVED (6) Dementia: Code(s): F03.90 - Unspecified dementia without behavioral disturbance Status: Chronic Assessment and Plan: chronic (7) Chronic GERD: Code(s): K21.9 - Gastro-esophageal reflux disease without esophagitis Status: Chronic Assessment and Plan: continue Protonix (8) Atrial fibrillation: Code(s): I48.91 - Unspecified atrial fibrillation Status: Chronic Assessment and Plan: patient has a history of atrial fibrillation not on any anticoagulation - initially patient was AFib RVR, currently rate controlled after IV fluids - continue to monitor (9) Seizure disorder: Code(s): G40.909 - Epilepsy, unspecified, not intractable, without status epilepticus Status: Chronic Assessment and Plan: continue Keppra IV (10) DVT prophylaxis: Co
[2020-09-27 12:15] LABS: INR 1.7; Prothrombin Time 19.4 Seconds (11.1-14.7)
--- NOTE | 2020-09-27 12:43 | PM.IMPN ---
Progress Note: A&P Assessment and Plan (1) Acute respiratory failure with hypoxia: Code(s): J96.01 - Acute respiratory failure with hypoxia Status: Acute Assessment and Plan: The patient presents in acute respiratory failure. ABG 7.33/29/234 on NRB. CXR showing persistent large left pleural effusion. The patient is a DNR. Was able to be weaned off BiPAP down to 1L NC. Pulmonary following. Continue nebulizer treatments. (2) Septic shock: Code(s): A41.9 - Sepsis, unspecified organism; R65.21 - Severe sepsis with septic shock Status: Acute Assessment and Plan: BP 65/51 on admission. Central line placed and pressors started. [place] possible septic shock from PNA? or infected pleural space? or another source but he just completed a course of broad spectrum abx last admission. WBC 14K on admission but no fevers. Suspect more likely that he has HoTN from large pleural effusion and mediastinal shift with compression of the heart and great vessels. The patient is on Levophed and this was being weaned but higher requirement today. He may need serial thoracentesis to improve this; plan for thoracentesis today. Pleural fluid culture showing no growth. BCx NGTD. Continue with Cefepime and Vanco. (3) Acute renal failure superimposed on chronic kidney disease: Qualifiers: Acute renal failure type: unspecified Chronic kidney disease stage: unspecified stage Qualified Code(s): N17.9 - Acute kidney failure, unspecified; N18.9 - Chronic kidney disease, unspecified Code(s): N17.9 - Acute kidney failure, unspecified; N18.9 - Chronic kidney disease, unspecified Status: Acute Assessment and Plan: The patient's creatinine was 5.9 on admission. Baseline Cr around 1.7. Renal ultrasound on 09/10/2020 with mildly atrophy of left kidney. No hydronephrosis. Probably ATN from hypoperfusion. Cr about the same at 5.4. Nephrology consulted and appreciate their input. (4) Acute hyperkalemia: Code(s): E87.5 - Hyperkalemia Status: Acute Assessment and Plan: Mild hyperkalemia with potassium at 5.3. Resolved now. Follow. (5) Atrial fibrillation: Code(s): I48.91 - Unspecified atrial fibrillation Status: Chronic Assessment and Plan: The patient with chronic atrial fibrillation. 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 Was tachycardic on admisison but felt related to the HoTN and/or mediastinal shift. Heart rate still elevated at times. Follow. (6) Seizure disorder: Code(s): G40.909 - Epilepsy, unspecified, not intractable, without status epilepticus Status: Chronic Assessment and Plan: Patient is on Keppra chronically the correction. Keppra has been switched to IV form. CrCl 8 so will decrease Keppra dose. (7) Pleural effusion: Code(s): J90 - Pleural effusion, not elsewhere classified Status: Acute Assessment and Plan: Patient has a large left pleural effusion of unclear etiology. He has undergone multiple thoracentesis without much change in the CXR findings. Path showing atypical cells but too few of cells to make a definite diagnosis. Appeared to be Exudative last admission. Unclear on duration of these findings but subtle airspace opacity in the JULIET seen by CXR 01/01/18. Dtr wants to continue treatment so Pleurex Cath recommended. Will need to be transferred once more stable. Underwent thoracentesis 09/25/20 with 1.2L removed. Plan for repeat thoracentesis. (8) Dementia: Code(s): F03.90 - Unspecified dementia without behavioral disturbance Status: Chronic Assessment and Plan: Patient with chronic dementia. His orientation did wax/wane last admission. Namenda and Aricept on hold. Resume when able. (9) DVT prophylaxis: Code(s): Z29.9 - Encounter for prophylactic measures, unspecified Status: Acute Assessment and Plan: Heparin Subj
[2020-09-27] MEDS: SODIUM BICARBONATE 8.4% 150 MEQ in DEXTROSE 5% 1,000 ML 950 ML 50 MEQ IV CONT (18:40)
[2020-09-27 19:54] LABS: Glucose Pleural Fluid 102 mg/dL; LDH Pleural Fluid 507 U/L; Total Protein Pleural Fluid 3.4 g/dL
[2020-09-27] MEDS: levETIRAcetam IV 250 MG in DEXTROSE 5% 100 ML 430 MG IVPB (21:37)
[2020-09-28] VITALS (27 sets, daily range): BP systolic 85–125; BP diastolic 58–92; PULSE 89–124; RESP 11–38; TEMP 36–36.4; O2SAT 89–98
[2020-09-28] MEDS: IPRATROPIUM BR 0.02% INH SOLN 0.5 MG/2.5 ML VIAL INHALATION ×4 (02:12→20:04)
[2020-09-28] MEDS: ALBUTEROL SULFATE NEB 2.5 MG/0.5 ML INH INHALATION ×3 (02:12→13:24)
[2020-09-28] MEDS: NOREPINEPHRINE 8 MG/D5W 250 ML 8 MG/250 ML BAG 9.38 MG IV CONT (03:54)
[2020-09-28] MEDS: CENTRAL LINE FLUSH 10 ML IV PUSH ×4 (05:04→20:19)
[2020-09-28 05:42] LABS: Hematocrit 35.2 % (42.0-52.0); Hemoglobin 11.2 g/dL (14.0-18.0); Mean Corpuscular HGB Conc 31.8 g/dl (32-36); Mean Corpuscular Hemoglobin 31.1 pg (26-34); Mean Corpuscular Volume 97.8 fl (80-100); Mean Platelet Volume 10.1 fl (7.4-10.4); Platelet Count Result 182 k/mm3 (150-375); Red Cell Distribution Width 17.1 % (11.5-14.5); White Blood Count 9.2 K/mm3 (4.5-10.0)
[2020-09-28 06:11] LABS: Alanine Aminotransferase 46 U/L (4-50); Albumin Level 2.4 g/dL (3.5-5.1); Alkaline Phosphatase 105 U/L (38-126); Anion Gap 9 mmol/L (8-16); Aspartate Amino Transferase 55 U/L (17-59); Bilirubin,Total 0.8 mg/dL (0.2-1.3); Calcium 6.3 mg/dL (8.4-10.2); Carbon Dioxide 33 mmol/L (22-30); Chloride 96 mmol/L (98-107); Estimated CRCL calculation 10 ml/min; Estimated Glomerular Filt Rate 12; Glucose 116 mg/dL (75-110); Phosphorus 6.4 mg/dL (2.5-4.5); Potassium 2.9 mmol/L (3.4-5.0); Sodium 138 mmol/L (137-145)
[2020-09-28 06:43] LABS: Vancomycin Random 16.1 ug/mL (10-20)
[2020-09-28] MEDS: levETIRAcetam IV 250 MG in DEXTROSE 5% 100 ML 430 MG IVPB ×2 (08:21→20:17)
[2020-09-28] MEDS: LACTATED RINGERS 1,000 ML 75 ML IV CONT ×2 (08:21→22:56)
[2020-09-28] MEDS: HEPARIN SODIUM 5,000 UNITS/ML VIAL 5000 UNITS SUB-Q (08:22)
[2020-09-28] MEDS: SILVERGEL (ELTA) 45 ML 1 APPLIC TOPICAL (08:22)
[2020-09-28] MEDS: PANTOPRAZOLE SODIUM IV 40 MG VIAL IV PUSH ×2 (08:22→20:19)
--- NOTE | 2020-09-28 08:47 | WPDINTPN ---
Progress Note: A&P Assessment and Plan (1) Acute respiratory failure with hypoxia and hypercapnia: Code(s): J96.01 - Acute respiratory failure with hypoxia; J96.02 - Acute respiratory failure with hypercapnia Status: Acute Assessment and Plan: patient presented with shortness of breath with dosing, chest x-ray revealed a large left-sided pleural effusion - off note patient was admitted from 09/09/2020 to 09/19/2020 with similar complains of left sided pleural effusion requiring multiple thoracenteses with removal of total of 6 L. - pathology of the pleural fluid at that time showed few atypical cells suspicious for neoplasm - patient was supposed to follow-up at [facility] with thoracic surgery - chest x-ray again on admission this time shows large left-sided pleural effusion - 09/25/2020 ultrasound-guided thoracentesis with removal of 1200 mL of red fluid - 09/27/2020 ultrasound-guided thoracentesis with removal of 1200 mL of reddish tiffany colored fluid - patient could have underlying pneumonia given elevated white cell count, septic shock - continue cefepime and vancomycin - patient in 1-2 L nasal cannula with adequate O2 sats. (2) Pleural effusion: Code(s): J90 - Pleural effusion, not elsewhere classified Status: Acute Assessment and Plan: recurrent large left-sided pleural effusion - 09/25/2020 ultrasound-guided thoracentesis with removal of 1200 mL of red fluid - 09/27/2020 ultrasound-guided thoracentesis with removal of 1200 mL of reddish tiffany colored fluid (3) Septic shock: Code(s): A41.9 - Sepsis, unspecified organism; R65.21 - Severe sepsis with septic shock Status: Acute Assessment and Plan: acute respiratory failure, acute on chronic kidney injury, hypotension - source could be pneumonia, UTI - left IJ central line in place - continue Levophed, maintain mean arterial pressures greater than 65 mmHg for adequate end organ perfusion - continue antibiotics as above - continue maintenance IV fluids with LR (4) Acute renal failure superimposed on chronic kidney disease: Qualifiers: Acute renal failure type: unspecified Chronic kidney disease stage: unspecified stage Qualified Code(s): N17.9 - Acute kidney failure, unspecified; N18.9 - Chronic kidney disease, unspecified Code(s): N17.9 - Acute kidney failure, unspecified; N18.9 - Chronic kidney disease, unspecified Status: Acute Assessment and Plan: acute on chronic kidney disease, could be related to septic shock, hypotension, infection, patient also on Lasix at home which could have contributed to the acute kidney injury - urine output improving and creatinine trending down - continue to monitor urine output, renal function and electrolytes - 09/25/2020: renal ultrasound did not show any stones, masses or hydronephrosis - Urine lytes likely prerenal, patient has received adequate amount of IV fluids, will continue to monitor - nephrology following the patient (5) Acute hyperkalemia: Code(s): E87.5 - Hyperkalemia Status: Acute Assessment and Plan: RESOLVED (6) Dementia: Code(s): F03.90 - Unspecified dementia without behavioral disturbance Status: Chronic Assessment and Plan: chronic (7) Chronic GERD: Code(s): K21.9 - Gastro-esophageal reflux disease without esophagitis Status: Chronic Assessment and Plan: continue Protonix (8) Atrial fibrillation: Code(s): I48.91 - Unspecified atrial fibrillation Status: Chronic Assessment and Plan: patient has a history of atrial fibrillation not on any anticoagulation - initially patient was AFib RVR, currently rate controlled after IV fluids - continue to monitor (9) Seizure disorder: Code(s): G40.909 - Epilepsy, unspecified, not intractable, without status epilepticus Status: Chronic Assessment and Plan: continue Kepp
--- NOTE | 2020-09-28 10:24 | PM.IMPN ---
Progress Note: A&P Assessment and Plan (1) Acute respiratory failure with hypoxia: Code(s): J96.01 - Acute respiratory failure with hypoxia Status: Acute Assessment and Plan: The patient presents in acute respiratory failure. ABG 7.33/29/234 on NRB. CXR showing persistent large left pleural effusion. The patient is a DNR. Was able to be weaned off BiPAP down to 1-2L NC. Continue nebulizer treatments. (2) Septic shock: Code(s): A41.9 - Sepsis, unspecified organism; R65.21 - Severe sepsis with septic shock Status: Acute Assessment and Plan: BP 65/51 on admission. Central line placed and pressors started. [place] possible septic shock from PNA? or infected pleural space? or another source but he just completed a course of broad spectrum abx last admission. WBC 14K on admission but no fevers. Suspect more likely that he has HoTN from large pleural effusion and mediastinal shift with compression of the heart and great vessels that is contributing to his SAAD and confusion. Pleural fluid showing many WBC but no MO (but bloody with 19K RBC and 110 WBC). Cultures are NGTD. The patient is on Levophed and this is being weaned as BP tolerates. Would recommend repeat thoracentesis to improve his cardiac hemodynamics. Continue with Cefepime and Vanco. (3) Acute renal failure superimposed on chronic kidney disease: Qualifiers: Acute renal failure type: unspecified Chronic kidney disease stage: unspecified stage Qualified Code(s): N17.9 - Acute kidney failure, unspecified; N18.9 - Chronic kidney disease, unspecified Code(s): N17.9 - Acute kidney failure, unspecified; N18.9 - Chronic kidney disease, unspecified Status: Acute Assessment and Plan: The patient's creatinine was 5.9 on admission. Baseline Cr around 1.7. Renal ultrasound on 09/10/2020 with mildly atrophy of left kidney. No hydronephrosis. Probably ATN from hypoperfusion and poor forward flow related to the large effusion. Thoracentesis yesterday and Cr better today at 4.5. Nephrology consulted and appreciate their input. (4) Electrolyte abnormality: Code(s): E87.8 - Other disorders of electrolyte and fluid balance, not elsewhere classified Status: Acute Assessment and Plan: Hypokalemic with potassium 2.9. Calcium also remains low at 6.3 (corrected 7.6). Phos elevated to 6.4 due to the SAAD/CKD. Potassium to be replaced. (5) Acute hyperkalemia: Code(s): E87.5 - Hyperkalemia Status: Acute Assessment and Plan: Mild hyperkalemia with potassium at 5.3. Resolved now. Follow. (6) Atrial fibrillation: Code(s): I48.91 - Unspecified atrial fibrillation Status: Chronic Assessment and Plan: The patient with chronic atrial fibrillation. 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 Was tachycardic on admission but felt related to the HoTN and/or mediastinal shift. Heart rate still elevated at times but better controlled overall. Albuterol may be contributing to his mild tachycardia. Follow. (7) Seizure disorder: Code(s): G40.909 - Epilepsy, unspecified, not intractable, without status epilepticus Status: Chronic Assessment and Plan: Patient is on Keppra chronically the shelter. Keppra has been switched to IV form. CrCl 8 so Keppra dose decreased. (8) Pleural effusion: Code(s): J90 - Pleural effusion, not elsewhere classified Status: Acute Assessment and Plan: Patient has a large left pleural effusion of unclear etiology. He has undergone multiple thoracentesis without much change in the CXR findings. Path showing atypical cells but too few of cells to make a definite diagnosis. Appeared to be Exudative last admission. Unclear on duration of these findings but subtle airspace opacity in the JULIET seen by CXR 01/01/18. Dtr wants to continue treatment. Underwent thoracentesis 09/25/20 with 1.2L red fluid terry
[2020-09-28 10:53] LABS: Blood Urea Nitrogen 124 mg/dL (9-20)
--- NOTE | 2020-09-28 11:00 | PCFNICU ---
ICU Rounding Note: Pt current nutrition is NPO. Last recorded weight is 62.9 kg. Bowel Motility: + BM 09/28 Labs Reviewed: Hgb 11.2, Hct 35.2, Alb 2.4, K 2.9, GFR 12, Cr 4.5, Glu 116, P 6.4 Meds Noted: Albuterol, Atrovent, Protonix, Vancomycin Hcl, Norepinephrine, Cefepime Hcl, Potassium Chloride Additional Notes: Patient is being advanced to mechanical soft diet with honey thick liquids (same diet from [place]) today, 09/28/2020, ordered by . He will need full assist with eating. Patient is being supplemented with Potassium Chloride for low potassium levels. He does have an unstageable pressure ulcer on both of his ankles as well as a deep tissue sacrum pressure ulcer. Following daily in ICU rounds.
--- NOTE | 2020-09-28 12:40 | PM.PNNEP ---
Progress Note: A&P Assessment and Plan (1) Acute kidney failure, unspecified: Code(s): N17.9 - Acute kidney failure, unspecified Status: Acute Assessment and Plan: the patient has acute kidney injury. Urine electrolytes are pre renal. renal ultrasound is negative. Urine eosinophils are negative his blood pressure is still low and he is on norepinephrine 6 mcgs patient was on IV bicarb. This has been switched to lactated Ringer's. His blood pressure is low and he has very dry mucous membranes. However he does have some swelling in his legs and presacral area. His albumin is 2.4. No history of heart failure. He had an echo in 2017 which showed normal LV function but some LVH. Intake/output is equal. Once he starts eating again we could probably stop his IV fluids. (2) Septic shock: Code(s): A41.9 - Sepsis, unspecified organism; R65.21 - Severe sepsis with septic shock Status: Acute Assessment and Plan: The patient is on broad-spectrum antibiotics. He did have a few white cells in his urine. Blood and urine cultures are negative so far. He is on pressors and fluids (3) Acute hyperkalemia: Code(s): E87.5 - Hyperkalemia Status: Acute Assessment and Plan: potassium is better today (4) HTN (hypertension), benign: Code(s): I10 - Essential (primary) hypertension Status: Acute Assessment and Plan: antihypertensives are on hold. He is on pressors (5) Metabolic acidosis: Code(s): E87.2 - Acidosis Status: Acute Assessment and Plan: off the bicarb drip. (6) Pleural effusion: Code(s): J90 - Pleural effusion, not elsewhere classified Status: Acute Assessment and Plan: He had a thoracentesis yesterday. (7) Dementia: Code(s): F03.90 - Unspecified dementia without behavioral disturbance Status: Chronic Assessment and Plan: The patient is a DNR Subjective Date/time seen: 09/28/20 12:40 Interval history: More awake today. He is in some pain. He just got transferred from [facility] to bed because he just got back from a CT scan. No shortness of breath. Exam Narrative: Exam Narrative: WDWN in NAD skin no rash Or subcu nodules head ncat lungs Decreased breath sounds at the bases cor reg no rub abd BS+ nontender and soft ext 2+ bilateral pre sacral edema. Objective Data Vital Signs Vital Signs: Vital Signs - 24 hr 09/27/20 13:09 09/27/20 14:00 09/27/20 15:34 Temperature Pulse Rate 104 H 112 H 132 H Respiratory Rate 22 H 24 H 21 H Blood Pressure 103/72 121/85 Pulse Oximetry 93 92 09/27/20 15:35 09/27/20 16:00 09/27/20 18:00 Temperature Pulse Rate 113 H 98 90 Respiratory Rate 27 H 14 11 L Blood Pressure 89/70 L 90/68 L 88/61 L Pulse Oximetry 93 91 94 09/27/20 18:21 09/27/20 18:30 09/27/20 20:00 Temperature Pulse Rate 95 Respiratory Rate Blood Pressure 93/63 L Pulse Oximetry 92 97 09/27/20 20:01 09/27/20 20:40 09/27/20 20:42 Temperature 36.5 C Pulse Rate 104 H 94 Respiratory Rate 19 18 Blood Pressure 95/62 L Pulse Oximetry 97 98 09/27/20 20:50 09/27/20 22:00 09/28/20 00:00 Temperature 36.0 C L Pulse Rate 99 103 H 97 Respiratory Rate 18 17 24 H Blood Pressure 90/67 L 109/69 Pulse Oximetry 97 96 09/28/20 02:00 09/28/20 02:15 09/28/20 02:18 Temperature Pulse Rate 91 95 Respiratory Rate 11 L 18 Blood Pressure 93/81 L 103/76 Pulse Oximetry 98 09/28/20 02:19 09/28/20 03:42 09/28/20 03:49 Temperature 36.1 C L Pulse Rate Respiratory Rate Blood Pressure Pulse Oximetry 95 98 09/28/20 04:00 09/28/20 06:00 09/28/20 08:00 Temperature 36.4 C Pulse Rate 93 96 97 Respiratory Rate 29 H 16 24 H Blood Pressure 85/73 L 95/69 L 95/72 L Pulse Oximetry 98 93 94 09/28/20 08:11 09/28/20 08:13 09/28/20 08:18 Temperature Pulse Ra
[2020-09-28 13:33] LABS: Chloride Rand Ur <20 mmol/L (32-290); Creatinine Random Urine 196 mg/dL (20-320)
[2020-09-28 13:39] LABS: Amylase, Pleural Fluid 34 U/L
[2020-09-29] VITALS (16 sets, daily range): BP systolic 95–133; BP diastolic 58–92; PULSE 95–121; RESP 12–96; TEMP 36.3–36.8; O2SAT 18–95
[2020-09-29] MEDS: IPRATROPIUM BR 0.02% INH SOLN 0.5 MG/2.5 ML VIAL INHALATION (02:09)
[2020-09-29] MEDS: ALBUTEROL SULFATE NEB 2.5 MG/0.5 ML INH INHALATION ×2 (05:25→05:29)
[2020-09-29] MEDS: CENTRAL LINE FLUSH 10 ML IV PUSH ×4 (05:26→20:51)
[2020-09-29 06:22] LABS: Hemoglobin 10.5 g/dL (14.0-18.0); Mean Corpuscular HGB Conc 31.8 g/dl (32-36); Mean Corpuscular Hemoglobin 31.2 pg (26-34); Mean Corpuscular Volume 97.9 fl (80-100); Mean Platelet Volume 10.2 fl (7.4-10.4); Platelet Count Result 145 k/mm3 (150-375); Red Blood Count 3.37 M/mm3 (4.6-6.20); White Blood Count 8.5 K/mm3 (4.5-10.0)
[2020-09-29 06:52] LABS: Alanine Aminotransferase 39 U/L (4-50); Albumin Level 2.2 g/dL (3.5-5.1); Alkaline Phosphatase 95 U/L (38-126); Anion Gap 8 mmol/L (8-16); Aspartate Amino Transferase 46 U/L (17-59); Bilirubin,Total 0.8 mg/dL (0.2-1.3); Blood Urea Nitrogen 119 mg/dL (9-20); Calcium 6.3 mg/dL (8.4-10.2); Carbon Dioxide 33 mmol/L (22-30); Chloride 98 mmol/L (98-107); Estimated CRCL calculation 13 ml/min; Estimated Glomerular Filt Rate 16; Glucose 75 mg/dL (75-110); Magnesium 2.6 mg/dL (1.6-2.3); Phosphorus 5.5 mg/dL (2.5-4.5); Potassium 2.8 mmol/L (3.4-5.0); Sodium 139 mmol/L (137-145)
--- NOTE | 2020-09-29 08:38 | PM.IMPN ---
Progress Note: A&P Assessment and Plan (1) Acute respiratory failure with hypoxia: Code(s): J96.01 - Acute respiratory failure with hypoxia Status: Acute Assessment and Plan: The patient presents in acute respiratory failure. ABG 7.33/29/234 on NRB. CXR showing persistent large left pleural effusion. The patient is a DNR. He has undergone multiple thoracentesis with benefit. Was able to be weaned off BiPAP and currently down to 1-2L NC. Continue nebulizer treatments. (2) Shock: Code(s): R57.9 - Shock, unspecified Status: Acute Assessment and Plan: BP 65/51 on admission. Central line placed and pressors started. [place] possible septic shock from PNA? or infected pleural space? or another source but he just completed a course of broad spectrum abx last admission so feel infectious etiology less likely. WBC 14K on admission but no fevers. WBC has since normalized. Suspect more likely that he has HoTN from large pleural effusion and mediastinal shift with compression of the heart and great vessels that is contributing to his SAAD and confusion. Pleural fluid showing many WBC but no MO (but bloody with 19K RBC and 110 WBC). All cultures are NGTD. The patient was on Levophed but was able to be weaned off last night. Currently on Cefepime and Vanco. Discussed with cancer genetics assistant and agree with stopping abx. Septic shock ruled out - shock related to large left pleural effusion with mediastinal compression. (3) Acute renal failure superimposed on chronic kidney disease: Qualifiers: Acute renal failure type: unspecified Chronic kidney disease stage: unspecified stage Qualified Code(s): N17.9 - Acute kidney failure, unspecified; N18.9 - Chronic kidney disease, unspecified Code(s): N17.9 - Acute kidney failure, unspecified; N18.9 - Chronic kidney disease, unspecified Status: Acute Assessment and Plan: The patient's creatinine was 5.9 on admission. Baseline Cr around 1.7. Renal ultrasound on 09/10/2020 with mildly atrophy of left kidney. No hydronephrosis. Probably ATN from hypoperfusion and poor forward flow related to the large effusion. Thoracentesis improving his hemodynamics. Cr better today at 3.6; BUN still 119. Nephrology consulted and appreciate their input. (4) Pleural effusion: Code(s): J90 - Pleural effusion, not elsewhere classified Status: Acute Assessment and Plan: Patient has a large left pleural effusion of unclear etiology but concerning for malignancy. He has undergone multiple thoracentesis without much change in the CXR findings. Path showing atypical cells but too few of cells to make a definite diagnosis. Appeared to be Exudative by Light criteria (except Protein ratio 0.48). Unclear on duration of these findings but subtle airspace opacity in the JULIET seen by CXR 01/01/18. He has undergone thoracentesis 09/25/20 with 1.2L red fluid removed, 09/27 1.2L reddish-tiffany fluid removed and 09/28 with 2L of red fluid removed. CT Chest and abdomen 3cm ill defined mass in the JULIET, large left pleural effusion with rightward mediastinal shift and moderaste sized right pleural effusion. Also a 2cm RUL lung mass, scar vs CA. Rectosigmoid distention but having BMs. Clinically much better probably related to less compression of the mediastinum. Spoke with dtr again today and discussed findings. She wants to continue treatment. Will need to be transferred once more stable for definitive diagnosis and treatment. (5) Electrolyte abnormality: Code(s): E87.8 - Other disorders of electrolyte and fluid balance, not elsewhere classified Status: Acute Assessment and Plan: Hypokalemic agin today with potassium 2.8. Calcium also remains low at 6.3 (corrected 7.7). Phos elevated but better at 5.5; due to the SAAD/CKD. Potassium to be replaced again. (6) Acute hyperkalemia: Code(s): E87.5 - Hyperkalemia Status: Acute
[2020-09-29] MEDS: SILVERGEL (ELTA) 45 ML 1 APPLIC TOPICAL (08:43)
[2020-09-29] MEDS: PANTOPRAZOLE SODIUM IV 40 MG VIAL IV PUSH ×2 (08:43→20:48)
--- NOTE | 2020-09-29 08:50 | WPDINTPN ---
Progress Note: A&P Assessment and Plan (1) Acute respiratory failure with hypoxia and hypercapnia: Code(s): J96.01 - Acute respiratory failure with hypoxia; J96.02 - Acute respiratory failure with hypercapnia Status: Acute Assessment and Plan: patient presented with shortness of breath with dosing, chest x-ray revealed a large left-sided pleural effusion - off note patient was admitted from 09/09/2020 to 09/19/2020 with similar complains of left sided pleural effusion requiring multiple thoracenteses with removal of total of 6 L. - pathology of the pleural fluid at that time showed few atypical cells suspicious for neoplasm - patient was supposed to follow-up at [facility] with thoracic surgery - chest x-ray again on admission this time shows large left-sided pleural effusion - 09/25/2020 ultrasound-guided thoracentesis with removal of 1200 mL of red fluid - 09/27/2020 ultrasound-guided thoracentesis with removal of 1200 mL of reddish tiffany colored fluid - 09/28/2020: ultrasound-guided thoracentesis yielding 2000 mL of red fluid - OFF lovephed - Discontinue cefepime and vancomycin as cultures are negative - patient on room air with adequate O2 sats. (2) Pleural effusion: Code(s): J90 - Pleural effusion, not elsewhere classified Status: Acute Assessment and Plan: recurrent large left-sided pleural effusion - 09/25/2020 ultrasound-guided thoracentesis with removal of 1200 mL of red fluid - 09/27/2020 ultrasound-guided thoracentesis with removal of 1200 mL of reddish tiffany colored fluid - ultrasound-guided thoracentesis yielding 2000 mL of red fluid. (3) Septic shock: Code(s): A41.9 - Sepsis, unspecified organism; R65.21 - Severe sepsis with septic shock Status: Acute Assessment and Plan: RESOLVED - OFF LEVOPHED acute respiratory failure, acute on chronic kidney injury, hypotension - source could be pneumonia, UTI - left IJ central line in place - ANTIBIOTICS DISCONTINUED - continue maintenance IV fluids with LR (4) Acute renal failure superimposed on chronic kidney disease: Qualifiers: Acute renal failure type: unspecified Chronic kidney disease stage: unspecified stage Qualified Code(s): N17.9 - Acute kidney failure, unspecified; N18.9 - Chronic kidney disease, unspecified Code(s): N17.9 - Acute kidney failure, unspecified; N18.9 - Chronic kidney disease, unspecified Status: Acute Assessment and Plan: acute on chronic kidney disease, could be related to septic shock, hypotension, infection, patient also on Lasix at home which could have contributed to the acute kidney injury - URINE OUTPUT IMPROVING, CREATININE TRENDING DOWN - continue to monitor urine output, renal function and electrolytes - 09/25/2020: renal ultrasound did not show any stones, masses or hydronephrosis - Urine lytes likely prerenal, patient has received adequate amount of IV fluids, will continue to monitor - nephrology following the patient - HYPOKALEMIA: potassium being replaced (5) Dementia: Code(s): F03.90 - Unspecified dementia without behavioral disturbance Status: Chronic Assessment and Plan: chronic (6) Chronic GERD: Code(s): K21.9 - Gastro-esophageal reflux disease without esophagitis Status: Chronic Assessment and Plan: continue Protonix (7) Atrial fibrillation: Code(s): I48.91 - Unspecified atrial fibrillation Status: Chronic Assessment and Plan: patient has a history of atrial fibrillation not on any anticoagulation - initially patient was AFib RVR, currently rate controlled after IV fluids - continue to monitor (8) Seizure disorder: Code(s): G40.909 - Epilepsy, unspecified, not intractable, without status epilepticus Status: Chronic Assessment and Plan: continue Keppra IV (9) DVT prophylaxis: Code(s): Z29.9 - Encounter for prophylactic measures
--- NOTE | 2020-09-29 09:21 | PM.PNNEP ---
Progress Note: A&P Assessment and Plan (1) Acute kidney failure, unspecified: Code(s): N17.9 - Acute kidney failure, unspecified Status: Acute Assessment and Plan: the patient has acute kidney injury. Urine electrolytes are pre renal. renal ultrasound is negative. Urine eosinophils are negative his blood pressure is better now. He is off the norepinephrine. The patient is on lactated Ringer's at 75 per hour. His creatinine is better. Once he starts eating again we could probably stop his IV fluids. (2) Septic shock: Code(s): A41.9 - Sepsis, unspecified organism; R65.21 - Severe sepsis with septic shock Status: Acute Assessment and Plan: The patient is on broad-spectrum antibiotics. He did have a few white cells in his urine. Blood and urine cultures are negative so far. He is on fluids (3) Acute hyperkalemia: Code(s): E87.5 - Hyperkalemia Status: Acute Assessment and Plan: potassium is better today (4) HTN (hypertension), benign: Code(s): I10 - Essential (primary) hypertension Status: Acute Assessment and Plan: antihypertensives are on hold. He is on pressors (5) Metabolic acidosis: Code(s): E87.2 - Acidosis Status: Acute Assessment and Plan: off the bicarb drip. (6) Pleural effusion: Code(s): J90 - Pleural effusion, not elsewhere classified Status: Acute Assessment and Plan: He had a thoracentesis yesterday. (7) Dementia: Code(s): F03.90 - Unspecified dementia without behavioral disturbance Status: Chronic Assessment and Plan: The patient is a DNR Subjective Date/time seen: 09/29/20 09:21 Interval history: More awake today. No belly pain No shortness of breath. Exam Narrative: Exam Narrative: WDWN in NAD skin no rash Or subcu nodules head ncat lungs Decreased breath sounds at the bases cor reg no rub or gallop abd BS+ nontender and soft ext 2+ bilateral pre sacral edema. Objective Data Vital Signs Vital Signs: Vital Signs - 24 hr 09/28/20 10:00 09/28/20 10:38 09/28/20 12:00 Temperature Pulse Rate 106 H 101 H 107 H Respiratory Rate 23 H 22 H 30 H Blood Pressure 90/69 L 112/90 104/62 Pulse Oximetry 96 94 93 09/28/20 13:25 09/28/20 13:32 09/28/20 14:00 Temperature Pulse Rate 117 H 115 H 98 Respiratory Rate 19 20 38 H Blood Pressure 125/62 Pulse Oximetry 91 09/28/20 16:00 09/28/20 16:40 09/28/20 18:00 Temperature Pulse Rate 124 H 109 H 100 Respiratory Rate 17 27 H 23 H Blood Pressure 87/58 L 125/82 115/79 Pulse Oximetry 93 92 93 09/28/20 20:00 09/28/20 20:03 09/28/20 20:05 Temperature 36.1 C L Pulse Rate 99 97 108 H Respiratory Rate 26 H 19 Blood Pressure 122/75 Pulse Oximetry 94 95 09/28/20 20:12 09/28/20 22:00 09/29/20 00:00 Temperature 36.3 C L Pulse Rate 102 H 102 H 98 Respiratory Rate 15 28 H 24 H Blood Pressure 114/92 H 103/71 Pulse Oximetry 91 92 09/29/20 02:00 09/29/20 04:00 09/29/20 04:01 Temperature Pulse Rate 99 100 95 Respiratory Rate 36 H 14 Blood Pressure 100/61 119/67 Pulse Oximetry 92 92 09/29/20 06:00 09/29/20 07:47 Temperature Pulse Rate 96 Respiratory Rate 17 Blood Pressure 106/73 Pulse Oximetry 90 92 Intake/Output Intake/Output: Intake & Output 09/26/20 09/27/20 09/28/20 09/29/20 23:59 23:59 23:59 23:59 Intake Total 2465.0 2871.0 1594.0 Output Total 600 1700 2800 600 Balance 1865.0 1171.0 -1206.0 -600 Meds/Results Medications: Active Medications Generic Name Dose Route Start Last Admin Trade Name Freq PRN Reason Stop Dose Admin Albuterol 2.5 mg 09/25/20 14:00 09/29/20 08:16 Albuterol Sulfate Neb 2.5 Mg/0.5 Ml Inh INHALATION Not Given Q6HRT [facility] Heparin Sodium (Porcine) 5,000 units 09/26/20 21:00 09/29/20 08:57 Heparin Sodium 5,000 Units/Ml Vial SUB-Q Not Giv
--- NOTE | 2020-09-29 11:33 | PCSTNOTE ---
Attempted to see the patient for a Bedside Swallow Evaluation twice on this date. Both times he refused any PO trials. Nursing reported that the patient has been refusing medication as well. Will attempt BSE tomorrow morning, 09/30/20. Nursing made aware and agreeable to recommendations.
[2020-09-29 11:47] LABS: EDCOVIDSCREEN Negative (Negative)
[2020-09-29] MEDS: levETIRAcetam IV 250 MG in DEXTROSE 5% 100 ML 430 MG IVPB ×2 (12:30→20:53)
[2020-09-29] MEDS: LACTATED RINGERS 1,000 ML 75 ML IV CONT (13:15)
--- NOTE | 2020-09-29 13:20 | PC.NURSE ---
This patient, Rich Elliott, was received from [icu ] on 09/29/20 at 1320. Patient/family oriented to unit policies and routines
[2020-09-29] MEDS: HEPARIN SODIUM 5,000 UNITS/ML VIAL 5000 UNITS SUB-Q (20:56)
[2020-09-30 01:40] LABS: Albumin Pleural Fluid 1.8 g/dL
--- NOTE | 2020-10-01 07:11 | PM.TDS ---
Transfer Discharge Sum: Prov Provider Date of admission: 09/25/20 12:16 Primary care physician: Yovany Crews, MD Admitting clinician: Santos Pope MD Consults: 09/25/20 Consult to Physician Routine Comment: Consulting Provider: Davey Miranda call or contact centre operator/MD group to consult: nephrology Reason for consultation: joseph on crf Has provider been notified: Yes Wound/ET Consult Routine Reason for Consult:: see downloaded pictues of coccyx, upper mid back and left ankle wounds 09/25/20 12:18 Consult to Physician Routine Comment: Consulting Provider: Hudson Knapp Reason for consultation: ICU management Has provider been notified: Yes 09/25/20 13:54 Consult to Physician Routine Comment: Consulting Provider: Erasto Lara call or contact centre operator/MD group to consult: PULMONOLOGY Reason for consultation: recurrent left-sided large pleural effusion Has provider been notified: Yes Attending physician on discharge: Tucker Pope Discharging clinician: Tucker Pope Anticipated date of transfer: 09/30/20 Receiving physician/facility: [place]. Spoke with Dr Nagel DS: Admitting Diagnosis Admitting Diagnosis Admitting Diagnosis: Acute respiratory failure DS: Discharge Diagnosis Discharge Diagnosis (1) Acute respiratory failure with hypoxia: Code(s): J96.01 - Acute respiratory failure with hypoxia Status: Acute Assessment and Plan: The patient presented in acute respiratory failure. ABG 7.33/29/234 on NRB. CXR showing persistent large left pleural effusion. The patient is a DNR. He has recently undergone multiple thoracentesis with benefit but no change in the large effusion. Was able to be weaned off BiPAP and down to 1-2L NC. Also treated with nebulizer treatments. (2) Shock: Code(s): R57.9 - Shock, unspecified Status: Acute Assessment and Plan: BP 65/51 on admission. Central line placed and pressors started. [place] possible septic shock from PNA? or infected pleural space? or another source but he just completed a course of broad spectrum abx last admission so felt infectious etiology less likely. WBC 14K on admission but no fevers. He was started on broad spectrum abx and WBC normalized. Suspect more likely that he has HoTN from large pleural effusion and mediastinal shift with compression of the heart and great vessels that is contributing to his HoTN, JOSEPH and confusion. Pleural fluid showing many WBC but no MO (but bloody with 19K RBC and 110 WBC). All cultures are NGTD. The patient was on Levophed but was able to be weaned off probably related to mediastinal shift. Discussed with lifestyle consultant and we stopped abx. Septic shock ruled out - shock related to large left pleural effusion with mediastinal compression. (3) Acute renal failure superimposed on chronic kidney disease: Qualifiers: Acute renal failure type: unspecified Chronic kidney disease stage: unspecified stage Qualified Code(s): N17.9 - Acute kidney failure, unspecified; N18.9 - Chronic kidney disease, unspecified Code(s): N17.9 - Acute kidney failure, unspecified; N18.9 - Chronic kidney disease, unspecified Status: Acute Assessment and Plan: The patient's creatinine was 5.9 on admission. Baseline Cr around 1.7. Renal ultrasound on 09/10/2020 with mildly atrophy of left kidney. No hydronephrosis. Probably ATN from hypoperfusion and poor forward flow related to the large effusion. Thoracentesis improving his hemodynamics. Cr improved to 3.6; BUN still 119. Nephrology was consulted and appreciated their input. (4) Pleural effusion: Code(s): J90 - Pleural effusion, not elsewhere classified Status: Acute Assessment and Plan: Patient has a large left pleural effusion of unclear etiology but concerning for malignancy. He has undergone multiple thoracentesis without much change in the CXR findings. Path showing atypical cells but too
--- NOTE | 2020-10-08 13:34 | PC.NURSE ---
Anaerobic and Aerobic are negative. Dr. Niko brooke.
--- NOTE | 2020-11-13 13:34 | PC.NURSE ---
AFB is negative. Dr. Niko brooke.
== END 2020-09-30 00:20 | disposition short-term general hospital (02) | DRG 189 ==
LOC: ANHED 12:26 → ANHICU 13:22 → ANHIMU 09-29 13:08
PROVIDERS: Internal Medicine; Internal Medicine Nephrology; Nurse Practitioner; Admitting Provider Internal Medicine; Emergency Provider Emergency Medicine; PCP Internal Medicine; Visit Provider Internal Medicine
DX: J96.01 Acute respiratory failure with hypoxia (principal); N17.9 Acute kidney failure, unspecified; J90 Pleural effusion, not elsewhere classified; R57.9 Shock, unspecified; J96.02 Acute respiratory failure with hypercapnia; Z20.822 Contact with and (suspected) exposure to COVID-19; I12.9 Hypertensive chronic kidney disease with stage 1 through stage 4 chronic kidney disease, or unspecified chronic kidney disease; N18.9 Chronic kidney disease, unspecified; I48.91 Unspecified atrial fibrillation; G30.9 Alzheimer's disease, unspecified; F02.80 Dementia in other diseases classified elsewhere, unspecified severity, without behavioral disturbance, psychotic disturbance, mood disturbance, and anxiety; N40.0 Benign prostatic hyperplasia without lower urinary tract symptoms; G40.909 Epilepsy, unspecified, not intractable, without status epilepticus; F41.9 Anxiety disorder, unspecified; K21.9 Gastro-esophageal reflux disease without esophagitis; E87.5 Hyperkalemia; Z66 Do not resuscitate; Z79.82 Long term (current) use of aspirin; Z79.899 Other long term (current) drug therapy; Z86.73 Personal history of transient ischemic attack (TIA), and cerebral infarction without residual deficits; Z87.891 Personal history of nicotine dependence; Z86.718 Personal history of other venous thrombosis and embolism; Z86.14 Personal history of Methicillin resistant Staphylococcus aureus infection
CPT/HCPCS: 32555; 36415; 36556; 36600; 71045; 71250; 74150; 76775; 80053; 80202; 81001; 82042; 82150; 82375; 82436; 82550; 82570; 82805; 82945; 83050; 83605; 83615; 83735; 83986; 84100; 84133; 84157; 84300; 84439; 84443; 85025; 85027; 85380; 85610; 85730; 85999; 86140; 87015; 87040; 87070; 87075; 87086; 87102; 87116; 87205; 87206; 87426; 88104; 88108; 88184; 88305; 89051; 93005; 93970; 93971; 94003; 94640; 96361; 96365; 96367; 99291; C1751; C9113; C9803; J0131; J0456; J0692; J0696; J1644; J1815; J1953; J3370; J3480; J7030; J7040; J7060; J7070; J7120